=== PATIENT | male | born 1960 | race Caucasian/White ===

== ENCOUNTER 2018-04-07 05:52 | Outpatient (CLI) | payer OTHER ==
[~2018-04-07] VITALS: Ht 180.3 cm; Wt 111.6 kg
[2018-04-07] MEDS ORDERED: ASPI-586 PO (16:09)
[2018-04-07] MEDS ORDERED: METO-395 PO (16:09)
[2018-04-07] MEDS ORDERED: LISI-556 PO (16:09)
[2018-04-07] MEDS ORDERED: OMEP40CA36 PO (16:09)
[2018-04-07] MEDS ORDERED: ATOR80TA76 PO (16:09)
[2018-04-07] MEDS ORDERED: FESO8TAB PO (16:09)
[2018-04-07] MEDS ORDERED: SILD100T PO (16:09)
== END 2018-04-07 16:10 | disposition home or self-care (01) ==
LOC: PREOP 05:52
PROVIDERS: ATTEND Surgery
DX: Z01.818 Encounter for other preprocedural examination (principal)

== ENCOUNTER → 2018-04-09 | Outpatient (CLI) | payer OTHER ==
[~2018-04-09] MED LIST: ASPI-586 PO; ATOR80TA76 PO; FESO8TAB PO; LISI-556 PO; METO-395 PO; OMEP40CA36 PO; SILD100T PO
[2018-04-10 08:54] VITALS: BP 149/85
--- NOTE | 2018-04-10 08:54 | Cardiology Stress Test Report ---
Stress Test Report Date of Procedure/Referring: PCP Marco Lee MD Admitting Physician Yue Mcgarry DO Indications: Chest pain Baseline Heart Rate: 75 Baseline Blood Pressure: Blood Pressure Systolic: 149 Blood Pressure Diastolic: 85 Baseline EKG: Baseline EKG: normal sinus rhythm Summary/Conclusion: Summary: In summary, the patient started exercising with a baseline heart rate, blood pressure and EKG mentioned above Patient was able to exercise for a total of 6 minutes on Freddy protocol, 7.3 METs Maximum heart rate 149 Maximum blood pressure 216/75 Stress EKG Minimal nondiagnostic changes Recovery EKG Return to baseline Conclusion: 1. Good exercise tolerance for a total of 6 minutes on Freddy protocol, 7.3 METs , achieving 91 percent of maximum expected heart rate 2. Minimal nondiagnostic EKG changes with exercise returned to baseline during recovery 3. Occasional PVCs noted during recovery 4. Severe hypertensive response to exercise returned to baseline during recovery MARCO LEE MD Apr 10, 2018 08:54
== END ==
LOC: CARD 13:36
PROVIDERS: ATTEND Internal Medicine Cardiovascular Disease
DX: R07.89 Other chest pain (principal); E78.2 Mixed hyperlipidemia; I10 Essential (primary) hypertension; R00.2 Palpitations; E66.9 Obesity, unspecified; Z68.34 Body mass index [BMI] 34.0-34.9, adult
CPT/HCPCS: 93017

== ENCOUNTER 2018-04-11 12:30 | Day surgery (SDC) | payer OTHER ==
[~2018-04-11] VITALS: Ht 180.3 cm; Wt 111.6 kg
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
[2018-04-11 12:35] VITALS: BP 132/90
--- OUTSIDE RECORDS SUMMARY | 2018-04-11 12:35 | XMS REPORT ---
Author Author SIRIA PETERSON Organization [facility] Address [address] [place] [address] Care Team Providers Care Healthcare Economics Consultant Name Role Phone SIRIA PETERSON Unavailable PROBLEMS Type Condition ICD9-CM Code JCE02-OD Code Onset Dates Condition Status SNOMED Code Problem Benign prostatic hyperplasia with lower urinary tract symptoms N40.1 Active 050264051 Problem Seasonal allergic rhinitis, unspecified allergic rhinitis trigger J30.2 Active 440388898 Problem Overactive bladder N32.81 Active 863943901 Problem Hypertension, benign I10 Active 03200917 Problem Low back pain M54.5 Active [id number] ALLERGIES No Known Allergies ENCOUNTERS Encounter Location Date Diagnosis [facility] [address] [address] Feb, Benign prostatic hyperplasia with lower urinary tract symptoms N40.1 ; Frequency of micturition R35.0 ; History of hepatitis Z86.19 and Colon cancer screening Z12.11 [facility] [address] [place] [id number] [place] [address] 62721- 0887 Feb, [facility] [id number] [place] [address] 37683- 5398 Feb, Benign prostatic hyperplasia with lower urinary tract symptoms N40.1 ; Frequency of micturition R35.0 ; History of hepatitis Z86.19 and Colon cancer screening Z12.11 [facility] [id number] [place] [address]116 -2025 Feb, Skin rash R21 [facility] [place] [id number] [place] [address]86 -8966 Nov, Spasm of muscle of lower back M62.830 [facility] [id number] [place] [address]854 -6307 Sep, Right facial swelling R22.0 [place] [address] [address]- [address]99 14 Jun, 2017 Hypertension, benign I10 [place] [address] [address]- [address]160 09 Jun, 2017 Hypertension, benign I10 and Low back pain M54.5 [place] [address] 6[address]12- 6863 18 Jan, 2017 Encounter for immunization Z23 [facility] [address] [address] Jun, Otitis media with effusion, right H65.91 [facility] W[facility] IN [address] [address] Jun, Seasonal allergic rhinitis, unspecified allergic rhinitis trigger J30.2 [facility] WALK IN [address] 24[address]608 17 Jun, 2016 [place] [address] 71642- 6846 15 Jun, 2016 Hypertension, benign I10 [facility] W[facility] IN [address] [address] Jun, Acute suppurative otitis media of right ear without spontaneous rupture of tympanic membrane, recurrence not specified H66.001 [place] [address] 02166- 2228 May, Hypertension, benign I10 [place] [address] 91871- 2803 Mar, Ganglion cyst of finger of right hand M67.441 [facility] W[facility] IN [address] [address] 09 Mar, 2016 Sore throat J02.9 ; Fever in other diseases R50.81 and Bronchitis J40 [address] [address]- [address] Feb, [facility] [address] [address] Feb, [facility] [id number] [place] [address] 45479- 1771 Feb, [facility] [id number] [place] [address] 81090- 7530 Feb, [facility] [id number] [place] [address] 02751- 0540 Feb, [facility] [id number] [place] [address] 92177- 1321 13 Dec, 2015 Ganglion cyst of finger of right hand M67.441 [facility] [id number] [place] [address] 51166 -6512 07 Dec, 2015 [place] [address] [place] [id number] [address] 02 Dec Encounter for immunization Z23 and Laceration of left hand, initial encounter S61.412A [facility] [address] [place] [address] 47458 -8957 Nov, Ganglion cyst of finger of right hand M67.441 [facility] [address] [place] [address] 30336- 6245 Nov, [facility] [id number] [place] [address] 38388- 5989 Oct, [facility] [id number] [place] [address] 18631 -8969 Jun, Sinusitis J32.9 [facility] [id number] [place] [address] 44930- 4114 Apr, [facility] [id number] [place] [address] 47540- 4949 Apr, [facility] [id number] [place] [address] 09549- 3835 Apr, [facility] [id number] [place] [address] 01028- 3851 Apr, [facility] [id number] [place] [address] 79249- 9675 Apr, [facility] [id number] [place] [address] 13844- 5037 Mar, [facility] [address] 12363- 0034 Mar, Hypertension, benign I10 [facility] [address] 84233- 8283 Mar, Hypertension, benign I10 [facility] [id number] [place] [address] 77524 -5259 Mar, Bronchitis J40 and Cough R05 [facility] [address] 02275- 2878 Jan, Insect bite (nonvenomous), left knee, initial encounter S80.262A [facility] [address] [address]20- 1856 Jan, HTN (hypertension) 401.9 [facility] [id number] [place] [address] 23143- 0460 Nov, HTN (hypertension) 401.9 [facility] [id number] [place] [address] 77327- 0608 Nov, HTN (hypertension) 401.9 [facility] [id number] [place] [address] 96730- 2309 Oct, [facility] [id number] [place] [address] [id number] Oct, Dental examination V72.2 [facility] [id number] [place] [address] 53089- 3924 Jul, [facility] [address] [place] [address]- 0992 13 Jul, 2014 [facility] [place] [facility] [address] [id number] [place] [address]- 6439 Jun, [facility] [place] [facility] [address] [id number] [place] [address]- 3459 Jun, [facility] [place] [facility] [address] [id number] [place] [address]- 5399 Apr, [facility] [place] [facility] [address] [id number] [place] [address]- 7774 Apr, [facility] [place] [facility] [address] [id number] [place] [address]- 3782 Apr, [facility] [place] [facility] [address] [id number] [place] [address]- 9497 Apr, [facility] [place] [facility] [address] [id number] [place] [address]- 8993 Apr, [facility] [place] [facility] [address] [id number] [place] [address]- 7655 Apr, [facility] [place] [facility] [address] [id number] [place] [address]- 7221 Apr, [facility] [place] [facility] [address] [id number] [place] [address]- 6751 Apr, [facility] [place] [facility] [address] [id number] [place] [address]- 3610 Apr, [facility] [place] [facility] [address] [id number] [place] [address]- 3953 Oct, [facility] [place] [facility] [address] [id number] [place] [address]- 7778 Oct, [facility] [place] [facility] [address] [id number] [place] [address]- 2927 Sep, [facility] [place] [facility] [address] [id number] [place] [address]- 0612 Sep, [facility] [place] [facility] [address] [id number] [place] [address]- 4373 Sep, [facility] [place] [facility] [address] [id number] [place] [address]- 4708 Sep, [facility] [place] [facility] [address] [id number] [place] [address]- 0428 Sep, [facility] [place] [facility] [address] [id number] [place] [address]- 4685 Sep, [facility] [place] [facility] [address] [id number] [place] [address]- 3452 Jul, [facility] [place] [facility] [address] [id number] [place] [address]- 2762 Jul, [facility] [place] [facility] [address] [id number] [place] [address]- 1912 Jul, [facility] [place] [facility] [address] [id number] [place] [address]- 9380 Jul, [facility] [place] [facility] [address] [id number] [place] [address]- 1011 Jul, [facility] [place] [facility] [address] [id number] [place] [address]- 9480 Jul, [facility] [place] [facility] [address] [id number] [place] [address]- 0016 Jul, [facility] [place] [facility] [address] [id number] [place] [address]- 0036 Jul, [facility] [place] [facility] [address] [id number] [place] [address]- 9736 Jun, [facility] [place] [facility] [address] [id number] [place] [address]- 0732 Jun, [facility] [place] [facility] [address] [id number] [place] [address]- 4064 Jun, [facility] [place] [facility] [address] [id number] [place] [address]- 1476 Jun, [facility] [place] [facility] [address] [id number] [place] [address]- 9273 Jun, [facility] [place] [facility] [address] [id number] [place] [address]- 1516 Jun, [facility] [place] [facility] [address] [id number] [place] [address]- 0529 Jun, [facility] [place] [facility] [address] [id number] [place] [address]- 0990 Jun, [facility] [place] [facility] [address] [id number] [place] [address]- 5878 Jun, [facility] [place] [facility] [address] [id number] [place] [address]- 4763 Jun, [facility] [place] [facility] [address] [id number] [place] [address]- 8858 Apr, [facility] [place] [facility] [address] [id number] [place] [address]- 0247 Apr, [facility] [place] [facility] [address] [id number] [place] [address]- 5594 Apr, [facility] [place] [facility] [address] [id number] [place] [address]- 3758 Apr, [facility] [place] [facility] [address] [id number] [place] [address]- 0930 Apr, [facility] [place] [facility] [address] [id number] [place] [address]- 2445 Apr, [facility] [place] [facility] [address] [id number] [place] [address]- 3966 Mar, [facility] [place] [facility] [address] [id number] [place] [address]- 0375 Mar, [facility] [place] [facility] [address] [id number] [place] [address]- 4122 Mar, [facility] [place] [facility] [address] [id number] [place] [address]- 3386 Mar, [facility] [address] [id number] [place] [address]- 4357 Mar, [facility] [address] [id number] [place] [address]- 9953 Mar, [facility] [address] [id number] [place] [address]- 0830 Mar, [facility] [address] [id number] [place] [address]- 9653 Mar, [facility] [address] [id number] [place] [address]- 4691 Mar, [facility] [address] [id number] [place] [address]- 7384 Feb, [facility] [address] [id number] [place] [address]- 6238 Feb, [facility] [address] [id number] [place] [address]- 2779 Dec, [facility] [address] [id number] [place] [address]- 0073 Dec, [facility] [address] [id number] [place] [address]- 2451 Nov, [facility] [place] [facility] [address] [id number] [place] [address]- 7946 14 Nov, 2012 [facility] [address] [id number] [place] [address]- 6383 Nov, [facility] [place] [facility] [address] [id number] [place] [address]- 2569 17 Oct, 2012 [facility] [place] [facility] [address] [id number] [place] [address]- 5745 Sep, [facility] [address] [id number] [place] [address]- 1654 Sep, [facility] [address] [id number] [place] [address]- 1299 02 Jul, 2012 [facility] [place] [facility] [address] [id number] [place] [address]- 0378 28 Jun, 2012 [facility] [place] [facility] [address] [id number] [place] [address]- 5536 22 Jun, 2012 [facility] [place] [facility] [address] [id number] [place] [address]- 6606 Jun, [facility] [place] [facility] [address] [id number] [place] [address]- 0316 Jun, [facility] [place] [facility] [address] [id number] [place] [address]- 6700 20 Jun, 2012 [facility] [place] [facility] [address] [id number] [place] [address]- 5605 Jun, [facility] [place] [facility] [address] [id number] [place] [address]- 5616 08 Jun, 2012 [facility] [place] [facility] [address] [id number] [place] [address]- 5641 07 Jun, 2012 [facility] [place] [facility] [address] [id number] [place] [address]- 7773 Feb, [facility] [place] [facility] [address] [id number] [place] [address]- 3987 23 Feb, 2012 [facility] [place] [facility] [address] [id number], [place] [address]- 4394 20 Feb, 2012 [facility] [place] [facility] [address] [id number] [place] [address]- 3226 Feb, [facility] [place] [facility] [address] [id number] [place] [address]- 1286 19 Feb, 2012 [facility] [place] [facility] [address] [id number], [place] [address]- 0990 14 Feb, 2012 [facility] [place] [facility] [address] [id number], [place] [address]- 0048 13 Feb, 2012 [facility] [place] [facility] [address] [id number] [place] [address]- 7040 13 Feb, 2012 [facility] [place] [facility] [address] [id number] [place] [address]- 1020 12 Feb, 2012 [facility] [place] [facility] [address] [facility] [id number] [place] [address]- 7780 12 Feb, 2012 [facility] [place] [facility] [address] [id number] [place] [address]- 1269 16 Jan, 2012 [facility] [place] [facility] [address] [id number] [place] [address]- 6375 16 Jan, 2012 [facility] [place] [facility] [address] [id number] [place] [address]- 8210 16 Jan, 2012 [facility] [place] [facility] [address] [facility] [facility] [id number] [place] [address]- 3880 16 Jan, 2012 [facility] [place] [facility] [address] [id number] [place] [address]- 6772 18 Dec, 2011 [facility] [place] [facility] [address] [facility] [facility] [id number] [place] [address]- 9694 14 Dec, 2011 [facility] [place] [facility] [address] [facility] [facility] [id number] [place] [address]- 1377 13 Dec, 2011 [facility] [place] [facility] [address] [id number] [place] [address]- 7737 14 Nov, 2011 [facility] [place] [facility] [address] [id number], [place] [address]- 2238 Nov, [facility] [place] [facility] [address] [id number] [place] [address]- 6343 Nov, [facility] [place] [facility] [address] [facility] [facility] [id number] [place] [address]- 7129 05 Oct, 2011 [facility] [place] [facility] [address] [facility] [facility] [id number] [place] [address]- 9723 Sep, [facility] [place] [facility] [address] [id number] [place] [address]- 5660 11 Sep, 2011 [facility] [place] [facility] [address] [id number] [place] [address]- 9446 24 Aug, 2011 [facility] [place] [facility] [address] [id number] [place] [address]- 9806 August, [facility] [place] [facility] [address] [id number] [place] [address]- 2964 August, [facility] [place] [facility] [address] [id number] [place] [address]- 2967 Jul, [facility] [place] [facility] [address] [id number] [place] [address]- 6327 30 Jun, 2011 [facility] [place] [facility] [address] [id number] [place] [address]- 5803 Jun, [facility] [place] [facility] [address] [id number] [place] [address]- 8848 Jun, [facility] [place] [facility] [address] [id number] [place] [address]- 0763 16 Jun, 2011 [facility] [place] [facility] [address] [id number] [place] [address]- 8096 14 Jun, 2011 [facility] [place] [facility] [address] [id number] [place] [address]- 4830 May, [facility] [place] [facility] [address] [id number] [place] [address]- 6723 May, [facility] [place] [facility] [address] [id number] [place] [address]- 4574 May, [facility] [place] [facility] [address] [id number] [place] [address]- 1148 17 May, 2011 [facility] [place] [facility] [address] [id number] [place] [address]- 0192 Apr, [facility] [place] [facility] [address] [id number], [place] [address]- 6804 Apr, [facility] [place] [facility] [address] [id number] [place] [address]- 0504 Apr, [facility] [place] [facility] [address] [id number] [place] 9998 Apr, [facility] [place] [facility] [address] [id number] [place] [address]- 8387 Mar, [facility] [place] [facility] [address] [id number], [place] [address]- 0899 Mar, [facility] [place] [facility] [address] [id number] [place] [address]- 1141 Feb, [facility] [place] [facility] [address] [id number] [place] [address]- 9494 Feb, [facility] [place] [facility] [address] [id number] [place] [address]- 7458 Feb, [facility] [place] [facility] [address] [id number], [place] [address]- 9929 Feb, [facility] [place] [facility] [address] [id number], [place] [address]- 3217 Feb, [facility] [place] [facility] [address] [id number] [place] [address]- 0647 Feb, [facility] [place] [facility] [address] [id number], [place] [address]- 0613 Jan, [facility] [place] [facility] [address] [id number], [place] [address]- 2326 Jan, [facility] [place] [facility] [address] [id number], [place] [address]- 4759 Jan, [facility] [place] [facility] [address] [id number], [place] [address]- 6898 Jan, [facility] [place] [facility] [address] [id number], [place] [address]- 3435 Jan, [facility] [place] [facility] [address] [facility] [address] [facility] [id number] [place] [address]- 6248 Jan, [facility] [address] [id number] [address]- 0304 Mar, [facility] [address] [address]- 1440 Mar, [facility] [address] [id number] [address]- 4796 Mar, [facility] [address] [id number] [address]- 1002 Mar, [facility] [address] [address]- 7033 Feb, IMMUNIZATIONS No Known Immunizations SOCIAL HISTORY Never Assessed REASON FOR VISIT HTN, PT reports this is yearly -[facility] PLAN OF CARE VITAL SIGNS Height 70 in 2018-03-19 Weight 242.5 lbs 2018-03-19 Temperature 98.6 degrees Fahrenheit 2018-03-19 Heart Rate 77 bpm 2018-03-19 Respiratory Rate 18 2018-03-19 Oximetry 98 % 2018-03-19 BMI 34.79 kg/m2 2018-03-19 Blood pressure systolic 128 mmHg 2018-03-19 Blood pressure diastolic 70 mmHg 2018-03-19 MEDICATIONS Medication Instructions Dosage Frequency Start Date End Date Duration Status Acyclovir 400 mg Orally Twice a day 1 tablet 12h May, Active Omeprazole 20 mg Orally 2 times a day 1 capsule 12h 30 Active Claritin 10 mg Orally Once a day 1 tablet 24h Active Toprol XL 100 MG Orally Once a day 1 tablet 24h Active ProAir HFA 108 (90 Base) MCG/ACT Inhalation every 4 hrs 2 puffs as needed 4h Jun, Not-Taking Daina 0.5-0.4 MG Orally Once a day 1 capsule 24h Active Lipitor 80 MG Orally Once a day 1 tablet 24h Active Flonase Allergy Relief 50 MCG/ACT Nasally twice per day 1 spray in each nostril Jun, Active Promethazine-Codeine 6.25-10 MG/5ML Orally every 6 hrs 5 ml as needed 6h Jun, Not-Taking Toviaz 8 MG Orally Once a day 1 tablet 24h 30 Active Viagra 100 MG Orally Once a day 1 tablet as needed 24h 17 Nov, 2015 Active Cyclobenzaprine HCl 10 MG Orally Three times a day 1 tablet as needed 8h 5 days Not-Taking RESULTS No Results PROCEDURES No Known procedures INSTRUCTIONS MEDICATIONS ADMINISTERED No Known Medications MEDICAL (GENERAL) HISTORY Type Description Date Medical History hypertension Medical History hx of hepatitis C; finished treatment 2011 Medical History hyperlipidemia Medical History enlarged prostate Surgical History cholecystectomy by Dr. Mckenzie 2005 Surgical History otolaryngologic surgery-parathyroid removed by Dr. Cuenca 2005 Surgical History orthopaedic surgery d/t [facility] Hospitalization History Hospitalization for surgery only
--- OUTSIDE RECORDS SUMMARY | 2018-04-11 12:35 | XMS REPORT ---
Author Author SIRIA PETERSON Organization [facility] Address [address] [place] [address] Care Team Providers Care Radiographic Technologist Name Role Phone SIRIA PETERSON Unavailable PROBLEMS Type Condition ICD9-CM Code MJA28-RT Code Onset Dates Condition Status SNOMED Code Problem Benign prostatic hyperplasia with lower urinary tract symptoms N40.1 Active 341111908 Problem Seasonal allergic rhinitis, unspecified allergic rhinitis trigger J30.2 Active 593649864 Problem Overactive bladder N32.81 Active 962334970 Problem Hypertension, benign I10 Active 25644340 Problem Low back pain M54.5 Active [id number] ALLERGIES No Information ENCOUNTERS Encounter Location Date Diagnosis [facility] [address] [address] Mar, [facility] [address] [address] Feb, Benign prostatic hyperplasia with lower urinary tract symptoms N40.1 ; Frequency of micturition R35.0 ; History of hepatitis Z86.19 and Colon cancer screening Z12.11 [facility] [id number] [place] [address] 38255- 0358 Feb, [facility] [address] [place] [address]90- 2199 Feb, Benign prostatic hyperplasia with lower urinary tract symptoms N40.1 ; Frequency of micturition R35.0 ; History of hepatitis Z86.19 and Colon cancer screening Z12.11 [facility] [id number] [place] [address]69 -2228 Feb, Skin rash R21 [facility] [id number] [place] [address]64 -8609 Nov, Spasm of muscle of lower back M62.830 [id number] [place] [address]359 -6136 09 Sep, 2017 Right facial swelling R22.0 [place] [address] [address]- [address] 14 Jun, 2017 Hypertension, benign I10 [place] [address] 63826- 3712 09 Jun, 2017 Hypertension, benign I10 and Low back pain M54.5 [place] [address] 44171- [address]80 18 Jan, 2017 Encounter for immunization Z23 [facility] [address] [address] Jun, Otitis media with effusion, right H65.91 [facility] [address] [address] Jun, Seasonal allergic rhinitis, unspecified allergic rhinitis trigger J30.2 [facility] [place] [address] [address] 17 Jun, 2016 [place] [address] 83977- 4640 15 Jun, 2016 Hypertension, benign I10 [facility] [place] [address] 8[address] Jun, Acute suppurative otitis media of right ear without spontaneous rupture of tympanic membrane, recurrence not specified H66.001 [place] [id number] [place] [address] 19394- 8950 May, Hypertension, benign I10 [place] [address] 54288- 4018 Mar, Ganglion cyst of finger of right hand M67.441 [facility] [place] [id number] [place] [address] 96525 -0946 Mar, Sore throat J02.9 ; Fever in other diseases R50.81 and Bronchitis J40 [facility] [address] [address] Feb, [facility] [id number] [place] [address] 94177- 4532 Feb, [facility] [id number] [place] [address] 76941- 1966 Feb, [facility] [id number] [place] [address] 87229- 7977 Feb, [facility] [id number] [place] [address] 68675- 3832 Feb, [facility] [id number] [place] [address] 25955- 4681 Dec, Ganglion cyst of finger of right hand M67.441 [facility] [address] [place] [id number] [place] [address] 60366 -2511 Dec, [place] [address] [address] [id number] [address] 02 Dec Encounter for immunization Z23 and Laceration of left hand, initial encounter S61.412A [facility] [id number] [place] [address] 00887 -6836 Nov, Ganglion cyst of finger of right hand M67.441 [facility] [id number] [place] [address] 50808- 9148 Nov, [facility] [id number] [place] [address] 29597- 6483 Oct, [facility] [id number] [place] [address] 64949 -9060 Jun, Sinusitis J32.9 [facility] [id number] [place] [address] 48103- 4986 Apr, [facility] [id number] [place] [address] 83648- 1068 Apr, [facility] [id number] [place] [address] 44223- 7953 Apr, [facility] [address] 24991- 1771 Apr, [facility] [address] 34847- 9967 Apr, [facility] [address] 46458- 8254 Mar, [facility] [address] 71104- 2210 Mar, Hypertension, benign I10 [facility] [address] 07402- 9222 Mar, Hypertension, benign I10 [facility] [address] 23393 -8647 Mar, Bronchitis J40 and Cough R05 [facility] [id number] [place] [address] 94525- 3528 Jan, Insect bite (nonvenomous), left knee, initial encounter S80.262A [facility] [id number] [place] [address] 25013- 4468 Jan, HTN (hypertension) 401.9 [facility] [address] 75243- 7962 Nov, HTN (hypertension) 401.9 [facility] [id number] [place] [address] 68796- 8722 Nov, HTN (hypertension) 401.9 [facility] [address] 30320- 0919 Oct, [facility] [id number] [place] [address] [id number] Oct, 2014 Dental examination V72.2 [facility] [address] [place] [address]- 4508 14 Jul, 2014 [facility] [place] [facility] [address] [id number] [place] [address]- 5174 13 Jul, 2014 [facility] [place] [facility] [address] [id number] [place] [address]- 8678 Jun, [facility] [place] [facility] [address] [id number] [place] [address]- 6279 Jun, [facility] [place] [facility] [address] [id number] [place] [address]- 8065 Apr, [facility] [place] [facility] [address] [id number] [place] [address]- 7433 Apr, [facility] [place] [facility] [address] [id number] [place] [address]- 4500 Apr, [facility] [place] [facility] [address] [id number] [place] [address]- 1246 Apr, [facility] [place] [facility] [address] [id number] [place] [address]- 3696 Apr, [facility] [place] [facility] [address] [id number] [place] [address]- 7241 Apr, [facility] [place] [facility] [address] [id number] [place] [address]- 3320 Apr, [facility] [place] [facility] [address] [id number] [place] [address]- 4815 Apr, [facility] [place] [facility] [address] [id number] [place] [address]- 6328 Apr, [facility] [place] [facility] [address] [id number] [place] [address]- 8133 Oct, [facility] [place] [facility] [address] [id number] [place] [address]- 1705 Oct, [facility] [place] [facility] [address] [id number] [place] [address]- 7463 Sep, [facility] [place] [facility] [address] [id number] [place] [address]- 0596 Sep, [facility] [place] [facility] [address] [id number] [place] [address]- 5071 Sep, [facility] [place] [facility] [address] [id number] [place] [address]- 2592 Sep, [facility] [place] [facility] [address] [id number] [place] [address]- 0861 Sep, [facility] [place] [facility] [address] [id number] [place] [address]- 7850 Sep, [facility] [place] [facility] [address] [id number] [place] [address]- 1566 Jul, [facility] [place] [facility] [address] [id number] [place] [address]- 8032 Jul, [facility] [place] [facility] [address] [id number] [place] [address]- 8677 Jul, [facility] [place] [facility] [address] [id number] [place] [address]- 9418 Jul, [facility] [place] [facility] [address] [id number] [place] [address]- 5153 Jul, [facility] [place] [facility] [address] [id number] [place] [address]- 9592 Jul, [facility] [place] [facility] [address] [id number] [place] [address]- 6720 Jul, [facility] [place] [facility] [address] [id number] [place] [address]- 1837 Jul, [facility] [place] [facility] [address] [id number] [place] [address]- 2482 Jun, [facility] [place] [facility] [address] [id number] [place] [address]- 4618 Jun, [facility] [place] [facility] [address] [id number] [place] [address]- 9115 Jun, [facility] [place] [facility] [address] [id number] [place] [address]- 6778 Jun, [facility] [place] [facility] [address] [id number] [place] [address]- 5266 Jun, [facility] [place] [facility] [address] [id number] [place] [address]- 2562 Jun, [facility] [place] [facility] [address] [id number] [place] [address]- 5450 Jun, [facility] [place] [facility] [address] [id number] [place] [address]- 3639 Jun, [facility] [place] [facility] [address] [id number] [place] [address]- 7243 Jun, [facility] [place] [facility] [address] [id number] [place] [address]- 9931 Jun, [facility] [place] [facility] [address] [id number] [place] [address]- 3888 Apr, [facility] [place] [facility] [address] [id number] [place] [address]- 8240 Apr, [facility] [place] [facility] [address] [id number] [place] [address]- 5436 Apr, [facility] [place] [facility] [address] [id number] [place] [address]- 9167 Apr, [facility] [place] [facility] [address] [id number] [address]- 9258 Apr, [facility] [place] [facility] [address] [id number] [place] [address]- 0608 Apr, [facility] [place] [facility] [address] [id number] [place] [address]- 9686 Mar, [facility] [place] [facility] [address] [id number] [place] [address]- 0676 Mar, [facility] [place] [facility] [address] [id number] [place] [address]- 6034 24 Mar, 2013 [facility] [address] [id number] [place] [address]- 2985 Mar, [facility] [address] [id number] [place] 5247 Mar, [facility] [address] [id number] [place] [address]- 5780 Mar, [facility] [address] [id number] [place] [address]- 9411 Mar, [facility] [address] [id number] [place] [address]- 6299 Mar, [facility] [address] [id number] [place] [address]- 5140 Mar, [facility] [address] [id number] [place] [address]- 2010 Feb, [facility] [address] [id number] [place] [address]- 9682 Feb, [facility] [address] [id number] [place] [address]- 9071 Dec, [facility] [address] [id number] [place] [address]- 0169 Dec, [facility] [address] [id number] [place] [address]- 5263 20 Nov, 2012 [facility] [address] [id number] [place] [address]- 5546 14 Nov, 2012 [facility] [place] [facility] [address] [id number] [place] [address]- 1579 Nov, [facility] [place] [facility] [address] [id number] [place] [address]- 6050 17 Oct, 2012 [facility] [address] [id number] [place] [address]- 3844 Sep, [facility] [place] [facility] [address] [id number] [place] [address]- 3401 06 Sep, 2012 [facility] [place] [facility] [address] [id number] [place] 3119 Jul, [facility] [place] [facility] [address] [id number] [place] [address]- 1361 Jun, [facility] [place] [facility] [address] [id number] [place] [address]- 5808 Jun, [facility] [address] [id number] [place] [address]- 2948 Jun, [facility] [place] [facility] [address] [id number] [place] [address]- 8465 Jun, [facility] [address] [id number] [place] [address]- 7224 Jun, [facility] [address] [id number] [place] [address]- 3537 Jun, [facility] [address] [id number] [place] [address]- 2635 Jun, [facility] [address] [id number] [place] [address]- 2623 Jun, [facility] [address] [id number] [place] [address]- 1590 Feb, [facility] [place] [facility] [address] [id number] [address]- 1257 Feb, [facility] [place] [facility] [address] [id number] [place] [address]- 4336 Feb, [facility] [place] [facility] [address] [id number] [place] [address]- 4292 Feb, [facility] [place] [facility] [address] [id number] [place] 8616 Feb, [facility] [place] [facility] [address] [id number], [place] [address]- 5461 14 Feb, 2012 [facility] [place] [facility] [address] [id number] [place] [address]- 0520 13 Feb, 2012 [facility] [place] [facility] [address] [id number] [place] [address]- 2104 13 Feb, 2012 [facility] [place] [facility] [address] [id number] [place] [address]- 2868 12 Feb, 2012 [facility] [place] [facility] [address] [id number] [place] [address]- 4363 12 Feb, 2012 [facility] [place] [facility] [address] [id number] [place] [address]- 5488 16 Jan, 2012 [facility] [place] [facility] [address] [id number] [place] [address]- 5779 16 Jan, 2012 [facility] [place] [facility] [address] [id number] [place] [address]- 9753 16 Jan, 2012 [facility] [place] [facility] [address] [id number] [place] [address]- 1798 16 Jan, 2012 [facility] [place] [facility] [address] [id number] [place] [address]- 5041 18 Dec, 2011 [facility] [place] [facility] [address] [id number] [place] [address]- 9665 14 Dec, 2011 [facility] [place] [facility] [address] [id number] [place] [address]- 8625 13 Dec, 2011 [facility] [place] [facility] [address] [id number] [place] [address]- 4068 14 Nov, 2011 [facility] [place] [facility] [address] [id number] [place] [address]- 5824 Nov, [facility] [place] [facility] [address] [id number] [place] 2910 03 Nov, 2011 [facility] [place] [facility] [address] [id number] [place] [address]- 5207 05 Oct, 2011 [facility] [place] [facility] [address] [id number] [place] [address]- 8771 29 Sep, 2011 [facility] [place] [facility] [address] [id number] [place] [address]- 1287 Sep, [facility] [place] [facility] [address] [id number] [place] [address]- 2906 24 Aug, 2011 [facility] [place] [facility] [address] [id number] [place] [address]- 3014 August, [facility] [place] [facility] [address] [id number] [place] [address]- 7273 August, [facility] [place] [facility] [address] [id number] [place] [address]- 9300 04 Jul, 2011 [facility] [place] [facility] [address] [id number] [place] [address]- 3087 30 Jun, 2011 [facility] [place] [facility] [address] [id number] [place] [address]- 0467 23 Jun, 2011 [facility] [place] [facility] [address] [id number] [place] [address]- 9615 19 Jun, 2011 [facility] [place] [facility] [address] [id number] [place] [address]- 5776 16 Jun, 2011 [facility] [place] [facility] [address] [id number] [place] [address]- 3824 14 Jun, 2011 [facility] [place] [facility] [address] [id number] [place] [address]- 4825 23 May, 2011 [facility] [place] [facility] [address] [id number] [place] [address]- 9633 May, [facility] [place] [facility] [address] [id number] [place] [address]- 9371 20 May, 2011 [facility] [place] [facility] [address] [id number] [place] [address]- 5946 17 May, 2011 [facility] [place] [facility] [address] [id number] [place] [address]- 1607 Apr, [facility] [place] [facility] [address] [id number] [place] [address]- 4871 Apr, [facility] [place] [facility] [address] [id number] [place] [address]- 0436 Apr, [facility] [place] [facility] [address] [id number] [place] [address]- 4196 Apr, [facility] [place] [facility] [address] [id number] [place] [address]- 2899 Mar, [facility] [place] [facility] [address] [id number] [place] [address]- 0454 Mar, [facility] [place] [facility] [address] [id number] [place] [address]- 0774 Feb, [facility] [place] [facility] [address] [id number] [place] [address]- 7741 Feb, [facility] [place] [facility] [address] [id number], [place] [address]- 7222 Feb, [facility] [place] [facility] [address] [id number], [place] [address]- 5905 Feb, [facility] [place] [facility] [address] [id number], [place] [address]- 9814 Feb, [facility] [place] [facility] [address] [id number], [place] [address]- 9343 Feb, [facility] [place] [facility] [address] [id number], [place] [address]- 4044 Jan, [facility] [place] [facility] [address] [id number] [place] [address]- 9138 Jan, [facility] [place] [facility] [address] [id number], [place] [address]- 0449 Jan, [facility] [place] [facility] [address] [id number], [place] [address]- 9935 Jan, [facility] [place] [facility] [address] [id number] [address]- 9738 13 Jan, 2011 [facility] [address] [id number] [address]- 8119 Jan, [facility] [id number] [address] Mar, [facility] [address] [id number] [address] Mar, [facility] [id number] [address] Mar, [facility] [address] [id number] [address] Mar, [facility] [address] [id number] [address] Feb, IMMUNIZATIONS No Known Immunizations SOCIAL HISTORY Never Assessed REASON FOR VISIT update referral PLAN OF CARE VITAL SIGNS MEDICATIONS Unknown [...]
--- OUTSIDE RECORDS SUMMARY | 2018-04-11 12:35 | XMS REPORT ---
Author Author CHIARA TYLER Organization [facility] Address [address] [place] [address] Care Team Providers Care Senior Geologist Name Role Phone RIVAS CHIARA JEFFERS Unavailable PROBLEMS Type Condition ICD9-CM Code ING26-UF Code Onset Dates Condition Status SNOMED Code Problem Benign prostatic hyperplasia with lower urinary tract symptoms N40.1 Active 129937807 Problem Seasonal allergic rhinitis, unspecified allergic rhinitis trigger J30.2 Active 006063863 Problem Overactive bladder N32.81 Active 519220957 Problem Hypertension, benign I10 Active 54274056 Problem Low back pain M54.5 Active [id number] ALLERGIES No Known Allergies ENCOUNTERS Encounter Location Date Diagnosis [facility] [address] [address] Feb, Benign prostatic hyperplasia with lower urinary tract symptoms N40.1 ; Frequency of micturition R35.0 ; History of hepatitis Z86.19 and Colon cancer screening Z12.11 [facility] [id number] [place] [address] 01090- 0046 Feb, [facility] [id number] [place] [address] 33183- 3300 Feb, Benign prostatic hyperplasia with lower urinary tract symptoms N40.1 ; Frequency of micturition R35.0 ; History of hepatitis Z86.19 and Colon cancer screening Z12.11 [facility] [id number] [place] [address] 60021 -1780 Feb, Skin rash R21 [facility] [id number] [place] [address] 15588 -0956 Nov, Spasm of muscle of lower back M62.830 [facility] [id number] [place] [address] 85671 -1385 09 Sep, 2017 Right facial swelling R22.0 [place] [id number] [place] [address] 99978- 9997 14 Jun, 2017 Hypertension, benign I10 [place] [id number] [place] [address] 43867- 6646 09 Jun, 2017 Hypertension, benign I10 and Low back pain M54.5 [place] [address] [address]- 8669 18 Jan, 2017 Encounter for immunization Z23 [facility] [address] [address] Jun, Otitis media with effusion, right H65.91 [facility] [address] [address] Jun, Seasonal allergic rhinitis, unspecified allergic rhinitis trigger J30.2 [facility] [address] [address] -[address]772 17 Jun, [address] [address]- 1153 15 Jun, 2016 Hypertension, benign I10 [facility] [place] [id number] [place] [address] 96548 -1038 12 Jun, 2016 Acute suppurative otitis media of right ear without spontaneous rupture of tympanic membrane, recurrence not specified H66.001 [place] [id number] [place] [address] 68998- 1750 May, Hypertension, benign I10 [place] [id number] [place] [address] 88803- 7840 Mar, Ganglion cyst of finger of right hand M67.441 [facility] [place] [id number] [place] [address] 85790 -8058 09 Mar, 2016 Sore throat J02.9 ; Fever in other diseases R50.81 and Bronchitis J40 [address] [address] Feb, [facility] [id number] [place] [address] 30284- 0529 Feb, [facility] [id number] [place] [address] 57986- 8191 Feb, [facility] [id number] [place] [address] 21330- 0154 Feb, [facility] [id number] [place] [address] 14630- 7026 Feb, [facility] [id number] [place] [address] 81439- 4655 Dec, Ganglion cyst of finger of right hand M67.441 [facility] [id number] [place] [address] 96732 -8335 07 Dec, 2015 [place] [address] [address] [id number] [place] [address] Dec Encounter for immunization Z23 and Laceration of left hand, initial encounter S61.412A [facility] [id number] [place] [address] 46710 -0687 Nov, Ganglion cyst of finger of right hand M67.441 [facility] [id number] [place] [address] 59165- 0659 Nov, [facility] [id number] [place] [address] 70761- 9458 Oct, [facility] [id number] [place] [address] 23257 -9880 Jun, Sinusitis J32.9 [facility] [id number] [place] [address] 04710- 3492 Apr, [facility] [id number] [place] [address] 52967- 1730 Apr, [facility] [address] [address]- [address] Apr, [facility] [address] 81316- 4245 Apr, [facility] [address] 24760- 0450 Apr, [facility] [address] 20921- 8530 Mar, [facility] [address] 87793- 2928 Mar, Hypertension, benign I10 [facility] [address] 68187- 0142 Mar, Hypertension, benign I10 [facility] [address] [address] Mar, Bronchitis J40 and Cough R05 [facility] [address] 08850- 8280 Jan, Insect bite (nonvenomous), left knee, initial encounter S80.262A [facility] [address] 04911- 2726 Jan, HTN (hypertension) 401.9 [facility] [address] 02223- 5783 Nov, HTN (hypertension) 401.9 [facility] [address] [address]31- 1581 Nov, HTN (hypertension) 401.9 [facility] [id number] [place] [address] 50577- 4474 Oct, [facility] [address] [id number] Oct, Dental examination V72.2 [facility] [address] 64768- 7597 Jul, [facility] [address] [id number] [place] [address]- 6733 Jul, [facility] [place] [facility] [address] [id number] [place] [address]- 0600 Jun, [facility] [place] [facility] [address] [id number] [place] [address]- 4207 Jun, [facility] [place] [facility] [address] [id number] [place] [address]- 6374 Apr, [facility] [place] [facility] [address] [id number] [place] [address]- 7698 Apr, [facility] [place] [facility] [address] [id number] [place] [address]- 3884 Apr, [facility] [place] [facility] [address] [id number] [place] [address]- 9668 Apr, [facility] [place] [facility] [address] [id number] [place] [address]- 9508 Apr, [facility] [place] [facility] [address] [id number] [place] [address]- 2051 Apr, [facility] [place] [facility] [address] [id number] [place] [address]- 9478 Apr, [facility] [place] [facility] [address] [id number] [place] [address]- 9174 Apr, [facility] [place] [facility] [address] [id number] [place] [address]- 3719 Apr, [facility] [place] [facility] [address] [id number] [place] [address]- 8273 Oct, [facility] [place] [facility] [address] [id number] [place] [address]- 4191 Oct, [facility] [place] [facility] [address] [id number] [place] [address]- 0606 Sep, [facility] [place] [facility] [address] [id number] [place] [address]- 1261 Sep, [facility] [place] [facility] [address] [id number] [place] [address]- 7297 Sep, [facility] [place] [facility] [address] [id number] [place] [address]- 0074 Sep, [facility] [place] [facility] [address] [id number] [place] [address]- 6354 Sep, [facility] [place] [facility] [address] [id number] [place] [address]- 8728 Sep, [facility] [place] [facility] [address] [id number] [place] [address]- 7031 Jul, [facility] [place] [facility] [address] [id number] [place] [address]- 3690 Jul, [facility] [place] [facility] [address] [id number] [place] [address]- 9975 Jul, [facility] [place] [facility] [address] [id number] [place] [address]- 7241 Jul, [facility] [place] [facility] [address] [id number] [place] [address]- 7224 Jul, [facility] [place] [facility] [address] [id number] [place] [address]- 2532 Jul, [facility] [place] [facility] [address] [id number] [place] [address]- 5429 Jul, [facility] [place] [facility] [address] [id number] [place] [address]- 9045 Jul, [facility] [place] [facility] [address] [id number] [place] [address]- 1109 Jun, [facility] [place] [facility] [address] [id number] [place] [address]- 8707 Jun, [facility] [place] [facility] [address] [id number] [place] [address]- 8640 Jun, [facility] [place] [facility] [address] [id number] [place] [address]- 8103 Jun, [facility] [place] [facility] [address] [id number] [place] [address]- 2776 Jun, [facility] [place] [facility] [address] [id number] [place] [address]- 9604 Jun, [facility] [place] [facility] [address] [id number] [place] [address]- 4716 Jun, [facility] [place] [facility] [address] [id number] [place] [address]- 6055 Jun, [facility] [place] [facility] [address] [id number] [place] [address]- 8337 Jun, [facility] [place] [facility] [address] [id number] [place] [address]- 9246 Jun, [facility] [place] [facility] [address] [id number] [place] [address]- 3677 Apr, [facility] [place] [facility] [address] [id number] [place] [address]- 5976 Apr, [facility] [place] [facility] [address] [id number] [place] [address]- 5220 Apr, [facility] [place] [facility] [address] [id number] [place] [address]- 8704 Apr, [facility] [place] [facility] [address] [id number] [place] [address]- 2511 Apr, [facility] [place] [facility] [address] [id number] [place] [address]- 5524 Apr, [facility] [place] [facility] [address] [id number] [place] [address]- 5243 Mar, [facility] [place] [facility] [address] [id number] [place] [address]- 7656 Mar, [facility] [place] [facility] [address] [id number] [place] [address]- 8206 Mar, [facility] [place] [facility] [address] [id number] [place] [address]- 8577 Mar, [facility] [address] [id number] [place] [address]- 6876 Mar, [facility] [place] [facility] [address] [id number] [place] [address]- 2871 Mar, [facility] [place] [facility] [address] [id number] [place] [address]- 6376 Mar, [facility] [place] [facility] [address] [id number] [place] [address]- 9828 Mar, [facility] [place] [facility] [address] [id number] [place] [address]- 4047 Mar, [facility] [address] [id number] [place] [address]- 6110 Feb, [facility] [place] [facility] [address] [id number] [place] [address]- 7706 Feb, [facility] [place] [facility] [address] [id number] [place] [address]- 0405 Dec, [facility] [place] [facility] [address] [id number] [place] [address]- 3287 Dec, [facility] [place] [facility] [address] [id number] [place] [address]- 6189 Nov, [facility] [place] [facility] [address] [id number] [place] [address]- 6335 14 Nov, 2012 [facility] [place] [facility] [address] [id number] [place] [address]- 6210 Nov, [facility] [place] [facility] [address] [id number] [place] [address]- 9119 17 Oct, 2012 [facility] [place] [facility] [address] [id number] [place] [address]- 3720 Sep, [facility] [place] [facility] [address] [id number] [place] [address]- 0016 06 Sep, 2012 [facility] [address] [id number] [place] [address]- 6462 02 Jul, 2012 [facility] [place] [facility] [address] [id number] [place] [address]- 2691 28 Jun, 2012 [facility] [place] [facility] [address] [id number] [place] [address]- 9294 22 Jun, 2012 [facility] [place] [facility] [address] [id number] [place] [address]- 5626 21 Jun, 2012 [facility] [place] [facility] [address] [id number] [place] [address]- 4124 20 Jun, 2012 [facility] [place] [facility] [address] [id number] [place] [address]- 1320 20 Jun, 2012 [facility] [place] [facility] [address] [id number] [place] [address]- 8033 Jun, [facility] [place] [facility] [address] [id number] [place] [address]- 8957 08 Jun, 2012 [facility] [address] [id number] [place] [address]- 9315 07 Jun, 2012 [facility] [place] [facility] [address] [id number] [place] [address]- 2605 Feb, [facility] [place] [facility] [address] [id number] [place] [address]- 3451 Feb, [facility] [place] [facility] [address] [id number] [place] [address]- 4585 Feb, [facility] [place] [facility] [address] [id number] [place] [address]- 3419 Feb, [facility] [place] [facility] [address] [id number] [place] [address]- 5800 Feb, [facility] [place] [facility] [address] [id number] [place] [address]- 3236 14 Feb, 2012 [facility] [place] [facility] [address] [id number] [place] [address]- 7562 13 Feb, 2012 [facility] [place] [facility] [address] [id number] [place] [address]- 4063 13 Feb, 2012 [facility] [place] [facility] [address] [id number] [place] [address]- 3493 12 Feb, 2012 [facility] [place] [facility] [address] [id number] [place] [address]- 8618 12 Feb, 2012 [facility] [place] [facility] [address] [id number] [place] [address]- 5337 16 Jan, 2012 [facility] [place] [facility] [address] [id number] [place] [address]- 2902 16 Jan, 2012 [facility] [place] [facility] [address] [id number] [place] [address]- 1002 16 Jan, 2012 [facility] [place] [facility] [address] [id number] [place] [address]- 7561 16 Jan, 2012 [facility] [place] [facility] [address] [id number] [place] [address]- 8746 18 Dec, 2011 [facility] [place] [facility] [address] [id number] [place] [address]- 6256 14 Dec, 2011 [facility] [place] [facility] [address] [id number] [place] [address]- 8068 13 Dec, 2011 [facility] [place] [facility] [address] [id number] [place] [address]- 5223 14 Nov, 2011 [facility] [place] [facility] [address] [id number] [place] [address]- 7338 Nov, [facility] [place] [facility] [address] [id number] [place] [address]- 0333 Nov, [facility] [place] [facility] [address] [id number] [place] [address]- 5603 Oct, [facility] [place] [facility] [address] [id number] [place] [address]- 6580 Sep, [facility] [address] [id number] [place] [address]- 8656 Sep, [facility] [place] [facility] [address] [id number] [place] [address]- 4916 August, [facility] [place] [facility] [address] [id number] [place] [address]- 2076 August, [facility] [place] [facility] [address] [id number] [place] [address]- 9096 August, [facility] [place] [facility] [address] [id number] [place] [address]- 5094 Jul, [facility] [place] [facility] [address] [id number] [place] [address]- 2116 30 Jun, 2011 [facility] [place] [facility] [address] [id number] [place] [address]- 2276 Jun, [facility] [place] [facility] [address] [id number] [place] [address]- 9263 Jun, [facility] [place] [facility] [address] [id number] [place] [address]- 2585 16 Jun, 2011 [facility] [place] [facility] [address] [id number] [place] [address]- 4208 14 Jun, 2011 [facility] [place] [facility] [address] [id number] [place] [address]- 7476 May, [facility] [place] [facility] [address] [id number] [place] [address]- 5786 May, [facility] [place] [facility] [address] [id number] [place] [address]- 1366 May, [facility] [place] [facility] [address] [id number] [place] [address]- 7766 17 May, 2011 [facility] [place] [facility] [address] [id number] [place] [address]- 4336 Apr, [facility] [place] [facility] [address] [id number] [place] [address]- 7919 11 Apr, 2011 [facility] [place] [facility] [address] [id number] [place] [address]- 1015 Apr, [facility] [place] [facility] [address] [id number] [place] [address]- 3610 Apr, [facility] [place] [facility] [address] [id number] [place] [address]- 8458 Mar, [facility] [place] [facility] [address] [id number] [place] [address]- 9491 Mar, [facility] [place] [facility] [address] [id number] [place] [address]- 1313 Feb, [facility] [place] [facility] [address] [id number] [place] [address]- 3738 Feb, [facility] [place] [facility] [address] [id number] [place] [address]- 5380 Feb, [facility] [place] [facility] [address] [id number] [place] [address]- 8561 15 Feb, 2011 [facility] [place] [facility] [address] [id number] [place] [address]- 9086 Feb, [facility] [place] [facility] [address] [facility] [id number] [place] [address]- 9167 Feb, [facility] [place] [facility] [address] [id number] [place] [address]- 6467 Jan, [facility] [place] [facility] [address] [id number], [place] [address]- 0211 Jan, [facility] [place] [facility] [address] [id number] [place] [address]- 0654 Jan, [facility] [place] [facility] [address] [id number] [place] [address]- 1183 Jan, [facility] [place] [facility] [address] [id number], [place] [address]- 6845 13 Jan, 2011 [facility] [address] [facility] [id number], [place] [address]- 7906 Jan, [facility] [address] [id number] [address] 7685 Mar, [facility] [address] [address]- 6242 Mar, [facility] [address] 5445 Mar, [facility] [address] [facility] [id number] 3416 Mar, [facility] [address] [address] Feb, IMMUNIZATIONS No Known Immunizations SOCIAL HISTORY Never Assessed REASON FOR VISIT Skin c/o; skin irritation around belly button, itchy/tender x4-5 days - VIRA Lozano PLAN OF CARE Activity Details Follow Up prn Reason: VITAL SIGNS Height 70 in 2018-03-07 Weight 246.2 lbs 2018-03-07 Temperature 98.6 degrees Fahrenheit 2018-03-07 Heart Rate 72 bpm 2018-03-07 Respiratory Rate 18 2018-03-07 BMI 35.32 kg/m2 2018-03-07 Blood pressure systolic 126 mmHg 2018-03-07 Blood pressure diastolic 78 mmHg 2018-03-07 MEDICATIONS Medication Instructions Dosage Frequency Start Date End Date Duration Status Flonase Allergy Relief 50 MCG/ACT Nasally twice per day 1 spray in each nostril Jun, Active ProAir HFA 108 (90 Base) MCG/ACT Inhalation every 4 hrs 2 puffs as needed 4h Jun, Not-Taking Acyclovir 400 mg Orally Twice a day 1 tablet 12h May, Active Promethazine-Codeine 6.25-10 MG/5ML Orally every 6 hrs 5 ml as needed 6h Jun, Not-Taking Toviaz 8 MG Orally Once a day 1 tablet 24h 30 Active Omeprazole 20 mg Orally 2 times a day 1 capsule 12h 30 Active Viagra 100 MG Orally Once a day 1 tablet as needed 24h Nov, Active Nystatin-Triamcinolone 356454-2.1 UNIT/GM Externally Twice a day 1 application to affected area 12h Feb, Feb, 7 days Active Cyclobenzaprine HCl 10 MG Orally Three times a day 1 tablet as needed 8h 5 days Not-Taking Toprol XL 100 MG Orally Once a day 1 tablet 24h Active Claritin 10 mg Orally Once a day 1 tablet 24h Active Lipitor 80 MG Orally Once a day 1 tablet 24h Active Daina 0.5-0.4 MG Orally Once a day 1 capsule 24h Active RESULTS No Results PROCEDURES No Known procedures INSTRUCTIONS MEDICATIONS ADMINISTERED No Known Medications MEDICAL (GENERAL) HISTORY Type Description Date Medical History hypertension Medical History hx of hepatitis C; finished treatment 2011 Medical History hyperlipidemia Medical History enlarged prostate Surgical History cholecystectomy by Dr. Mckenzie 2005 Surgical History otolaryngologic surgery-parathyroid removed by Dr. Cuenca 2005 Surgical History orthopaedic surgery d/t [facility] Hospitalization History Hospitalization for surgery only
--- OUTSIDE RECORDS SUMMARY | 2018-04-11 12:36 | XMS REPORT ---
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 Name Role Phone SIRIA PETERSON Unavailable PROBLEMS Type Condition ICD9-CM Code GIQ08-LI Code Onset Dates Condition Status SNOMED Code Problem Benign prostatic hyperplasia with lower urinary tract symptoms N40.1 Active 435811629 Problem Seasonal allergic rhinitis, unspecified allergic rhinitis trigger J30.2 Active 770291153 Problem Overactive bladder N32.81 Active 134718187 Problem Hypertension, benign I10 Active 10604123 Problem Low back pain M54.5 Active [id number] ALLERGIES No Information ENCOUNTERS Encounter Location Date Diagnosis [facility] [address] [address] Feb, Benign prostatic hyperplasia with lower urinary tract symptoms N40.1 ; Frequency of micturition R35.0 ; History of hepatitis Z86.19 and Colon cancer screening Z12.11 [facility] [id number] [place] [address] 97745- 9349 Feb, [facility] [id number] [place] [address] 03426- 7480 Feb, Benign prostatic hyperplasia with lower urinary tract symptoms N40.1 ; Frequency of micturition R35.0 ; History of hepatitis Z86.19 and Colon cancer screening Z12.11 [facility] [id number] [place] [address]014 -9134 Feb, Skin rash R21 [facility] WALK IN [place] [id number] [place] [address]481 -2408 Nov, Spasm of muscle of lower back M62.830 [facility] WALK IN [facility] [address] [place] [id number] [place] [address] -[address]25 Sep, Right facial swelling R22.0 [place] [address] [address]- [address]108 14 Jun, 2017 Hypertension, benign I10 [place] [address] [address]- 9037 09 Jun, 2017 Hypertension, benign I10 and Low back pain M54.5 [place] [address] [address]67- 6519 18 Jan, 2017 Encounter for immunization Z23 [facility] [address] [address] Jun, Otitis media with effusion, right H65.91 [facility] WALK IN [place] [address] [address] Jun, Seasonal allergic rhinitis, unspecified allergic rhinitis trigger J30.2 [facility] WALK IN [address] [address] 17 Jun, 2016 [place] [address] [address]- [address] 15 Jun, 2016 Hypertension, benign I10 [facility] WALK IN [address] [address] Jun, Acute suppurative otitis media of right ear without spontaneous rupture of tympanic membrane, recurrence not specified H66.001 [place] [address] [address]- 9093 May, Hypertension, benign I10 [place] [address] 30623- 6488 Mar, Ganglion cyst of finger of right hand M67.441 [facility] WALK IN [address] [address] 09 Mar, 2016 Sore throat J02.9 ; Fever in other diseases R50.81 and Bronchitis J40 [place] [address] 0[address]34- 3392 Feb, [facility] [address] [address] Feb, [facility] [id number] [place] [address] 33669- 4433 Feb, [facility] [address], [place] [address] 97[address] Feb, [facility] [id number] [place] [address] 63633- 6573 Feb, [facility] [id number] [place] [address] 62465- 2131 13 Dec, 2015 Ganglion cyst of finger of right hand M67.441 [facility] [address], [place] [address] 07 Dec, 2015 [place] [address] [id number] [address] 02 Dec Encounter for immunization Z23 and Laceration of left hand, initial encounter S61.412A [facility] [id number] [place] [address]62 [address]0160 Nov, Ganglion cyst of finger of right hand M67.441 [facility] [address] [address] 0[address] Nov, [facility] [id number] [place] [address] 36130- 0195 Oct, [facility] [address], [place] [address] Jun, Sinusitis J32.9 [facility] [id number] [place] [address] 26071- 6113 Apr, [facility] [address], [place] [address] 5349 Apr, [facility] [id number] [place] [address] 95013- 9461 Apr, [facility] [id number] [place] [address] 20820- 5072 Apr, [facility] [address] [place] [id number] [place] [address] 73112- 4078 Apr, [facility] [id number] [place] [address] 03796- 9038 Mar, [facility] [address] [address] Mar, Hypertension, benign I10 [facility] [id number] [place] [address] 99796- 2514 Mar, Hypertension, benign I10 [facility] [id number] [place] [address] 83337 -6242 Mar, Bronchitis J40 and Cough R05 [facility] [id number] [place] [address] 18330- 8409 Jan, Insect bite (nonvenomous), left knee, initial encounter S80.262A [facility] [id number] [place] [address] 59959- 7752 Jan, HTN (hypertension) 401.9 [facility] [id number] [place] [address] 79096- 9860 Nov, HTN (hypertension) 401.9 [facility] [id number] [place] [address] 18934- 6861 Nov, HTN (hypertension) 401.9 [facility] [id number] [place] [address] 66691- 3272 Oct, [facility] [id number] [place] [id number] Oct, Dental examination V72.2 [facility] [id number] [place] [address] 16352- 6493 Jul, [facility] [address] [place] [address]- 9614 13 Jul, 2014 [facility] [place] [facility] [address] [id number] [place] [address]- 3339 Jun, [facility] [place] [facility] [address] [id number] [place] [address]- 6583 Jun, [facility] [place] [facility] [address] [id number] [place] [address]- 5165 Apr, [facility] [place] [facility] [address] [id number] [place] [address]- 5319 Apr, [facility] [place] [facility] [address] [id number] [place] [address]- 6232 Apr, [facility] [place] [facility] [address] [id number] [place] [address]- 6629 Apr, [facility] [place] [facility] [address] [id number] [place] [address]- 0079 Apr, [facility] [place] [facility] [address] [id number] [place] [address]- 5132 Apr, [facility] [place] [facility] [address] [id number] [place] [address]- 3639 Apr, [facility] [place] [facility] [address] [id number] [place] [address]- 8131 Apr, [facility] [place] [facility] [address] [id number] [place] [address]- 2022 Apr, [facility] [place] [facility] [address] [id number] [place] [address]- 5164 Oct, [facility] [place] [facility] [address] [id number] [place] [address]- 9644 Oct, [facility] [place] [facility] [address] [id number] [place] [address]- 9820 Sep, [facility] [place] [facility] [address] [id number] [place] [address]- 9304 Sep, [facility] [place] [facility] [address] [id number] [place] [address]- 7859 Sep, [facility] [place] [facility] [address] [id number] [place] [address]- 2591 Sep, [facility] [place] [facility] [address] [id number] [place] [address]- 7001 Sep, [facility] [place] [facility] [address] [id number] [place] [address]- 1823 Sep, [facility] [place] [facility] [address] [id number] [place] [address]- 9716 Jul, [facility] [place] [facility] [address] [id number] [place] [address]- 1126 Jul, [facility] [place] [facility] [address] [id number] [place] [address]- 8752 Jul, [facility] [place] [facility] [address] [id number] [place] [address]- 7117 Jul, [facility] [place] [facility] [address] [id number] [place] [address]- 0151 Jul, [facility] [place] [facility] [address] [id number] [place] [address]- 9141 Jul, [facility] [place] [facility] [address] [id number] [place] [address]- 2477 Jul, [facility] [place] [facility] [address] [id number] [place] [address]- 7841 Jul, [facility] [place] [facility] [address] [id number] [place] [address]- 3570 Jun, [facility] [place] [facility] [address] [id number] [place] [address]- 2188 Jun, [facility] [place] [facility] [address] [id number] [place] [address]- 8000 Jun, [facility] [place] [facility] [address] [id number] [place] [address]- 2381 Jun, [facility] [place] [facility] [address] [id number] [place] [address]- 8214 Jun, [facility] [place] [facility] [address] [id number] [place] [address]- 6746 Jun, [facility] [place] [facility] [address] [id number] [place] [address]- 9699 Jun, [facility] [place] [facility] [address] [id number] [place] [address]- 4626 Jun, [facility] [place] [facility] [address] [id number] [place] [address]- 8706 Jun, [facility] [place] [facility] [address] [id number] [place] [address]- 7232 Jun, [facility] [place] [facility] [address] [id number] [place] [address]- 3681 Apr, [facility] [place] [facility] [address] [id number] [place] [address]- 2699 Apr, [facility] [place] [facility] [address] [id number] [place] [address]- 7906 Apr, [facility] [place] [facility] [address] [id number] [place] [address]- 6806 Apr, [facility] [place] [facility] [address] [id number] [place] [address]- 3448 Apr, [facility] [place] [facility] [address] [id number] [place] [address]- 3934 Apr, [facility] [place] [facility] [address] [id number] [place] [address]- 9489 Mar, [facility] [place] [facility] [address] [id number] [place] [address]- 6442 Mar, [facility] [place] [facility] [address] [id number] [place] [address]- 7685 Mar, [facility] [place] [facility] [address] [id number] [place] [address]- 2294 Mar, [facility] [address] [id number] [place] [address]- 0564 Mar, [facility] [address] [id number] [place] [address]- 8284 Mar, [facility] [address] [id number] [place] [address]- 2726 Mar, [facility] [address] [id number] [place] [address]- 2473 Mar, [facility] [address] [id number] [place] [address]- 2661 Mar, [facility] [address] [id number] [place] [address]- 6596 Feb, [facility] [address] [id number] [place] [address]- 4742 Feb, [facility] [address] [id number] [place] [address]- 7914 Dec, [facility] [address] [id number] [place] [address]- 7591 Dec, [facility] [address] [id number] [place] [address]- 5162 20 Nov, 2012 [facility] [address] [id number] [place] [address]- 6513 14 Nov, 2012 [facility] [address] [id number] [place] [address]- 1013 Nov, [facility] [place] [facility] [address] [id number] [place] [address]- 4952 17 Oct, 2012 [facility] [place] [facility] [address] [id number] [place] [address]- 3184 Sep, [facility] [address] [id number] [place] [address]- 4644 Sep, [facility] [place] [facility] [address] [id number] [place] [address]- 4108 02 Jul, 2012 [facility] [place] [facility] [address] [id number] [place] [address]- 5348 28 Jun, 2012 [facility] [place] [facility] [address] [id number] [place] [address]- 5573 22 Jun, 2012 [facility] [place] [facility] [address] [id number] [place] [address]- 1343 21 Jun, 2012 [facility] [address] [id number] [place] [address]- 4937 20 Jun, 2012 [facility] [place] [facility] [address] [id number] [place] [address]- 0333 20 Jun, 2012 [facility] [address] [id number] [place] [address]- 4490 Jun, [facility] [address] [id number] [place] [address]- 6803 08 Jun, 2012 [facility] [place] [facility] [address] [id number] [place] [address]- 3006 07 Jun, 2012 [facility] [place] [facility] [address] [id number] [place] [address]- 3881 23 Feb, 2012 [facility] [place] [facility] [address] [id number] [place] [address]- 7924 23 Feb, 2012 [facility] [place] [facility] [address] [id number] [place] [address]- 8992 20 Feb, 2012 [facility] [place] [facility] [address] [id number] [place] [address]- 5723 Feb, [facility] [place] [facility] [address] [id number] [place] [address]- 4286 19 Feb, 2012 [facility] [place] [facility] [address] [id number] [place] [address]449 14 Feb, 2012 [facility] [place] [facility] [address] [id number], [place] [address]- 9341 13 Feb, 2012 [facility] [place] [facility] [address] [id number] [place] [address]- 9996 13 Feb, 2012 [facility] [place] [facility] [address] [id number] [place] [address]- 9050 12 Feb, 2012 [facility] [place] [facility] [address] [id number] [place] [address]- 3629 12 Feb, 2012 [facility] [place] [facility] [address] [id number] [place] [address]- 7071 16 Jan, 2012 [facility] [place] [facility] [address] [id number] [place] [address]- 5139 16 Jan, 2012 [facility] [place] [facility] [address] [id number] [place] [address]- 0367 16 Jan, 2012 [facility] [place] [facility] [address] [id number] [place] [address]- 6358 16 Jan, 2012 [facility] [place] [facility] [address] [id number] [place] [address]- 7390 18 Dec, 2011 [facility] [place] [facility] [address] [id number] [place] [address]- 8350 14 Dec, 2011 [facility] [place] [facility] [address] [id number] [place] [address]- 8387 13 Dec, 2011 [facility] [place] [facility] [address] [id number], [place] [address]- 8135 14 Nov, 2011 [facility] [place] [facility] [address] [id number], [place] [address]- 3812 Nov, [facility] [place] [facility] [address] [id number] [place] [address]- 2751 Nov, [facility] [place] [facility] [address] [id number] [place] [address]- 9191 Oct, [facility] [place] [facility] [address] [id number] [place] [address]- 6186 Sep, [facility] [place] [facility] [address] [id number] [place] [address]- 7185 11 Sep, 2011 [facility] [place] [facility] [address] [id number] [place] [address]- 2081 24 Aug, 2011 [facility] [place] [facility] [address] [id number] [place] [address]- 3246 August, [facility] [place] [facility] [address] [id number] [place] [address]- 7683 August, [facility] [place] [facility] [address] [id number] [place] [address]- 3339 Jul, [facility] [place] [facility] [address] [id number] [place] [address]- 9827 30 Jun, 2011 [facility] [place] [facility] [address] [id number] [place] [address]- 7144 Jun, [facility] [place] [facility] [address] [id number] [place] [address]- 6578 19 Jun, 2011 [facility] [place] [facility] [address] [id number] [place] [address]- 6304 16 Jun, 2011 [facility] [place] [facility] [address] [id number] [place] [address]- 3887 14 Jun, 2011 [facility] [place] [facility] [address] [id number] [place] [address]- 2933 May, [facility] [place] [facility] [address] [id number] [place] [address]- 0894 May, [facility] [place] [facility] [address] [id number] [place] [address]- 9658 May, [facility] [place] [facility] [address] [id number] [place] [address]- 7797 17 May, 2011 [facility] [place] [facility] [address] [id number] [place] [address]- 6069 Apr, [facility] [place] [facility] [address] [id number] [place] [address]- 2814 Apr, [facility] [place] [facility] [address] [id number] [place] [address]- 2639 Apr, [facility] [place] [facility] [address] [id number] [place] [address]- 9885 Apr, [facility] [place] [facility] [address] [id number] [place]186 Mar, [facility] [place] [facility] [address] [id number] [place] [address]- 8851 Mar, [facility] [place] [facility] [address] [id number] [place] [address]- 3116 Feb, [facility] [place] [facility] [address] [id number] [place] [address]- 7660 Feb, [facility] [place] [facility] [address] [id number] [place] [address]- 4172 Feb, [facility] [place] [facility] [address] [id number], [place] [address]- 9552 Feb, [facility] [place] [facility] [address] [id number], [place] [address]- 1715 Feb, [facility] [place] [facility] [address] [id number] [place] [address]- 9135 Feb, [facility] [place] [facility] [address] [id number], [place] [address]- 7854 Jan, [facility] [place] [facility] [address] [id number], [place] [address]- 2236 Jan, [facility] [place] [facility] [address] [id number], [place] [address]- 1502 Jan, [facility] [place] [facility] [address] [id number], [place] [address]- 2894 Jan, [facility] [place] [facility] [address] [id number], [place] [address]- 5001 Jan, [facility] [place] [facility] [address] [facility] [id number] [place] [address] Jan, [facility] [address] [facility] [id number], [place] [address]- 2955 Mar, [facility] [address] [facility] [id number][place]- 4987 Mar, [facility] [address] [facility] [id number][place] 6981 Mar, [facility] [address] [facility] [id number][place] [address] Mar, [facility] [address] [facility] [id number], [place] [address] Feb, IMMUNIZATIONS No Known Immunizations SOCIAL HISTORY Never Assessed REASON FOR VISIT Lab (walk-in) PLAN OF CARE Activity Details Pending Test LIPID PANEL Pending Test CMP Pending Test CBC Pending Test PSA Pending Test TSH Pending Test HEP C RNA PCR QUANT VITAL SIGNS MEDICATIONS Unknown Medications RESULTS No Results PROCEDURES Procedure Date Ordered Result Body Site LIPID PANEL Mar 21, 2018 COMPREHEN METABOLIC PANEL Mar 21, 2018 VENIPUNCT, ROUTINE* Mar 21, 2018 ASSAY OF PSA, TOTAL Mar 21, 2018 COMPLETE CBC W/AUTO DIFF WBC Mar 21, 2018 HEPATITIS C, RNA, QUANT Mar 21, 2018 ASSAY THYROID STIM HORMONE Mar 21, 2018 INSTRUCTIONS MEDICATIONS ADMINISTERED No Known Medications MEDICAL [...]
--- OUTSIDE RECORDS SUMMARY | 2018-04-11 12:36 | XMS REPORT ---
Author Author DUY SIMMONS [facility] Address [address] [place] [address] Care Team Providers Care Engineering Design Manager Name Role Phone DUY SIMMONS Unavailable PROBLEMS Type Condition ICD9-CM Code [id number] Code Onset Dates Condition Status SNOMED Code Problem Seasonal allergic rhinitis, unspecified allergic rhinitis trigger J30.2 Active 558054951 Problem Hypertension, benign I10 Active 24330494 Problem Low back pain M54.5 Active 756372026 Problem Overactive bladder N32.81 Active 291984116 ALLERGIES No Known Allergies ENCOUNTERS Encounter Location Date Diagnosis [facility] [address] [address] Nov, Spasm of muscle of lower back M62.830 [facility] [address] [address] Sep, Right facial swelling R22.0 [place] [address] [address] Jun, Hypertension, benign I10 [place] [address] [address] Jun, Hypertension, benign I10 and Low back pain M54.5 [place] [id number] [place] [id number] [place] [address] Jan, Encounter for immunization Z23 [facility] [address] [address] Jun, Otitis media with effusion, right H65.91 [facility] [address] [address] Jun, Seasonal allergic rhinitis, unspecified allergic rhinitis trigger J30.2 [facility] [id number] [place] [address] 17 Jun, 2016 [facility] [address] [address] 15 Jun, 2016 Hypertension, benign I10 [facility] [address] [address] 12 Jun, 2016 Acute suppurative otitis media of right ear without spontaneous rupture of tympanic membrane, recurrence not specified H66.001 [facility] [address] [address] May, Hypertension, benign I10 [place] [address] [address] Mar, Ganglion cyst of finger of right hand M67.441 [facility] [address] [address] Mar, Sore throat J02.9 ; Fever in other diseases R50.81 and Bronchitis J40 [place] [address] [address] Feb, [place] [address] [address] Feb, [place] [address] [place] [id number] [place] [address] Feb, [place] [address] [place] [id number] [place] [address]226- [address]596 Feb, [facility] [address] [address] 18 Feb, 2016 [place] [address] [address] 13 Dec, 2015 Ganglion cyst of finger of right hand M67.441 [facility] [id number] [place] [address] 07 Dec, [address] [id number] [place] [address] Dec Encounter for immunization Z23 and Laceration of left hand, initial encounter S61.412A [facility] [id number] [place] [address] Nov, Ganglion cyst of finger of right hand M67.441 [facility] [id number] [place] [address]296[address]167 Nov, [facility] [id number] [place] [address]607- [address] Oct, [facility] [id number] [place] [address] Jun, Sinusitis J32.9 [facility] [id number] [place] [address]602- 8200 Apr, [facility] [id number] [place] [address]4436- 6410 Apr, [facility] [id number] [place] [address] 63922- 8845 Apr, [facility] [id number] [place] [address] 70181- 7882 Apr, [facility] [id number] [place] [address]05- 9032 Apr, [facility] [id number] [place] [address] 67041- 1871 Mar, [facility] [id number] [place] [address] 19154- 2376 Mar, Hypertension, benign I10 [facility] [address] [id number] [place] [address]78- 2671 Mar, Hypertension, benign I10 [facility] [id number] [place] [address] Mar, Bronchitis J40 and Cough R05 [place] [address] [address] Jan, Insect bite (nonvenomous), left knee, initial encounter S80.262A [facility] [address] [address] Jan, HTN (hypertension) 401.9 [facility] [id number] [place] [address]60- 1423 Nov, HTN (hypertension) 401.9 [facility] [id number] [place] [address] 56040- 7303 Nov, HTN (hypertension) 401.9 [facility] [id number] [place] [address] 81732- 2485 Oct, [facility] [id number] [id number] Oct, Dental examination V72.2 [facility] [address] [address] Jul, [facility] [address] [address] Jul, [facility] [address] [address] 53[address] Jun, [facility] [address] [address]- 49[address] Jun, [facility] [address] [address]- 9208 Apr, [facility] [address] [address]- 3491 Apr, [facility] [address] [address]- 4094 Apr, [facility] [address] [address]- 3920 Apr, [facility] [address] [id number] [place] [address] 7[address] Apr, [facility] [address] [id number] [place] [address]- 1021 Apr, [facility] [place] [facility] [address] [id number] [place] [address]- 9593 Apr, [facility] [address] [id number] [place] [address]- 7887 Apr, [facility] [place] [facility] [address] [id number] [place] [address]- 1963 Apr, [facility] [address] [id number] [place] [address]- 5544 Oct, [facility] [place] [facility] [address] [id number] [place] [address]- 3698 Oct, [facility] [address] [id number] [place] [address]- 2416 Sep, [facility] [place] [facility] [address] [id number] [place] [address]- 5548 Sep, [facility] [place] [facility] [address] [id number] [place] [address]- 0145 Sep, [facility] [address] [id number] [place] [address]- 3022 Sep, [facility] [place] [facility] [address] [id number] [place] [address]- 3552 Sep, [facility] [place] [facility] [address] [id number] [place] [address]- 3990 Sep, [facility] [place] [facility] [address] [id number] [place] [address]- 1201 Jul, [facility] [place] [facility] [address] [id number] [place] [address]- 5273 Jul, [facility] [place] [facility] [address] [id number] [place] [address]- 0467 Jul, [facility] [place] [facility] [address] [id number] [place] [address]- 0180 Jul, [facility] [place] [facility] [address] [id number] [place] [address]- 2431 Jul, [facility] [place] [facility] [address] [id number] [place] [address]- 5341 Jul, [facility] [place] [facility] [address] [id number] [place] [address]- 5624 Jul, [facility] [place] [facility] [address] [id number] [place] [address]- 5433 Jul, [facility] [place] [facility] [address] [id number] [place] [address]- 1526 Jun, [facility] [place] [facility] [address] [id number] [place] [address]- 3609 Jun, [facility] [place] [facility] [address] [id number] [place] [address]- 3694 Jun, [facility] [place] [facility] [address] [id number] [place] [address]- 8145 Jun, [facility] [place] [facility] [address] [id number] [place] [address]- 0488 Jun, [facility] [place] [facility] [address] [id number] [place] [address]- 6665 Jun, [facility] [place] [facility] [address] [id number] [place] [address]- 1592 Jun, [facility] [place] [facility] [address] [id number] [place] [address]- 0165 Jun, [facility] [place] [facility] [address] [id number] [place] [address]- 2819 Jun, [facility] [place] [facility] [address] [id number] [place] [address]- 2255 Jun, [facility] [place] [facility] [address] [id number] [address]- 4020 Apr, [facility] [address] [id number] [place] [address]- 8456 Apr, [facility] [place] [facility] [address] [id number] [place] [address]- 5508 Apr, [facility] [place] [facility] [address] [id number] [place] [address]- 8027 Apr, [facility] [place] [facility] [address] [id number] [place] [address]- 6473 Apr, [facility] [place] [facility] [address] [id number] [place] [address]- 3997 Apr, [facility] [place] [facility] [address] [id number] [place] [address]- 3059 Mar, [facility] [address] [id number] [place] [address]- 9522 Mar, [facility] [place] [facility] [address] [id number] [place] [address]- 3209 Mar, [facility] [place] [facility] [address] [id number] [place] [address]- 0282 Mar, [facility] [place] [facility] [address] [id number] [place] [address]- 5881 Mar, [facility] [place] [facility] [address] [id number] [place] [address]- 7418 Mar, [facility] [place] [facility] [address] [id number] [place] [address]- 2873 Mar, [facility] [place] [facility] [address] [id number] [place] [address]- 3176 Mar, [facility] [place] [facility] [address] [id number] [place] [address]- 9294 Mar, [facility] [place] [facility] [address] [id number] [place] [address]- 1079 13 Feb, 2013 [facility] [place] [facility] [address] [id number] [place] [address]- 5856 13 Feb, 2013 [facility] [address] [id number] [place] [address]- 4223 13 Dec, 2012 [facility] [place] [facility] [address] [id number] [place] [address] 2546 Dec, [facility] [address] [id number] [place] [address]- 3893 Nov, [facility] [address] [id number] [place] [address]- 4214 Nov, [facility] [address] [id number] [place] [address]- 7997 Nov, [facility] [address] [id number] [place] [address]- 7056 Oct, [facility] [address] [id number] [place] [address]- 4742 Sep, [facility] [address] [id number] [place] [address]- 0898 Sep, [facility] [address] [id number] [place] [address]- 4204 Jul, [facility] [address] [id number] [place] [address]- 3729 Jun, [facility] [address] [id number] [place] [address]- 3897 Jun, [facility] [address] [id number] [place] [address]- 0743 Jun, [facility] [place] [facility] [address] [id number] [place] [address]- 4039 Jun, [facility] [place] [facility] [address] [id number] [place] [address] 2546 Jun, [facility] [place] [facility] [address] [id number] [place] [address]- 5115 Jun, [facility] [place] [facility] [address] [id number] [place] [address]- 0306 08 Jun, 2012 [facility] [place] [facility] [address] [id number] [place] [address]- 6625 07 Jun, 2012 [facility] [place] [facility] [address] [id number] [place] [address]- 2495 23 Feb, 2012 [facility] [place] [facility] [address] [id number] [place] [address]- 3377 23 Feb, 2012 [facility] [place] [facility] [address] [id number] [place] [address]- 9330 20 Feb, 2012 [facility] [place] [facility] [address] [id number] [place] [address]- 9108 19 Feb, 2012 [facility] [place] [facility] [address] [id number] [place] [address]- 5930 19 Feb, 2012 [facility] [place] [facility] [address] [id number] [place] [address]- 9836 14 Feb, 2012 [facility] [place] [facility] [address] [id number] [place] [address]- 0877 13 Feb, 2012 [facility] [place] [facility] [address] [id number], [place] [address]- 9781 13 Feb, 2012 [facility] [place] [facility] [address] [id number], [place] [address]- 1136 Feb, [facility] [place] [facility] [address] [id number], [place] [address]- 8172 12 Feb, 2012 [facility] [place] [facility] [address] [id number] [place] [address]- 3054 16 Jan, 2012 [facility] [place] [facility] [address] [id number], [place] [address]- 7088 16 Jan, 2012 [facility] [place] [facility] [address] [id number] [place] [address]- 4699 16 Jan, 2012 [facility] [place] [facility] [address] [id number] [place] [address]- 4554 16 Jan, 2012 [facility] [place] [facility] [address] [id number] [place] [address]- 6921 18 Dec, 2011 [facility] [place] [facility] [address] [id number] [place] [address]- 6256 14 Dec, 2011 [facility] [place] [facility] [address] [id number] [place] [address]- 2356 13 Dec, 2011 [facility] [place] [facility] [address] [id number] [place] [address]- 9331 14 Nov, 2011 [facility] [place] [facility] [address] [id number] [place] [address]- 2595 07 Nov, 2011 [facility] [place] [facility] [address] [id number] [place] [address]- 2806 Nov, [facility] [place] [facility] [address] [id number] [place] [address]- 2521 Oct, [facility] [place] [facility] [address] [id number] [place] [address]- 9213 Sep, [facility] [place] [facility] [address] [id number] [place] [address]- 1481 Sep, [facility] [place] [facility] [address] [id number] [place] [address]- 8860 24 Aug, 2011 [facility] [place] [facility] [address] [id number] [place] [address]- 6458 August, [facility] [place] [facility] [address] [id number] [place] [address]- 8678 August, [facility] [place] [facility] [address] [id number] [place] [address]- 7016 Jul, [facility] [place] [facility] [address] [id number] [place] [address]- 3927 30 Jun, 2011 [facility] [place] [facility] [address] [id number] [place] [address]- 8646 Jun, [facility] [place] [facility] [address] [id number] [place] [address]- 9610 19 Jun, 2011 [facility] [place] [facility] [address] [id number] [place] [address]- 0066 16 Jun, 2011 [facility] [place] [facility] [address] [id number] [place] [address]- 1156 14 Jun, 2011 [facility] [place] [facility] [address] [id number] [place] [address]- 1056 23 May, 2011 [facility] [place] [facility] [address] [id number] [place] [address]- 9113 May, [facility] [place] [facility] [address] [id number] [place] [address]- 8358 May, [facility] [place] [facility] [address] [id number] [place] [address]- 6259 17 May, 2011 [facility] [place] [facility] [address] [id number] [place] [address]- 3402 Apr, [facility] [place] [facility] [address] [id number] [place] [address]- 9758 Apr, [facility] [place] [facility] [address] [id number] [place] [address]- 8853 Apr, [facility] [place] [facility] [address] [id number] [place] [address]- 3991 Apr, [facility] [place] [facility] [address] [id number] [place] [address]- 3733 Mar, [facility] [place] [facility] [address] [id number] [place] [address]- 7069 Mar, [facility] [place] [facility] [address] [id number] [place] [address]- 7106 Feb, [facility] [place] [facility] [address] [id number] [place] [address]- 8716 Feb, [facility] [place] [facility] [address] [id number], [place] [address]- 6889 Feb, [facility] [address] [facility] [id number], [place] [address]- 9666 Feb, [facility] [address] [facility] [id number], [place] [address] 2546 Feb, [facility] [address], [place] [address]- 2606 Feb, [facility] [address] [facility] [id number], [place] [address]- 0374 Jan, [facility] [address] [facility] [id number], [place] [address]- 9906 Jan, [facility] [id number] [address]876 Jan, [facility] [address] [address] Jan, [facility] [address], [place] [address]- 2781 Jan, [facility] [address], [place] [address]- 3971 Jan, [facility] [address], [place] [address]- 5324 Mar, [facility] [address], [place] [address] 2545 Mar, [facility] [address] [address]- 2542 Mar, [facility] [address] [address] Mar, [facility] [address], [place] [address]- 2547 Feb, IMMUNIZATIONS No Known Immunizations SOCIAL HISTORY Never Assessed REASON FOR VISIT swelling under right eye. was weed eating earlier today et thinks he got something up in his nose. reports his cheek bone on right side of face is sore. [email or web address] PLAN OF CARE Activity Details Follow Up 1 Week, prn Reason:if symptoms worsen or not improving VITAL SIGNS Height 70 in 2017-10-05 Weight 241.4 lbs 2017-10-05 Temperature 98.6 degrees Fahrenheit 2017-10-05 Heart Rate 84 bpm 2017-10-05 Respiratory Rate 18 2017-10-05 BMI 34.63 kg/m2 2017-10-05 Blood pressure systolic 128 mmHg 2017-10-05 Blood pressure diastolic 80 mmHg 2017-10-05 MEDICATIONS Medication Instructions Dosage Frequency Start Date End Date Duration Status Promethazine-Codeine 6.25-10 MG/5ML Orally every 6 hrs 5 ml as needed 6h Jun, Active Viagra 100 MG Orally Once a day 1 tablet as needed 24h Nov, Active Toprol XL 100 MG Orally Once a day 1 tablet 24h Active PredniSONE 20 mg Orally Once a day 2 tablets 24h Sep, Sep, 05 days Active Lipitor 80 MG Orally Once a day 1 tablet 24h Active ProAir HFA 108 (90 Base) MCG/ACT Inhalation every 4 hrs 2 puffs as needed 4h Jun, Active Daina 0.5-0.4 MG Orally Once a day 1 capsule 24h Active Toviaz 8 MG Orally Once a day 1 tablet 24h 30 Active Omeprazole 20 mg Orally 2 times a day 1 capsule 12h 30 Active Flonase Allergy Relief 50 MCG/ACT Nasally twice per day 1 spray in each nostril Jun, Active Claritin 10 mg Orally Once a day 1 tablet 24h Active Acyclovir 400 mg Orally Twice a day 1 tablet 12h May, Active RESULTS No Results PROCEDURES No Known [...]
--- OUTSIDE RECORDS SUMMARY | 2018-04-11 12:36 | XMS REPORT ---
Author Author ANMOL KATZ [facility] IN [facility] Address [address] [place] [address] Care Team Providers Care Electronics Engineering Manager Name Role Phone ANMOL KATZ Unavailable PROBLEMS Type Condition ICD9-CM Code [id number] Code Onset Dates Condition Status SNOMED Code Problem Seasonal allergic rhinitis, unspecified allergic rhinitis trigger J30.2 Active 058752496 Problem Hypertension, benign I10 Active 15178704 Problem Low back pain M54.5 Active 751315257 Problem Overactive bladder N32.81 Active 867828479 ALLERGIES No Known Allergies ENCOUNTERS Encounter Location Date Diagnosis [place] [address] [address] Feb, [facility] WALK IN [facility] [address] [place] [id number] [place] [address]66 -2913 Nov, Spasm of muscle of lower back M62.830 [facility] [place] [address] [place] [id number] [place] [address]129 -0342 Sep, Right facial swelling R22.0 [place] [address] [place] [id number] [place] [address] 12318- 0037 Jun, Hypertension, benign I10 [facility] [address] [address]- [address]27 Jun, Hypertension, benign I10 and Low back pain M54.5 [place] [address] 65193- 2356 Jan, Encounter for immunization Z23 [facility] WALK IN [facility] [address] [place] [id number] [place] [address]29 -[address]30 Jun, Otitis media with effusion, right H65.91 [facility] [address] [id number] [place] [address] 05142 -2588 19 Jun, 2016 Seasonal allergic rhinitis, unspecified allergic rhinitis trigger J30.2 [facility] [address] [place] [id number] [place] [address] 58766 -0224 17 Jun, 2016 [facility] [address] [place] [id number] [place] [address] 96242- 4242 15 Jun, 2016 Hypertension, benign I10 [facility] [address] [place] [id number] [place] [address] 84604 -9700 12 Jun, 2016 Acute suppurative otitis media of right ear without spontaneous rupture of tympanic membrane, recurrence not specified H66.001 [place] [address] 86366- 8790 03 May, 2016 Hypertension, benign I10 [place] [address] [place] [id number] [place] [address] 69666- 1039 Mar, Ganglion cyst of finger of right hand M67.441 [facility]ARE [address] [place] [id number] [place] [address] 97866 -7045 Mar, Sore throat J02.9 ; Fever in other diseases R50.81 and Bronchitis J40 [place] [address] [place] [id number] [place] [address] 44912- 4832 Feb, [place] [address] [place] [id number] [place] [address] 22295- 7416 Feb, [place] [address] [place] [id number] [place] [address] 04595- 6040 Feb, [place] [address] [place] [id number] [place] [address] 56371- 4990 Feb, [place] [address] [place] [id number] [place] [address] 17421- 9256 Feb, [facility] [address] [place] [id number] [place] [address] 29523- 3947 13 Dec, 2015 Ganglion cyst of finger of right hand M67.441 [facility] [address] [id number] [address] Dec, [facility] [address] [id number] [place] [address] Dec Encounter for immunization Z23 and Laceration of left hand, initial encounter S61.412A [facility] [address] [address] Nov, Ganglion cyst of finger of right hand M67.441 [facility] [address] [address] 7381 Nov, [facility] [address] [place] [id number] [place] [address] 55376- 5830 Oct, [facility] [id number] [place] [address] 43720 -3240 Jun, Sinusitis J32.9 [facility] [address] [place] [id number] [place] [address] 25567- 7111 Apr, [facility] [id number] [place] [address] 30909- 5172 Apr, [facility] [id number] [place] [address] 56655- 0133 Apr, [facility] [address] [address] 1862 Apr, [facility] [address] [place] [address] 61424- 9311 Apr, [facility] [address] [address] 1287 Mar, [facility] [address] [place] [id number] [place] [address] 23336- 0257 Mar, Hypertension, benign I10 [facility] [address], [place] [address] 1023 Mar, Hypertension, benign I10 [facility] [address] [place] [id number] [place] [address] 45532 -0978 Mar, Bronchitis J40 and Cough R05 [facility] [address] 83132- 7994 Jan, Insect bite (nonvenomous), left knee, initial encounter S80.262A [facility] [address] 0[address]32- 7345 Jan, HTN (hypertension) 401.9 [facility] [address] 35312- 8800 Nov, HTN (hypertension) 401.9 [facility] [address] 65166- 9263 Nov, HTN (hypertension) 401.9 [facility] [address] 91718- 0904 Oct, [facility] [place] [facility] [address] [id number] Oct, Dental examination V72.2 [facility] [address] 11480- 3392 Jul, [facility] [address] [place] [id number] [place] [address] 73506- 3931 Jul, [facility] [address] [place] [id number] [place] [address] 45204- 8163 Jun, [facility] [address] [place] [id number] [place] [address] 86869- 2519 Jun, [facility] [address] 88668- 5590 Apr, [facility] [address] [place] [id number] [place] [address] 75424- 8682 Apr, [facility] [address] [place] [id number] [place] [address] 81809- 8351 Apr, [facility] [place] [facility] [address] [id number] [place] [address]- 8709 Apr, [facility] [place] [facility] [address] [id number] [place] [address]- 0966 Apr, [facility] [place] [facility] [address] [id number] [place] [address]- 6163 Apr, [facility] [place] [facility] [address] [id number] [place] [address]- 6412 Apr, [facility] [place] [facility] [address] [id number] [place] [address]- 1345 Apr, [facility] [place] [facility] [address] [id number] [place] [address]- 4026 Apr, [facility] [place] [facility] [address] [id number] [place] [address]- 0276 Oct, [facility] [place] [facility] [address] [id number] [place] [address]- 5210 Oct, [facility] [place] [facility] [address] [id number] [place] [address]- 0621 Sep, [facility] [place] [facility] [address] [id number] [place] [address]- 9526 Sep, [facility] [place] [facility] [address] [id number] [place] [address]- 3598 Sep, [facility] [place] [facility] [address] [id number] [place] [address]- 1899 Sep, [facility] [place] [facility] [address] [id number] [place] [address]- 8061 Sep, [facility] [place] [facility] [address] [id number] [place] [address]- 6295 Sep, [facility] [place] [facility] [address] [id number] [place] [address]- 5977 Jul, [facility] [place] [facility] [address] [id number] [place] [address]- 8794 Jul, [facility] [place] [facility] [address] [id number] [place] [address]- 8234 Jul, [facility] [place] [facility] [address] [id number] [place] [address]- 7656 Jul, [facility] [place] [facility] [address] [id number] [place] [address]- 9049 Jul, [facility] [place] [facility] [address] [id number] [place] [address]- 7425 Jul, [facility] [place] [facility] [address] [id number] [place] [address]- 7496 Jul, [facility] [place] [facility] [address] [id number] [place] [address]- 9960 Jul, [facility] [place] [facility] [address] [id number] [place] [address]- 5992 Jun, [facility] [place] [facility] [address] [id number] [place] [address]- 6394 Jun, [facility] [place] [facility] [address] [id number] [place] [address]- 9217 Jun, [facility] [place] [facility] [address] [id number] [place] [address]- 1963 Jun, [facility] [place] [facility] [address] [id number] [place] [address]- 2048 Jun, [facility] [place] [facility] [address] [id number] [place] [address]- 9058 Jun, [facility] [place] [facility] [address] [id number] [place] [address]- 9250 Jun, [facility] [place] [facility] [address] [id number] [place] [address]- 1175 Jun, [facility] [place] [facility] [address] [id number] [place] [address]- 4054 Jun, [facility] [place] [facility] [address] [id number] [place] [address]- 9702 Jun, [facility] [address] [id number] [place] [address]- 0751 Apr, [facility] [place] [facility] [address] [id number] [place] [address]- 3779 Apr, [facility] [address] [id number] [place] [address]- 2528 Apr, [facility] [place] [facility] [address] [id number] [place] [address]- 3693 Apr, [facility] [address] [id number] [place] [address]- 7140 Apr, [facility] [place] [facility] [address] [id number] [place] [address]- 2729 Apr, [facility] [address] [id number] [place] [address]- 3688 Mar, [facility] [place] [facility] [address] [id number] [place] [address]- 9980 Mar, [facility] [place] [facility] [address] [id number] [place] [address]- 4290 Mar, [facility] [place] [facility] [address] [id number] [place] [address]- 7931 Mar, [facility] [place] [facility] [address] [id number] [place] [address]- 8706 Mar, [facility] [place] [facility] [address] [id number] [place] [address]- 3646 Mar, [facility] [place] [facility] [address] [id number] [place] [address]- 8718 Mar, [facility] [place] [facility] [address] [id number] [place] 2829 Mar, [facility] [place] [facility] [address] [id number] [place] [address]- 1626 Mar, [facility] [place] [facility] [address] [id number] [place] [address]- 8027 Feb, [facility] [address] [id number] [place] [address]- 5609 Feb, [facility] [address] [id number] [place] [address]- 6789 Dec, [facility] [address] [id number] [place] [address]- 2985 Dec, [facility] [address] [id number] [place] [address]- 5243 Nov, [facility] [address] [id number] [place] [address]- 4411 Nov, [facility] [address] [id number] [place] [address]- 2167 Nov, [facility] [address] [id number] [place] [address]- 1918 Oct, [facility] [address] [id number] [place] [address]- 6166 Sep, [facility] [address] [id number] [place] [address]- 9096 Sep, [facility] [address] [id number] [place] [address]- 3021 Jul, [facility] [address] [id number] [place] [address]- 0118 Jun, [facility] [place] [facility] [address] [id number] [place] [address]- 2563 Jun, [facility] [place] [facility] [address] [id number] [place] [address]- 1828 Jun, [facility] [place] [facility] [address] [id number] [place] [address]- 7073 Jun, [facility] [address] [id number] [place] [address]- 5974 20 Jun, 2012 [facility] [place] [facility] [address] [id number] [place] [address]- 7522 19 Jun, 2012 [facility] [place] [facility] [address] [id number] [place] [address]- 4991 08 Jun, 2012 [facility] [place] [facility] [address] [id number] [place] [address]- 6516 Jun, [facility] [place] [facility] [address] [id number] [place] [address]- 9399 Feb, [facility] [place] [facility] [address] [id number] [place] [address]- 7730 23 Feb, 2012 [facility] [place] [facility] [address] [id number] [place] [address]- 0249 Feb, [facility] [place] [facility] [address] [id number] [place] [address]- 4753 Feb, [facility] [place] [facility] [address] [id number] [place] [address]- 6344 Feb, [facility] [place] [facility] [address] [id number] [place] [address]- 4216 14 Feb, 2012 [facility] [place] [facility] [address] [id number] [place] [address]- 1572 Feb, [facility] [place] [facility] [address] [id number] [address]- 3695 13 Feb, 2012 [facility] [place] [facility] [address] [id number], [place] [address]- 6263 12 Feb, 2012 [facility] [place] [facility] [address] [id number] [place] [address]- 0234 Feb, [facility] [place] [facility] [address] [id number] [place] [address]- 3304 16 Jan, 2012 [facility] [place] [facility] [address] [id number] [place] [address]- 2081 16 Jan, 2012 [facility] [place] [facility] [address] [id number] [place] [address]- 2546 16 Jan, 2012 [facility] [address] [id number] [place] [address]- 5406 16 Jan, 2012 [facility] [place] [facility] [address] [id number] [place] [address]- 2546 18 Dec, 2011 [facility] [address] [id number] [place] [address]- 8066 14 Dec, 2011 [facility] [place] [facility] [address] [id number] [place] [address]- 3564 13 Dec, 2011 [facility] [address] [id number] [place] [address]- 6816 14 Nov, 2011 [facility] [address] [id number] [place] [address]- 4266 Nov, [facility] [address] [id number] [place] [address]- 2686 Nov, [facility] [address] [id number] [place] [address]- 8672 Oct, [facility] [address] [id number] [place] [address]- 9826 Sep, [facility] [address] [id number] [place] [address]- 4126 Sep, [facility] [place] [facility] [address] [id number] [place] [address]- 2546 August, [facility] [address] [id number] [place] [address]- 2546 August, [facility] [place] [facility] [address] [id number] [place] [address]- 1806 August, [facility] [place] [facility] [address] [id number] [place] [address]- 2546 Jul, [facility] [place] [facility] [address] [id number] [place] [address]- 3926 Jun, [facility] [address] [id number] [place] [address]- 9821 23 Jun, 2011 [facility] [place] [facility] [address] [id number] [place] [address]- 6466 19 Jun, 2011 [facility] [place] [facility] [address] [id number] [place] [address]- 7876 16 Jun, 2011 [facility] [place] [facility] [address] [id number] [place] [address]- 7919 14 Jun, 2011 [facility] [place] [facility] [address] [id number] [place] [address]- 5736 23 May, 2011 [facility] [place] [facility] [address] [id number] [place] [address]- 3916 22 May, 2011 [facility] [place] [facility] [address] [id number] [place] [address]- 9236 20 May, 2011 [facility] [place] [facility] [address] [id number] [place] [address]- 8453 17 May, 2011 [facility] [place] [facility] [address] [id number] [place] [address]- 6204 Apr, [facility] [place] [facility] [address] [id number] [place] [address]- 1261 Apr, [facility] [place] [facility] [address] [id number] [place] [address]- 3104 Apr, [facility] [place] [facility] [address] [id number] [place] [address]- 3446 Apr, [facility] [place] [facility] [address] [id number] [place] [address]- 1936 Mar, [facility] [place] [facility] [address] [id number] [place] [address]- 8016 Mar, [facility] [place] [facility] [address] [id number] [place] [address]- 8926 Feb, [facility] [place] [facility] [address] [id number] [place] [address]- 4546 Feb, [facility] [address] [id number] [place] [address]- 8366 Feb, [facility] [place] [facility] [address] [id number] [place] [address] 2546 15 Feb, 2011 [facility] [address] [facility] [id number] [place] [address] 2546 Feb, [facility] [place] [facility] [address] [id number] [place] [address] 2546 Feb, [facility] [address] [id number] [place] [address]- 6226 Jan, [facility] [address] [facility] [id number] [place] [address]- 1936 Jan, [facility] [address] [facility] [id number] [place] [address]- 2116 Jan, [facility] [address] [facility] [id number] [place] [address]- 2542 Jan, [facility] [address] [facility] [id number] [place] [address]- 8026 Jan, [facility] [address] [facility] [id number] [place] [address]- 2548 Jan, [facility] [address] [facility] [id number] [place] [address] 2546 Mar, [facility] [address] [facility] [id number] [address] 2546 Mar, [facility] [place] [facility] [address] [facility] [id number] [place] [address] 2546 Mar, [facility] [address] [facility] [id number] [place] [address] 2546 Mar, [facility] [address] [facility] [id number], [place] [address] 2545 Feb, IMMUNIZATIONS No Known Immunizations SOCIAL HISTORY Never Assessed REASON FOR VISIT back spasm started last night JStrasserRN PLAN OF CARE Activity Details Follow Up prn Reason: VITAL SIGNS Height 70 in 2017-11-27 Weight 235.0 lbs 2017-11-27 Temperature 97.9 degrees Fahrenheit 2017-11-27 Heart Rate 88 bpm 2017-11-27 Respiratory Rate 22 2017-11-27 BMI 33.72 kg/m2 2017-11-27 Blood pressure systolic 138 mmHg 2017-11-27 Blood pressure diastolic 80 mmHg 2017-11-27 MEDICATIONS Medication Instructions Dosage Frequency Start Date End Date Duration Status Omeprazole 20 mg Orally 2 times a day 1 capsule 12h 30 Active Lipitor 80 MG Orally Once a day 1 tablet 24h Active Toviaz 8 MG Orally Once a day 1 tablet 24h 30 Active Viagra 100 MG Orally Once a day 1 tablet as needed 24h Nov, Active Acyclovir 400 mg Orally Twice a day 1 tablet 12h May, Active Promethazine-Codeine 6.25-10 MG/5ML Orally every 6 hrs 5 ml as needed 6h Jun, Active Daina 0.5-0.4 MG Orally Once a day 1 capsule 24h Active Cyclobenzaprine HCl 10 MG Orally Three times a day 1 tablet as needed 8h 5 days Active Claritin 10 mg Orally Once a day 1 tablet 24h Active Toprol XL 100 MG Orally Once a day 1 tablet 24h Active Flonase Allergy Relief 50 MCG/ACT Nasally twice per day 1 spray in each nostril Jun, Active ProAir HFA 108 (90 Base) MCG/ACT Inhalation every 4 hrs 2 puffs as needed 4h Jun, Active RESULTS No Results PROCEDURES No Known [...]
--- OUTSIDE RECORDS SUMMARY | 2018-04-11 12:37 | XMS REPORT ---
Author Author SIRIA PETERSON Organization [facility] Address [address] [place] [address] Care Team Providers Care Can Sealer Name Role Phone SIRIA PETERSON Unavailable PROBLEMS Type Condition ICD9-CM Code HSK81-IR Code Onset Dates Condition Status SNOMED Code Problem Seasonal allergic rhinitis, unspecified allergic rhinitis trigger J30.2 Active 022067619 Problem Hypertension, benign I10 Active 46026582 Problem Low back pain M54.5 Active 044604525 Problem Overactive bladder N32.81 Active [id number] ALLERGIES No Information ENCOUNTERS Encounter Location Date Diagnosis [facility] [address] [address] Sep, Right facial swelling R22.0 [facility] [address] [address] Jun, Hypertension, benign I10 [facility] [address] [address] Jun, Hypertension, benign I10 and Low back pain M54.5 [facility] [id number] [place] [address]- 8927 Jan, Encounter for immunization Z23 [facility] [address] [address] Jun, Otitis media with effusion, right H65.91 [facility] [address] [address] Jun, Seasonal allergic rhinitis, unspecified allergic rhinitis trigger J30.2 [facility] [id number] [place] [address] 17 Jun, 2016 [facility] [address] [address] Jun, Hypertension, benign I10 [facility] [id number] [place] [address] Jun, Acute suppurative otitis media of right ear without spontaneous rupture of tympanic membrane, recurrence not specified H66.001 [facility] [id number] [place] [address] 37663- 5708 May, Hypertension, benign I10 [facility] [id number] [place] [address] 17143- 5827 Mar, Ganglion cyst of finger of right hand M67.441 [facility] [place] [id number] [place] [address] Mar, Sore throat J02.9 ; Fever in other diseases R50.81 and Bronchitis J40 [place] [id number] [place] [address] 64557- 8976 Feb, [facility] [id number] [place] [address] 86939- 1899 Feb, [place] [id number] [place] [address] 19808- 1837 Feb, [place] [id number] [place] [address] 42952- 2781 Feb, [place] [id number] [place] [address] 36822- 7690 Feb, [place] [id number] [place] [address] 83623- 3747 13 Dec, 2015 Ganglion cyst of finger of right hand M67.441 [facility] [place] [id number] [place] [address] 51573 -8792 07 Dec, 2015 [facility] [address] [id number] [place] [address] 02 Dec Encounter for immunization Z23 and Laceration of left hand, initial encounter S61.412A [facility] [id number] [place] [address]47 -5965 Nov, Ganglion cyst of finger of right hand M67.441 [facility] [id number] [place] [address] 27161- 3803 Nov, [facility] [id number] [place] [address] 54689- 2625 Oct, [facility] [address] [address] Jun, Sinusitis J32.9 [facility] [id number] [place] [address] 23990- 3265 Apr, [facility] [address] [address]- 4860 Apr, [facility] [address] [address]- 4116 Apr, [facility] [id number] [place] [address] 75130- 9809 Apr, [facility] [id number] [place] [address] 42600- 0119 Apr, [facility] [id number] [place] [address] 38184- 5342 Mar, [facility] [id number] [place] [address] 60834- 9967 Mar, Hypertension, benign I10 [facility] [id number] [place] [address] 77716- 9400 Mar, Hypertension, benign I10 [facility] [id number] [place] [address] 14398 -2571 Mar, Bronchitis J40 and Cough R05 [facility] [id number] [place] [address] 35110- 8634 Jan, Insect bite (nonvenomous), left knee, initial encounter S80.262A [place] [address] [id number], [place] [address] 07 Jan, 2015 HTN (hypertension) 401.9 [facility] [address] [id number] [place] [address] 3416 Nov, HTN (hypertension) 401.9 [facility] [address] [facility] [id number] [place] [address] Nov, HTN (hypertension) 401.9 [facility] [address] [id number] [place] [address]- 2964 Oct, [facility] [address] [id number] [id number] Oct, Dental examination V72.2 [facility] [id number] [place] [address]- 59[address] Jul, [facility] [address] [address] 10[address] Jul, [facility] [address] [address] 0761 Jun, [facility] [id number] [place] [address] 1356 Jun, [facility] [address] [address] 7085 Apr, [facility] [id number] [address]- 3102 Apr, [facility] [id number] [address]- 2680 Apr, [facility] [id number] 1142 Apr, [facility] [address] [facility] [id number] [place] [id number] 24[address] Apr, [facility] [address] [id number] 0320 Apr, [facility] [place] [facility] [address] [id number] [place] [address]- 9887 Apr, [facility] [place] [facility] [address] [id number] [place] [address]- 4419 Apr, [facility] [place] [facility] [address] [id number] [place] [address]- 5505 Apr, [facility] [place] [facility] [address] [id number] [place] [address]- 2561 Oct, [facility] [place] [facility] [address] [id number] [place] [address]- 5375 Oct, [facility] [place] [facility] [address] [id number] [place] [address]- 8240 Sep, [facility] [place] [facility] [address] [id number] [place] [address]- 9570 Sep, [facility] [place] [facility] [address] [id number] [place] [address]- 2305 Sep, [facility] [place] [facility] [address] [id number] [place] [address]- 8118 Sep, [facility] [place] [facility] [address] [id number] [place] [address]- 3174 Sep, [facility] [place] [facility] [address] [id number] [place] [address]- 7111 Sep, [facility] [place] [facility] [address] [id number], [place] [address]- 4901 Jul, [facility] [place] [facility] [address] [id number] [place] [address]- 9267 Jul, [facility] [place] [facility] [address] [id number] [place] [address]- 7216 Jul, [facility] [place] [facility] [address] [id number], [place] [address]- 3084 Jul, [facility] [place] [facility] [address] [id number], [place] [address]- 0066 Jul, [facility] [place] [facility] [address] [id number] [place] [address]- 1814 Jul, [facility] [place] [facility] [address] [id number] [place] [address]- 1601 Jul, [facility] [place] [facility] [address] [id number] [place] [address]- 1384 Jul, [facility] [place] [facility] [address] [id number] [place] [address]- 4728 Jun, [facility] [place] [facility] [address] [id number] [place] [address]- 2439 Jun, [facility] [place] [facility] [address] [id number] [place] [address]- 9666 Jun, [facility] [place] [facility] [address] [id number] [place] [address]- 3049 Jun, [facility] [place] [facility] [address] [id number] [place] [address]- 3282 Jun, [facility] [place] [facility] [address] [id number] [place] [address]- 7620 Jun, [facility] [place] [facility] [address] [id number] [place] [address]- 7509 Jun, [facility] [place] [facility] [address] [id number] [place] [address]- 9240 Jun, [facility] [place] [facility] [address] [id number] [place] [address]- 2921 Jun, [facility] [place] [facility] [address] [id number] [place] [address]- 9937 Jun, [facility] [place] [facility] [address] [id number] [place] [address]- 3396 Apr, [facility] [place] [facility] [address] [facility] [id number] [place] [address]- 8488 Apr, [facility] [place] [facility] [address] [id number] [place] [address]- 5825 08 Apr, 2013 [facility] [address] [id number] [place] [address]- 6052 Apr, [facility] [place] [facility] [address] [id number] [place] [address]- 3716 Apr, [facility] [address] [id number] [place] [address]- 1908 Apr, [facility] [place] [facility] [address] [id number] [place] [address]- 2598 Mar, [facility] [place] [facility] [address] [id number] [place] [address]- 0354 Mar, [facility] [place] [facility] [address] [id number] [place] [address]- 4361 Mar, [facility] [place] [facility] [address] [id number] [place] [address]- 9263 Mar, [facility] [place] [facility] [address] [id number] [place] [address]- 4088 Mar, [facility] [place] [facility] [address] [id number] [place] [address]- 6517 Mar, [facility] [place] [facility] [address] [id number] [place] [address]- 8537 Mar, [facility] [place] [facility] [address] [id number] [place] [address]- 3332 11 Mar, 2013 [facility] [place] [facility] [address] [id number] [place] [address]- 1513 11 Mar, 2013 [facility] [place] [facility] [address] [id number] [place] [address]- 6920 13 Feb, 2013 [facility] [place] [facility] [address] [id number] [place] [address]- 7196 13 Feb, 2013 [facility] [place] [facility] [address] [id number] [place] [address]- 6676 13 Dec, 2012 [facility] [place] [facility] [address] [id number] [place] [address]- 9042 12 Dec, 2012 [facility] [place] [facility] [address] [id number] [place] [address]- 4412 Nov, [facility] [place] [facility] [address] [id number] [place] [address]- 8626 Nov, [facility] [place] [facility] [address] [id number] [place] [address]- 7992 Nov, [facility] [place] [facility] [address] [id number] [place] [address]- 4883 Oct, [facility] [place] [facility] [address] [id number] [place] [address]- 5235 Sep, [facility] [place] [facility] [address] [id number] [place] [address]- 6135 Sep, [facility] [place] [facility] [address] [id number] [place] [address]- 6126 Jul, [facility] [place] [facility] [address] [id number] [place] [address]- 8847 Jun, [facility] [place] [facility] [address] [id number] [place] [address]- 7320 Jun, [facility] [place] [facility] [address] [id number] [place] [address]- 1228 Jun, [facility] [place] [facility] [address] [id number], [place] [address]- 5671 Jun, [facility] [place] [facility] [address] [id number] [place] [address]- 0840 Jun, [facility] [place] [facility] [address] [id number] [place] [address]- 3633 19 Jun, 2012 [facility] [place] [facility] [address] [id number] [place] [address]- 5376 08 Jun, 2012 [facility] [place] [facility] [address] [id number] [place] [address]- 7891 07 Jun, 2012 [facility] [place] [facility] [address] [id number] [place] [address]- 3274 23 Feb, 2012 [facility] [place] [facility] [address] [id number] [place] [address]- 8039 23 Feb, 2012 [facility] [place] [facility] [address] [id number] [place] [address]- 6121 20 Feb, 2012 [facility] [place] [facility] [address] [id number] [place] [address]- 9475 19 Feb, 2012 [facility] [place] [facility] [address] [id number] [place] [address]- 2340 19 Feb, 2012 [facility] [place] [facility] [address] [id number] [place] [address]- 5052 14 Feb, 2012 [facility] [place] [facility] [address] [id number] [place] [address]- 3987 13 Feb, 2012 [facility] [place] [facility] [address] [id number] [place] [address]- 2222 13 Feb, 2012 [facility] [place] [facility] [address] [id number] [place] [address]- 2249 12 Feb, 2012 [facility] [place] [facility] [address] [id number] [place] [address]- 3929 12 Feb, 2012 [facility] [place] [facility] [address] [id number] [place] [address]- 0043 16 Jan, 2012 [facility] [place] [facility] [address] [id number], [place] [address]- 6803 16 Jan, 2012 [facility] [place] [facility] [address] [id number] [place] [address]- 9894 16 Jan, 2012 [facility] [place] [facility] [address] [id number] [place] [address]- 8096 16 Jan, 2012 [facility] [place] [facility] [address] [id number], [place] [address]- 7145 18 Dec, 2011 [facility] [place] [facility] [address] [id number] [place] [address]- 9684 14 Dec, 2011 [facility] [place] [facility] [address] [id number] [place] [address]- 1524 13 Dec, 2011 [facility] [place] [facility] [address] [id number] [place] [address]- 9506 14 Nov, 2011 [facility] [place] [facility] [address] [id number] [place] [address]- 7616 Nov, [facility] [place] [facility] [address] [id number] [place] [address]- 1753 Nov, [facility] [place] [facility] [address] [id number] [place] [address]- 3591 Oct, [facility] [place] [facility] [address] [id number] [place] [address]- 7260 Sep, [facility] [place] [facility] [address] [id number] [place] [address]- 6894 Sep, [facility] [place] [facility] [address] [id number] [place] [address]- 4506 August, [facility] [place] [facility] [address] [id number] [place] [address]- 0470 August, [facility] [place] [facility] [address] [id number] [place] [address]- 5623 August, [facility] [place] [facility] [address] [id number] [place] [address]- 9255 Jul, [facility] [place] [facility] [address] [id number] [place] [address]- 1594 Jun, [facility] [place] [facility] [address] [id number] [place] [address]- 9292 Jun, [facility] [place] [facility] [address] [id number] [place] [address]- 4653 Jun, [facility] [place] [facility] [address] [id number] [place] [address]- 9056 16 Jun, 2011 [facility] [address] [id number] [place] [address]- 1287 14 Jun, 2011 [facility] [place] [facility] [address] [id number] [place] [address]- 1726 23 May, 2011 [facility] [place] [facility] [address] [id number] [place] [address]- 2596 May, [facility] [place] [facility] [address] [id number] [place] [address]- 8241 20 May, 2011 [facility] [place] [facility] [address] [id number] [place] [address]- 2530 17 May, 2011 [facility] [place] [facility] [address] [id number] [place] [address]- 0483 Apr, [facility] [address] [facility] [id number] [place] [address]- 9496 Apr, [facility] [place] [facility] [address] [id number] [place] [address]- 9284 Apr, [facility] [address] [facility] [id number] [place] [address]- 2181 Apr, [facility] [place] [facility] [address] [facility] [id number] [place] [address]- 8009 Mar, [facility] [place] [facility] [address] [id number] [place] [address]- 0657 Mar, [facility] [place] [facility] [address] [id number] [place] [address]- 7789 Feb, [facility] [place] [facility] [address] [id number] [place] [address]- 7981 Feb, [facility] [place] [facility] [address] [id number] [place] [address]- 5151 18 Feb, 2011 [facility] [place] [facility] [address] [facility] [id number] [place] [address]- 8153 15 Feb, 2011 [facility] [place] [facility] [address] [address]- 8671 Feb, [facility] [address] 9320 Feb, [facility] [address] [address]- 9286 Jan, [facility] [address] 1171 Jan, [facility] [address] [address]- 6515 Jan, [facility] [id number] [place] [address] 750543- 0093 Jan, [facility] [address] [address]- 4518 Jan, [facility] [id number] [place] [address] 873[address]- 9573 Jan, [facility] [address] [address]- 0969 Mar, [facility] [address], [place] [address]- 4946 Mar, [facility] [address] [address]- 9067 Mar, [facility] [address] [address]- 1875 Mar, [facility] [id number] [address]- 1307 Feb, IMMUNIZATIONS No Known Immunizations SOCIAL HISTORY Never Assessed REASON FOR VISIT Lab (walk-in) PLAN OF CARE VITAL SIGNS MEDICATIONS No Known Medications RESULTS No Results PROCEDURES Procedure Date Ordered Result Body Site LIPID PANEL July 10, 2017 COMPREHEN METABOLIC PANEL July 10, 2017 VENIPUNCT, ROUTINE* July 10, 2017 COMPLETE CBC W/AUTO DIFF WBC July 10, 2017 INSTRUCTIONS MEDICATIONS ADMINISTERED No Known Medications MEDICAL [...]
--- OUTSIDE RECORDS SUMMARY | 2018-04-11 12:37 | XMS REPORT ---
Author Author SIRIA PETERSON Organization [facility] Address [address] [place] [address] Care Team Providers Care Cutter Hand Name Role Phone SIRIA PETERSON Unavailable PROBLEMS Type Condition ICD9-CM Code IVX01-AV Code Onset Dates Condition Status SNOMED Code Problem Seasonal allergic rhinitis, unspecified allergic rhinitis trigger J30.2 Active 397862095 Problem Hypertension, benign I10 Active 24126583 Problem Low back pain M54.5 Active 620816181 Problem Overactive bladder N32.81 Active 097662732 ALLERGIES No Known Allergies ENCOUNTERS Encounter Location Date Diagnosis [facility] [address] [address] Sep, Right facial swelling R22.0 [facility] [id number] [place] [address]879- 2766 Jun, Hypertension, benign I10 [facility] [address] [address] Jun, Hypertension, benign I10 and Low back pain M54.5 [facility] [id number] [place] [address] 94739- 9448 Jan, Encounter for immunization Z23 [facility] [address] [address] Jun, Otitis media with effusion, right H65.91 [facility] [address] [address] Jun, Seasonal allergic rhinitis, unspecified allergic rhinitis trigger J30.2 [facility] [id number] [place] [address] -[address]12 17 Jun, 2016 [facility] [address] [address] Jun, Hypertension, benign I10 [facility] [id number] [place] [address]29 [address] Jun, Acute suppurative otitis media of right ear without spontaneous rupture of tympanic membrane, recurrence not specified H66.001 [facility] [id number] [place] [address] 63234- 4760 May, Hypertension, benign I10 [place] [id number] [place] [address] 13700- 6383 Mar, Ganglion cyst of finger of right hand M67.441 [facility] [place] [id number] [place] [address]77 Mar, Sore throat J02.9 ; Fever in other diseases R50.81 and Bronchitis J40 [place] [id number] [place] [address] 51545- 4727 Feb, [place] [id number] [place] [address] 30174- 4721 Feb, [place] [id number] [place] [address] 10691- 9379 Feb, [place] [id number] [place] [address] 08674- 7623 Feb, [place] [id number] [place] [address] 97538- 8069 Feb, [place] [id number] [place] [address] 69190- 5641 13 Dec, 2015 Ganglion cyst of finger of right hand M67.441 [facility] [place] [id number] [place] [address]265 [address]5244 07 Dec, 2015 [facility] [address] [id number] [place] [address] 02 Dec Encounter for immunization Z23 and Laceration of left hand, initial encounter S61.412A [facility] [id number] [place] [address] 07716 -9636 Nov, Ganglion cyst of finger of right hand M67.441 [facility] [id number] [place] [address] 76285- 4359 Nov, [facility] [id number] [place] [address] 95934- 3152 Oct, [facility] [address] [address] Jun, Sinusitis J32.9 [facility] [address] [address]25- 8786 Apr, [facility] [address] 43855- 0085 Apr, [facility] [address] 17264- 0588 Apr, [facility] [id number] [place] [address] 71775- 6634 Apr, [facility] [id number] [place] [address] 59331- 5998 Apr, [facility] [id number] [place] [address] 81558- 9319 Mar, [facility] [id number] [place] [address] 32473- 1541 Mar, Hypertension, benign I10 [facility] [id number] [place] [address] 64320- 1888 Mar, Hypertension, benign I10 [facility] [address] 71247 [address]87 Mar, Bronchitis J40 and Cough R05 [facility] [id number] [place] [address] 50802- 3883 Jan, Insect bite (nonvenomous), left knee, initial encounter S80.262A [facility] [address] [id number] [place] [address] 9051 07 Jan, 2015 HTN (hypertension) 401.9 [facility] [address] [id number] [place] 2509 Nov, HTN (hypertension) 401.9 [facility] [address] [facility] [id number] [place] [address] Nov, HTN (hypertension) 401.9 [facility] [address] [id number] [place] [address]- 5602 Oct, [facility] [address] [id number] [id number] Oct, Dental examination V72.2 [facility] [address] [address] 1584 Jul, [facility] [address] [address] 3407 Jul, [facility] [address] [address]- 6805 Jun, [facility] [address] [address]- 3634 Jun, [facility] [address] [address]- 5880 Apr, [facility] [id number] [address]- 2695 Apr, [facility] [id number] [address] 9922 Apr, [facility] [address] [facility] [id number] [place] 7956 Apr, [facility] [address] [facility] [id number] [place] [address]- 6952 Apr, [facility] [id number] 8487 Apr, [facility] [place] [facility] [address] [id number] [place] [address]- 0685 Apr, [facility] [place] [facility] [address] [id number] [place] [address]- 9211 Apr, [facility] [place] [facility] [address] [id number] [place] [address]- 4969 Apr, [facility] [place] [facility] [address] [id number] [place] [address]- 9349 Oct, [facility] [place] [facility] [address] [id number] [place] [address]- 7544 Oct, [facility] [place] [facility] [address] [id number] [place] [address]- 9552 Sep, [facility] [place] [facility] [address] [id number] [place] [address]- 9693 Sep, [facility] [place] [facility] [address] [id number] [place] [address]- 6235 Sep, [facility] [place] [facility] [address] [id number] [place] [address]- 7431 Sep, [facility] [place] [facility] [address] [id number], [place] [address]- 2414 Sep, [facility] [place] [facility] [address] [id number], [place] [address]- 3956 Sep, [facility] [place] [facility] [address] [id number], [place] [address]- 1639 Jul, [facility] [place] [facility] [address] [id number] [place] [address]- 8448 Jul, [facility] [place] [facility] [address] [id number] [place] [address]- 3135 Jul, [facility] [place] [facility] [address] [id number], [place] [address]- 8853 Jul, [facility] [place] [facility] [address] [id number], [place] [address]- 4781 Jul, [facility] [place] [facility] [address] [id number] [place] [address]- 0188 Jul, [facility] [place] [facility] [address] [id number] [place] [address]- 6111 Jul, [facility] [place] [facility] [address] [id number] [place] [address]- 8554 Jul, [facility] [place] [facility] [address] [id number] [place] [address]- 3978 Jun, [facility] [place] [facility] [address] [id number] [place] [address]- 8493 Jun, [facility] [place] [facility] [address] [id number] [place] [address]- 0222 Jun, [facility] [place] [facility] [address] [id number] [place] [address]- 5088 Jun, [facility] [place] [facility] [address] [id number] [place] [address]- 0459 Jun, [facility] [place] [facility] [address] [id number] [place] [address]- 7960 Jun, [facility] [place] [facility] [address] [facility] [id number] [place] [address]- 4132 Jun, [facility] [place] [facility] [address] [id number] [place] [address]- 1188 Jun, [facility] [place] [facility] [address] [id number] [place] [address]- 6138 Jun, [facility] [place] [facility] [address] [id number] [place] [address]- 3726 Jun, [facility] [place] [facility] [address] [id number] [place] [address]- 1396 Apr, [facility] [place] [facility] [address] [id number] [place] [address]- 0545 Apr, [facility] [place] [facility] [address] [id number] [place] [address]- 1916 08 Apr, 2013 [facility] [place] [facility] [address] [id number] [place] [address]- 9744 Apr, [facility] [place] [facility] [address] [id number] [place] [address]- 4171 Apr, [facility] [place] [facility] [address] [id number] [place] [address]- 0073 Apr, [facility] [place] [facility] [address] [id number] [place] [address]- 4595 Mar, [facility] [place] [facility] [address] [id number] [place] [address]- 5591 Mar, [facility] [place] [facility] [address] [id number] [place] [address]- 6465 Mar, [facility] [place] [facility] [address] [id number] [place] [address]- 3677 Mar, [facility] [place] [facility] [address] [id number] [place] [address]- 9916 Mar, [facility] [place] [facility] [address] [id number] [place] [address]- 5225 Mar, [facility] [place] [facility] [address] [id number] [place] [address]- 4277 Mar, [facility] [place] [facility] [address] [id number] [place] [address]- 7220 Mar, [facility] [place] [facility] [address] [id number] [place] [address]- 6483 Mar, [facility] [place] [facility] [address] [id number] [place] [address]- 7955 13 Feb, 2013 [facility] [place] [facility] [address] [id number] [place] [address]- 3782 13 Feb, 2013 [facility] [place] [facility] [address] [id number] [place] [address]- 6515 Dec, [facility] [address] [id number] [place] [address]- 9893 Dec, [facility] [place] [facility] [address] [id number] [place] [address]- 4266 Nov, [facility] [place] [facility] [address] [id number] [place] [address]- 9678 Nov, [facility] [place] [facility] [address] [id number] [place] [address]- 9155 Nov, [facility] [address] [id number] [place] [address]- 1247 Oct, [facility] [place] [facility] [address] [id number] [place] [address]- 5251 Sep, [facility] [place] [facility] [address] [id number] [place] [address]- 2795 Sep, [facility] [place] [facility] [address] [id number] [place] [address]- 4214 Jul, [facility] [place] [facility] [address] [id number] [place] [address]- 8787 Jun, [facility] [place] [facility] [address] [id number] [place] [address]- 1561 Jun, [facility] [place] [facility] [address] [id number] [place] [address]- 5309 Jun, [facility] [place] [facility] [address] [id number], [place] [address]- 3544 Jun, [facility] [place] [facility] [address] [id number] [place] [address]- 6923 Jun, [facility] [place] [facility] [address] [id number] [place] [address]- 0590 19 Jun, 2012 [facility] [place] [facility] [address] [id number] [place] [address]- 6436 08 Jun, 2012 [facility] [place] [facility] [address] [id number] [place] [address]- 9441 07 Jun, 2012 [facility] [place] [facility] [address] [id number] [place] [address]- 0510 23 Feb, 2012 [facility] [place] [facility] [address] [id number] [place] [address]- 1875 23 Feb, 2012 [facility] [place] [facility] [address] [id number] [place] [address]- 4335 20 Feb, 2012 [facility] [place] [facility] [address] [id number] [place] [address]- 5538 19 Feb, 2012 [facility] [place] [facility] [address] [id number] [place] [address]- 3224 19 Feb, 2012 [facility] [place] [facility] [address] [id number] [place] [address]- 9291 14 Feb, 2012 [facility] [place] [facility] [address] [id number] [place] [address]- 6954 13 Feb, 2012 [facility] [place] [facility] [address] [id number] [place] [address]- 9671 13 Feb, 2012 [facility] [place] [facility] [address] [id number] [place] [address]- 0263 12 Feb, 2012 [facility] [place] [facility] [address] [facility] [id number] [place] [address]- 6550 12 Feb, 2012 [facility] [place] [facility] [address] [id number] [place] [address]- 8411 16 Jan, 2012 [facility] [place] [facility] [address] [id number], [place] [address]- 8968 16 Jan, 2012 [facility] [place] [facility] [address] [id number] [place] [address]- 6852 16 Jan, 2012 [facility] [place] [facility] [address] [id number] [place] [address]- 8606 16 Jan, 2012 [facility] [place] [facility] [address] [id number], [place] [address]- 6202 18 Dec, 2011 [facility] [place] [facility] [address] [id number] [place] [address]- 7061 14 Dec, 2011 [facility] [place] [facility] [address] [id number] [place] [address]- 6858 13 Dec, 2011 [facility] [place] [facility] [address] [id number] [place] [address]- 2166 14 Nov, 2011 [facility] [place] [facility] [address] [id number] [place] [address] 2546 Nov, [facility] [address] [id number] [place] [address]- 0331 Nov, [facility] [place] [facility] [address] [id number] [place] [address]- 7054 Oct, [facility] [address] [id number] [place] [address]- 4807 Sep, [facility] [address] [id number] [place] [address]- 8205 Sep, [facility] [place] [facility] [address] [id number] [place] [address]- 1302 August, [facility] [address] [id number] [place] [address]- 4124 August, [facility] [place] [facility] [address] [id number] [place] [address]- 3077 August, [facility] [place] [facility] [address] [id number] [place] [address]- 3466 Jul, [facility] [place] [facility] [address] [id number] [place] [address]- 5405 Jun, [facility] [place] [facility] [address] [id number] [place] [address]- 7086 Jun, [facility] [place] [facility] [address] [id number] [place] [address]- 3759 Jun, [facility] [place] [facility] [address] [id number] [place] [address]- 4959 16 Jun, 2011 [facility] [address] [id number] [place] [address]- 4697 14 Jun, 2011 [facility] [place] [facility] [address] [id number] [place] [address]- 6106 23 May, 2011 [facility] [place] [facility] [address] [id number] [place] [address]- 9546 May, [facility] [place] [facility] [address] [id number] [place] [address]- 2082 May, [facility] [place] [facility] [address] [id number] [place] [address]- 7695 May, [facility] [place] [facility] [address] [id number] [place] 7919 Apr, [facility] [address] [facility] [id number] [place] [address]- 8205 Apr, [facility] [place] [facility] [address] [id number] [place] [address]- 0171 Apr, [facility] [address] [facility] [id number] [place] [address]- 6075 Apr, [facility] [place] [facility] [address] [facility] [id number] [place] [address]- 9432 Mar, [facility] [address] [id number] [place] [address]- 8688 Mar, [facility] [place] [facility] [address] [id number] [place] [address]- 4503 Feb, [facility] [place] [facility] [address] [id number] [place] [address]- 1639 Feb, [facility] [place] [facility] [address] [id number] [place] [address]- 1667 18 Feb, 2011 [facility] [place] [facility] [address] [facility] [id number] [place] [address]- 3537 15 Feb, 2011 [facility] [place] [facility] [address] [facility] [id number], [place] [address]- 4849 Feb, [facility] [address] 270[address] Feb, [facility] [address] [facility] [id number], [place] [address]- 5861 Jan, [facility] [address] [facility] [id number], [place] [address]- 4598 Jan, [facility] [address] [facility] [id number] [address] Jan, [facility] [id number] [place] [address] 908288- 2582 Jan, [facility] [address] 1665 Jan, [facility] [address], [place] [address]- 8550 Jan, [facility] [address] 5616 Mar, [facility] [address], [place] [address]- 7424 Mar, [facility] [address] 2724 Mar, [facility] [address] [id number] 8151 Mar, [facility] [address] [id number], [place] [address]- 9352 Feb, IMMUNIZATIONS No Known Immunizations SOCIAL HISTORY Never Assessed REASON FOR VISIT HTN annual check up for med refills and labs. CBrumbackRN PLAN OF CARE VITAL SIGNS Height 70 in 2017-07-05 Weight 239 lbs 2017-07-05 Temperature 99.3 degrees Fahrenheit 2017-07-05 Heart Rate 88 bpm 2017-07-05 Respiratory Rate 20 2017-07-05 BMI 34.29 kg/m2 2017-07-05 Blood pressure systolic 130 mmHg 2017-07-05 Blood pressure diastolic 86 mmHg 2017-07-05 MEDICATIONS Medication Instructions Dosage Frequency Start Date End Date Duration Status Daina 0.5-0.4 MG Orally Once a day 1 capsule 24h Active Viagra 100 MG Orally Once a day 1 tablet as needed 24h 17 Nov, 2015 Active Toviaz 8 MG Orally Once a day 1 tablet 24h 30 Active Flonase Allergy Relief 50 MCG/ACT Nasally twice per day 1 spray in each nostril Jun, 30 day(s) Active Promethazine-Codeine 6.25-10 MG/5ML Orally every 6 hrs 5 ml as needed 6h Jun, Active Toprol XL 100 MG Orally Once a day 1 tablet 24h Active Acyclovir 400 mg Orally Twice a day 1 tablet 12h May, Active Claritin 10 mg Orally Once a day 1 tablet 24h Active Lipitor 80 MG Orally Once a day 1 tablet 24h Active Omeprazole 20 mg Orally 2 times a day 1 capsule 12h 30 Active ProAir HFA 108 (90 Base) MCG/ACT [...]
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
--- OUTSIDE RECORDS SUMMARY | 2018-04-11 12:38 | XMS REPORT ---
Author Author SIRIA PETERSON [facility] Address [address] [place] [address] Care Team Providers Care Hop Strainer Name Role Phone SIRIA PETERSON Unavailable PROBLEMS Type Condition ICD9-CM Code [id number] Code Onset Dates Condition Status SNOMED Code Problem Seasonal allergic rhinitis, unspecified allergic rhinitis trigger J30.2 Active 371738037 Problem Hypertension, benign I10 Active 57446089 Problem Low back pain M54.5 Active 589300977 Problem Overactive bladder N32.81 Active 211464917 ALLERGIES No Information SOCIAL HISTORY Never Assessed PLAN OF CARE VITAL SIGNS MEDICATIONS Medication Instructions Dosage Frequency Start Date [...]
--- OUTSIDE RECORDS SUMMARY | 2018-04-11 12:38 | XMS REPORT ---
Author SIRIA Ramsey Organization [employer] Address Unknown Phone Unavailable Care Team Providers Care Virology Teacher Name Role Phone SIRIA PETERSON CP Unavailable Allergies No Known Allergies Problems Problem Type Condition Code Onset Dates Condition Status Problem Low back pain M54.5 Active Problem Hypertension, benign I10 Active Medications No Known Medications Results No Known Results Summary Purpose [employer] Submission
--- OUTSIDE RECORDS SUMMARY | 2018-04-11 12:38 | XMS REPORT ---
Author Author SIRIA PETERSON [facility] Address [address] [place] [address] Care Team Providers Care Acid Washer Operator Name Role Phone SIRIA PETERSON Unavailable PROBLEMS Type Condition ICD9-CM Code [id number] Code Onset Dates Condition Status SNOMED Code Problem Seasonal allergic rhinitis, unspecified allergic rhinitis trigger J30.2 Active 783192594 Problem Hypertension, benign I10 Active 69684187 Problem Low back pain M54.5 Active 547668011 Problem Overactive bladder N32.81 Active 824661815 ALLERGIES No Known Allergies SOCIAL HISTORY No smoking Hx information available PLAN OF CARE VITAL SIGNS MEDICATIONS Medication Instructions Dosage Frequency Start Date End Date Duration Status Omeprazole 20 mg Orally 2 times a day 1 capsule 12h 30 Active RESULTS No Results PROCEDURES No Known procedures IMMUNIZATIONS No Known Immunizations
--- OUTSIDE RECORDS SUMMARY | 2018-04-11 12:38 | XMS REPORT ---
Author SIRIA Ramsey Organization [employer] Address Unknown Phone Unavailable Care Team Providers Care Respooler Name Role Phone SIRIA PETERSON CP Unavailable Allergies No Known Allergies Problems Problem Type Condition Code Onset Dates Condition Status Problem Low back pain M54.5 Active Problem Overactive bladder N32.81 Active Problem Hypertension, benign I10 Active Medications Medication Code System Code Instructions Start Date End Date Status Dosage Toprol XL [facility] [address]-87 100 MG Orally Once a day 1 tablet Lipitor [facility] [address]-53 80 MG Orally Once a day 1 tablet Results No Known Results Summary Purpose [employer] Submission
--- OUTSIDE RECORDS SUMMARY | 2018-04-11 12:38 | XMS REPORT ---
Author SIRIA Ramsey Organization [employer] Address Unknown Phone Unavailable Care Team Providers Care Automatic Chief Name Role Phone SIRIA PETERSON CP Unavailable Allergies, Adverse Reactions, Alerts Substance Reaction Event Type N.K.D.A. Info Not Available Non Drug Allergy Problems Problem Type Condition Code Onset Dates Condition Status Problem Low back pain M54.5 Active Problem Overactive bladder N32.81 Active Problem Hypertension, benign I10 Active Assessment Ganglion cyst of finger of right hand M67.441 Active Medications Medication Code System Code Instructions Start Date End Date Status Dosage Omeprazole [facility] [address]-31 20 mg Orally 2 times a day 1 capsule Claritin [facility] [address]-39 10 MG Orally Once a day 1 tablet Toprol XL [facility] [address]-76 100 MG Orally Once a day 1 tablet Daina [facility] [address]-91 0.5-0.4 MG Orally Once a day 1 capsule Acyclovir [facility] [address]-45 400 mg orally 3 times a day Apr 20, 2015 one tab Toviaz [facility] [address]-21 8 MG Orally Once a day 1 tablet Viagra [facility] [address]-01 100 MG Orally Once a day Dec 14, 2015 1 tablet as needed Lipitor [facility] [address]-74 80 MG Orally Once a day 1 tablet Procedures Procedure Coding System Code Date Office Visit, Est Pt., Level 3 CPT-4 01251 Dec 14, 2015 Vital Signs Date/Time: Dec 14, 2015 Cardiac Monitoring Heart Rate 64 bpm Weight 237.4 lbs Height 70 in BMI 34.06 Index Blood Pressure Diastolic 86 mmHg Blood Pressure Systolic 140 mmHg Results No Known Results Summary Purpose [employer] Submission
--- OUTSIDE RECORDS SUMMARY | 2018-04-11 12:38 | XMS REPORT ---
Author SIRIA Ramsey Organization [employer] Address Unknown Phone Unavailable Care Team Providers Care Paint Roller Covers Supervisor Name Role Phone SIRIA PETERSON CP Unavailable Allergies No Known Allergies Problems Problem Type Condition Code Onset Dates Condition Status Assessment HTN (hypertension) 401.9 Active Problem Routine general medical examination at health care facility V70.0 Active Problem Scar condition and fibrosis of skin 709.2 Active Problem HTN (hypertension) 401.9 Active Problem Unspecified disorder of skin and subcutaneous tissue 709.9 Active Problem Enlargement of lymph nodes 785.6 Active Problem Lumbago 724.2 Active Problem Other, multiple, and unspecified sites, insect bite, nonvenomous, without mention of infection 919.4 Active Medications Medication Code System Code Instructions Start Date End Date Status Dosage Viagra [facility] [address]-30 100 MG Orally Once a day Nov 29, 2014 Jun 02, 2015 1 tablet as needed Results No Known Results Summary Purpose [employer] Submission
--- OUTSIDE RECORDS SUMMARY | 2018-04-11 12:38 | XMS REPORT ---
Author Author BONNIE DRIVER Organization [facility] Address [address] [place] [address] Care Team Providers Care Slitter Cut Off Operator Name Role Phone BONNIE DRIVER Unavailable PROBLEMS Type Condition ICD9-CM Code [id number] Code Onset Dates Condition Status SNOMED Code Problem Hypertension, benign I10 Active 74830315 Problem Low back pain M54.5 Active 156685522 Assessment Fever in other diseases R50.81 Mar, Active 551532374 Assessment Bronchitis J40 Mar, Active 07437870 Problem Overactive bladder N32.81 Active 986615484 Assessment Sore throat J02.9 Mar, Active 325325378 ALLERGIES Substance Reaction Event Type Date Status N.K.D.A. Unknown Non Drug Allergy Mar, Unknown SOCIAL HISTORY No smoking Hx information available PLAN OF CARE VITAL SIGNS Height 70 in 2016-04-06 Weight 246.6 lbs 2016-04-06 Heart Rate 100 bpm 2016-04-06 Respiratory Rate 20 2016-04-06 BMI 35.38 kg/m2 2016-04-06 Blood pressure systolic 132 mmHg 2016-04-06 Blood pressure diastolic 94 mmHg 2016-04-06 MEDICATIONS Medication Instructions Dosage Frequency Start Date End Date Duration Status Claritin 10 MG Orally Once a day 1 tablet 24h Active Acyclovir 400 mg orally 3 times a day one tab 8h Mar, Active Viagra 100 MG Orally Once a day 1 tablet as needed 24h Nov, Active Toviaz 8 MG Orally Once a day 1 tablet 24h 30 Active ProAir HFA 108 (90 Base) MCG/ACT Inhalation every 4 hrs 2 puffs as needed 4h Mar, 7 days Active Omeprazole 20 mg Orally 2 times a day 1 capsule 12h 30 Active Toprol XL 100 MG Orally Once a day 1 tablet 24h Active Lipitor 80 MG Orally Once a day 1 tablet 24h Active Daina 0.5-0.4 MG Orally Once a day 1 capsule 24h Active Azithromycin 250 MG Orally Once a day 2 tablets on the first day, then 1 tablet daily for 4 days 24h Mar, Mar, 5 day(s) Active PredniSONE 20 MG Orally Once a day 2 tablet 24h Mar, Mar, 5 days Active RESULTS Name Result Date Reference Range INFLUENZA A & B (IN HOUSE) 2016-04-06 INFLUENZA A negative INFLUENZA B negative Control + Lot # [id number] Exp date 2017-05-09 STREP A (IN HOUSE) 2016-04-06 STREP A negative Control + Lot # [id number] Exp date 09-04-17 PROCEDURES Procedure Date Ordered Related Diagnosis Body Site STREP A ASSAY W/OPTIC Apr 06, 2016 INFLUENZA ASSAY W/OPTIC Apr 06, 2016 Office Visit, Est Pt., Level 3 Apr 06, 2016 IMMUNIZATIONS No Known Immunizations
--- OUTSIDE RECORDS SUMMARY | 2018-04-11 12:38 | XMS REPORT ---
Author SIRIA Ramsey Organization [employer] Address Unknown Phone Unavailable Care Team Providers Care Corn Husker Name Role Phone SIRIA PETERSON CP Unavailable Allergies, Adverse Reactions, Alerts Substance Reaction Event Type N.K.D.A. Info Not Available Non Drug Allergy Problems Problem Type Condition Code Onset Dates Condition Status Problem Low back pain M54.5 Active Assessment Hypertension, benign I10 Active Problem Hypertension, benign I10 Active Medications Medication Code System Code Instructions Start Date End Date Status Dosage Lipitor [facility] [address]-67 80 MG Orally Once a day 1 tablet Omeprazole [facility] [address]-89 20 MG Orally 2 times a day 1 capsule Daina [facility] [address]-75 0.5-0.4 MG Orally Once a day 1 capsule Viagra [facility] [address]-92 100 MG Orally Once a day Nov 29, 2014 Jun 02, 2015 1 tablet as needed Acyclovir [facility] [address]-02 400 mg orally 3 times a day Apr 20, 2015 one tab Toprol XL [facility] [address]-49 100 MG Orally Once a day 1 tablet Toviaz [facility] [address]-85 8 MG Orally Once a day 1 tablet Procedures Procedure Coding System Code Date Office Visit, Est Pt., Level 3 CPT-4 76945 Apr 20, 2015 Vital Signs Date/Time: Apr 20, 2015 Temperature 97.8 F Weight 243.5 lbs Height 70 in BMI 34.93 Index Blood Pressure Diastolic 80 mmHg Blood Pressure Systolic 130 mmHg Cardiac Monitoring Heart Rate 68 bpm Results No Known Results Summary Purpose [employer] Submission
--- OUTSIDE RECORDS SUMMARY | 2018-04-11 12:38 | XMS REPORT ---
Author Author SIRIA PETERSON [facility] Address [address] [place] [address] Care Team Providers Care Content Designer Name Role Phone SIRIA PETERSON Unavailable PROBLEMS Type Condition ICD9-CM Code [id number] Code Onset Dates Condition Status SNOMED Code Problem Seasonal allergic rhinitis, unspecified allergic rhinitis trigger J30.2 Active 691616073 Problem Hypertension, benign I10 Active 97998810 Problem Low back pain M54.5 Active 020596117 Problem Overactive bladder N32.81 Active 916954721 ALLERGIES Substance Reaction Event Type Date Status N.K.D.A. Unknown Non Drug Allergy May, Unknown SOCIAL HISTORY No smoking Hx information available PLAN OF CARE VITAL SIGNS Height 70 in 2016-06-01 Weight 243 lbs 2016-06-01 Temperature 98.0 degrees Fahrenheit 2016-06-01 Heart Rate 88 bpm 2016-06-01 Respiratory Rate 18 2016-06-01 BMI 34.86 kg/m2 2016-06-01 Blood pressure systolic 130 mmHg 2016-06-01 Blood pressure diastolic 80 mmHg 2016-06-01 MEDICATIONS Medication Instructions Dosage Frequency Start Date End Date Duration Status Omeprazole 20 mg Orally 2 times a day 1 capsule 12h 30 Active Lipitor 80 MG Orally Once a day 1 tablet 24h Active Toviaz 8 MG Orally Once a day 1 tablet 24h 30 Active Claritin 10 MG Orally Once a day 1 tablet 24h Active Acyclovir 400 MG Orally Twice a day 1 tablet 12h May, 10 day(s ) Active Viagra 100 MG Orally Once a day 1 tablet as needed 24h Nov, Active Toprol XL 100 MG Orally Once a day 1 tablet 24h Active Daina 0.5-0.4 MG Orally Once a day 1 capsule 24h Active RESULTS Name Result Date Reference Range CBC 2016-06-01 WBC 7.7 3.4-10.8 RBC 5.42 4.14-5.80 Hemoglobin 15.5 12.6-17.7 Hematocrit 46.8 37.5-51.0 MCV 86 79-97 MCH 28.6 26.6-33.0 MCHC 33.1 31.5-35.7 RDW 14.3 12.3-15.4 Platelets 210 150-379 Neutrophils 63 Lymphs 29 Monocytes 7 Eos 1 Basos 0 Neutrophils (Absolute) 4.9 1.4-7.0 Lymphs (Absolute) 2.2 0.7-3.1 Monocytes(Absolute) 0.5 0.1-0.9 Eos (Absolute) 0.1 0.0-0.4 Baso (Absolute) 0.0 0.0-0.2 Immature Granulocytes 0 Immature Grans (Abs) 0.0 0.0-0.1 CMP 2016-06-01 Glucose, Serum 103 65-99 BUN 16 6-24 Creatinine, Serum 0.89 0.76-1.27 eGFR If NonAfricn Am 96 >59 eGFR If Africn Am 110 >59 BUN/Creatinine Ratio 18 9-20 Sodium, Serum 140 134-144 Potassium, Serum 4.9 3.5-5.2 Chloride, Serum 100 96-106 Carbon Dioxide, Total 24 18-29 Calcium, Serum 9.4 8.7-10.2 Protein, Total, Serum 7.4 6.0-8.5 Albumin, Serum 4.7 3.5-5.5 Globulin, Total 2.7 1.5-4.5 A/G Ratio 1.7 1.1-2.5 Bilirubin, Total 0.3 0.0-1.2 Alkaline Phosphatase, S 77 39-117 AST (SGOT) 17 0-40 ALT (SGPT) 24 0-44 LIPID PANEL 2016-06-01 Cholesterol, Total 181 100-199 Triglycerides 124 0-149 HDL Cholesterol 46 >39 VLDL Cholesterol German 25 5-40 LDL Cholesterol Calc 110 0-99 Comment: PROCEDURES Procedure Date Ordered Related Diagnosis Body Site Office Visit, Est Pt., Level 3 Jun 01, 2016 COMPLETE CBC W/AUTO DIFF WBC Jun 01, 2016 COMPREHEN METABOLIC PANEL Jun 01, 2016 LIPID PANEL Jun 01, 2016 VENIPUNCT, ROUTINE* Jun 01, 2016 IMMUNIZATIONS No Known Immunizations
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
--- OUTSIDE RECORDS SUMMARY | 2018-04-11 12:38 | XMS REPORT ---
Author SIRIA Ramsey Organization [employer] Address Unknown Phone Unavailable Care Team Providers Care Pullman Clerk Name Role Phone SIRIA PETERSON CP Unavailable Allergies No Known Allergies Problems Problem Type Condition Code Onset Dates Condition Status Problem Low back pain M54.5 Active Problem Hypertension, benign I10 Active Medications Medication Code System Code Instructions Start Date End Date Status Dosage Toprol XL [facility] [address]-56 100 MG Orally Once a day 1 tablet Results No Known Results Summary Purpose [employer] Submission
--- OUTSIDE RECORDS SUMMARY | 2018-04-11 12:38 | XMS REPORT ---
Author BIMAL Nelson [employer] Address Unknown Phone Unavailable Care Team Providers Care Equities Analyst Name Role Phone BIMAL GRAHAM CP Unavailable Allergies, Adverse Reactions, Alerts Substance Reaction Event Type N.K.D.A. Info Not Available Non Drug Allergy Problems Problem Type Condition Code Onset Dates Condition Status Assessment Cough R05 Active Problem Enlargement of lymph nodes 785.6 Active Assessment Bronchitis J40 Active Problem HTN (hypertension) 401.9 Active Problem Routine general medical examination at health care facility V70.0 Active Problem Bronchitis J40 Active Problem Other, multiple, and unspecified sites, insect bite, nonvenomous, without mention of infection 919.4 Active Problem Unspecified disorder of skin and subcutaneous tissue 709.9 Active Problem Scar condition and fibrosis of skin 709.2 Active Problem Lumbago 724.2 Active Medications Medication Code System Code Instructions Start Date End Date Status Dosage Toviaz [facility] [address]-43 8 MG Orally Once a day 1 tablet Daina [facility] [address]-32 0.5-0.4 MG Orally Once a day 1 capsule Azithromycin [facility] [address]-59 250 MG Orally Once a day Mar 30, 2015 Apr 04, 2015 2 tablets on the first day, then 1 tablet daily for 4 days Toprol XL [facility] [address]-08 100 MG Orally Once a day 1 tablet Lipitor [facility] [address]-90 80 MG Orally Once a day 1 tablet Omeprazole [facility] [address]-67 20 MG Orally 2 times a day 1 capsule Viagra [facility] [address]-64 100 MG Orally Once a day Nov 29, 2014 Jun 02, 2015 1 tablet as needed Procedures Procedure Coding System Code Date Office Visit, Est Pt., Level 3 CPT-4 08902 Mar 30, 2015 MEASURE BLOOD OXYGEN LEVEL CPT-4 48027 Mar 30, 2015 Vital Signs Date/Time: Mar 30, 2015 Temperature 97.8 F Weight 242 lbs Height 70 in Oximetry 98 % Blood Pressure Diastolic 86 mmHg Blood Pressure Systolic 132 mmHg Cardiac Monitoring Heart Rate 67 bpm BMI 34.72 Index Results No Known Results Summary Purpose [employer] Submission
--- OUTSIDE RECORDS SUMMARY | 2018-04-11 12:39 | XMS REPORT ---
Author Author SIRIA PETERSON [facility] Address [address] [place] [address] Care Team Providers Care Glove Cuffer Name Role Phone SIRIA PETERSON Unavailable PROBLEMS Type Condition ICD9-CM Code [id number] Code Onset Dates Condition Status SNOMED Code Problem Seasonal allergic rhinitis, unspecified allergic rhinitis trigger J30.2 Active 547096494 Problem Hypertension, benign I10 Active 39244882 Problem Low back pain M54.5 Active 227288041 Problem Overactive bladder N32.81 Active [id number] ALLERGIES No Information SOCIAL HISTORY Never Assessed PLAN OF CARE VITAL SIGNS MEDICATIONS No Known Medications RESULTS No Results PROCEDURES No Known [...]
--- OUTSIDE RECORDS SUMMARY | 2018-04-11 12:39 | XMS REPORT ---
Author SIRIA Ramsey Organization [employer] Address Unknown Phone Unavailable Care Team Providers Care Bus Steward Name Role Phone SIRIA PETERSON CP Unavailable Allergies No Known Allergies Problems Problem Type Condition Code Onset Dates Condition Status Problem Low back pain M54.5 Active Problem Overactive bladder N32.81 Active Problem Hypertension, benign I10 Active Medications No Known Medications Results No Known Results Summary Purpose [employer] Submission
--- OUTSIDE RECORDS SUMMARY | 2018-04-11 12:39 | XMS REPORT ---
Author SIRIA Ramsey Organization [employer] Address Unknown Phone Unavailable Care Team Providers Care Precinct Police Captain Name Role Phone SIRIA PETERSON CP Unavailable Allergies No Known Allergies Problems Problem Type Condition Code Onset Dates Condition Status Problem Low back pain M54.5 Active Problem Hypertension, benign I10 Active Medications Medication Code System Code Instructions Start Date End Date Status Dosage Omeprazole [facility] [address]-57 20 MG Orally 2 times a day 1 capsule Results No Known Results Summary Purpose [employer] Submission
--- OUTSIDE RECORDS SUMMARY | 2018-04-11 12:39 | XMS REPORT ---
Author JEREMY Garcia [facility] [employer] Address Unknown Phone Unavailable Care Team Providers Care Creative Producer Name Role Phone JEREMY GAITAN Unavailable Allergies, Adverse Reactions, Alerts Substance Reaction Event Type N.K.D.A. Info Not Available Non Drug Allergy Problems Problem Type Condition Code Onset Dates Condition Status Assessment Insect bite (nonvenomous), left knee, initial encounter S80.262A Active Problem Routine general medical examination at [...] Start Date End Date Status Dosage Toviaz [facility] [address]-63 8 MG Orally Once a day 1 tablet Daina [facility] [address]-29 0.5-0.4 MG Orally Once a day 1 capsule Omeprazole [facility] [address]-68 20 MG Orally 2 times a day 1 capsule Toprol XL [facility] [address]-47 100 MG Orally Once a day 1 tablet Lipitor [facility] [address]-23 80 MG Orally Once a day 1 tablet Bactroban [facility] [address]-91 2 % Externally Three times a day Feb 24, 2015 1 application to affected area Viagra [facility] [address]-01 100 MG Orally Once a day Nov 29, 2014 Jun 02, 2015 1 tablet as needed Procedures Procedure Coding System Code Date ROCEPHIN 1 GM (IM) CPT-4 J0696 Feb 24, 2015 THER/PROPH/DIAG INJ, SC/IM CPT-4 23642 Feb 24, 2015 Office Visit, Est Pt., Level 3 CPT-4 70794 Feb 24, 2015 Vital Signs Date/Time: Feb 24, 2015 Temperature 97.0 F Weight 234 lbs Height 70 in BMI 33.57 Index Blood Pressure Diastolic 65 mmHg Blood Pressure Systolic 120 mmHg Cardiac Monitoring Heart Rate 60 bpm Results No Known Results Summary Purpose [employer] Submission
--- OUTSIDE RECORDS SUMMARY | 2018-04-11 12:39 | XMS REPORT ---
Author Author SIRIA PETERSON [facility] Address [address] [place] [address] Care Team Providers Care Metal Sash Setter Name Role Phone SIRIA PETERSON Unavailable PROBLEMS Type Condition ICD9-CM Code [id number] Code Onset Dates Condition Status SNOMED Code Problem Seasonal allergic rhinitis, unspecified allergic rhinitis trigger J30.2 Active 846718214 Problem Hypertension, benign I10 Active 24056950 Problem Low back pain M54.5 Active 115950912 Problem Overactive bladder N32.81 Active 660138168 ALLERGIES No Information SOCIAL HISTORY Never Assessed [...]
--- OUTSIDE RECORDS SUMMARY | 2018-04-11 12:39 | XMS REPORT ---
Author SIRIA Ramsey Organization [employer] Address Unknown Phone Unavailable Care Team Providers Care Supervisor Grower Name Role Phone SIRIA PETERSON CP Unavailable Allergies No Known Allergies Problems Problem Type Condition Code Onset Dates Condition Status Problem Low back pain M54.5 Active Problem Overactive bladder N32.81 Active Problem Hypertension, benign I10 Active Medications No Known Medications Results No Known Results Summary Purpose [employer] Submission
--- OUTSIDE RECORDS SUMMARY | 2018-04-11 12:39 | XMS REPORT ---
Author SIRIA Ramsey Organization [employer] Address Unknown Phone Unavailable Care Team Providers Care Fish Butcher Name Role Phone SIRIA PETERSON CP Unavailable Allergies No Known Allergies Problems Problem Type Condition Code Onset Dates Condition Status Problem Low back pain M54.5 Active Problem Overactive bladder N32.81 Active Problem Hypertension, benign I10 Active Medications Medication Code System Code Instructions Start Date End Date Status Dosage Daina [facility] [address]-88 0.5-0.4 MG Orally Once a day 1 capsule Toprol XL [facility] [address]-83 100 MG Orally Once a day 1 tablet Lipitor [facility] [address]-41 80 MG Orally Once a day 1 tablet Results No Known Results Summary Purpose [employer] Submission
--- OUTSIDE RECORDS SUMMARY | 2018-04-11 12:39 | XMS REPORT ---
Author Author SIRIA PETERSON Organization [employer] Address Unknown Phone Unavailable Care Team Providers Care Campaign Director Name Role Phone SIRIA PETERSON CP Unavailable Allergies No Known Allergies Problems Problem Type Condition Code Onset Dates Condition Status Problem Low back pain M54.5 Active Assessment Hypertension, benign I10 Active Problem Hypertension, benign I10 Active Medications No Known Medications Procedures Procedure Coding System Code Date COMPREHEN METABOLIC PANEL CPT-4 08409 Apr 21, 2015 LIPID PANEL CPT-4 62880 Apr 21, 2015 COMPLETE CBC W/AUTO DIFF WBC CPT-4 94350 Apr 21, 2015 VENIPUNCT, ROUTINE* CPT-4 76043 Apr 21, 2015 Results Name Result Date Reference Range Unit Abnormality Flag ROUTINE VENIPUNCTURE Summary Purpose [employer]Works Submission
--- OUTSIDE RECORDS SUMMARY | 2018-04-11 12:39 | XMS REPORT ---
Author SIRIA Ramsey Organization [employer] Address Unknown Phone Unavailable Care Team Providers Care Chief Wheelage Clerk Name Role Phone SIRIA PETERSON CP Unavailable Allergies No Known Allergies Problems Problem Type Condition Code Onset Dates Condition Status Problem Low back pain M54.5 Active Problem Overactive bladder N32.81 Active Problem Hypertension, benign I10 Active Medications Medication Code System Code Instructions Start Date End Date Status Dosage Toviaz [facility] [address]-31 8 MG Orally Once a day 1 tablet Results No Known Results Summary Purpose [employer] Submission
--- OUTSIDE RECORDS SUMMARY | 2018-04-11 12:39 | XMS REPORT ---
Author SIRIA Ramsey Organization [employer] Address Unknown Phone Unavailable Care Team Providers Care Monogram Maker Name Role Phone SIRIA PETERSON CP Unavailable Allergies No Known Allergies Problems Problem Type Condition Code Onset Dates Condition Status Problem Low back pain M54.5 Active Problem Overactive bladder N32.81 Active Problem Hypertension, benign I10 Active Medications No Known Medications Results No Known Results Summary Purpose [employer] Submission
--- OUTSIDE RECORDS SUMMARY | 2018-04-11 12:39 | XMS REPORT ---
Author SIRIA Ramsey Organization [employer] Address Unknown Phone Unavailable Care Team Providers Care Nitro Man Name Role Phone SIRIA PETERSON CP Unavailable Allergies No Known Allergies Problems Problem Type Condition Code Onset Dates Condition Status Problem Low back pain M54.5 Active Problem Hypertension, benign I10 Active Medications No Known Medications Results No Known Results Summary Purpose [employer] Submission
--- OUTSIDE RECORDS SUMMARY | 2018-04-11 12:39 | XMS REPORT ---
Author Author ANNIA JAMES Organization [facility] Address [address] [place] [address] Care Team Providers Care General Merchandise Salesperson Name Role Phone ANNIA JAMES Unavailable PROBLEMS Type Condition ICD9-CM Code [id number] Code Onset Dates Condition Status SNOMED Code Problem Seasonal allergic rhinitis, unspecified allergic rhinitis trigger J30.2 Active 676140531 Problem Hypertension, benign I10 Active 04434527 Problem Low back pain M54.5 Active 169058430 Problem Overactive bladder N32.81 Active 062368285 ALLERGIES No Known Allergies SOCIAL HISTORY Never Assessed PLAN OF CARE Activity Details Follow Up prn Reason: VITAL SIGNS Height 70 in 2016-07-15 Weight 244.0 lbs 2016-07-15 Temperature 98.0 degrees Fahrenheit 2016-07-15 Heart Rate 74 bpm 2016-07-15 Respiratory Rate 18 2016-07-15 BMI 35.01 kg/m2 2016-07-15 Blood pressure systolic 142 mmHg 2016-07-15 Blood pressure diastolic 82 mmHg 2016-07-15 MEDICATIONS Medication Instructions Dosage Frequency Start Date End Date Duration Status Acyclovir 400 mg Orally Twice a day 1 tablet 12h May, Active Claritin 10 MG Orally Once a day 1 tablet 24h Active Amoxicillin 875 MG Orally every 12 hrs 1 tablet 12h Jun, Jun, 10 day(s) Active Toprol XL 100 MG Orally Once a day 1 tablet 24h Active Lipitor 80 MG Orally Once a day 1 tablet 24h Active Toviaz 8 MG Orally Once a day 1 tablet 24h 30 Active Viagra 100 MG Orally Once a day 1 tablet as needed 24h Nov, Active Flonase Allergy Relief 50 MCG/ACT Nasally twice per day 1 spray in each nostril Jun, 30 day(s) Active Omeprazole 20 mg Orally 2 times a day 1 capsule 12h 30 Active Cetirizine HCl 10 MG Orally Once a day 1 tablet 24h Jun, Jul, 30 day(s) Active Daina 0.5-0.4 MG Orally Once a [...]
--- OUTSIDE RECORDS SUMMARY | 2018-04-11 12:39 | XMS REPORT ---
Author Author SIRIA PETERSON [facility] Address [address] [place] [address] Care Team Providers Care Automatic Lump Making Machine Tender Name Role Phone SIRIA PETERSON Unavailable PROBLEMS Type Condition ICD9-CM Code [id number] Code Onset Dates Condition Status SNOMED Code Problem Hypertension, benign I10 Active 77296410 Problem Low back pain M54.5 Active 161172926 Problem Overactive bladder N32.81 Active 322921922 Assessment Ganglion cyst of finger of right hand M67.441 Dec, Active 549164344 ALLERGIES Substance Reaction Event Type Date Status N.K.D.A. Unknown Non Drug Allergy Dec, Unknown SOCIAL HISTORY No smoking Hx information available PLAN OF CARE VITAL SIGNS Height 70 in 2016-01-10 Weight 237 lbs 2016-01-10 Heart Rate 76 bpm 2016-01-10 Respiratory Rate 18 2016-01-10 BMI 34.00 kg/m2 2016-01-10 Blood pressure systolic 150 mmHg 2016-01-10 Blood pressure diastolic 84 mmHg 2016-01-10 MEDICATIONS Medication Instructions Dosage Frequency Start Date End Date Duration Status Viagra 100 MG Orally Once a day 1 tablet as needed 24h 17 Nov, 2015 Active Daina 0.5-0.4 MG Orally Once a day 1 capsule 24h Active Lipitor 80 MG Orally Once a day 1 tablet 24h Active Claritin 10 MG Orally Once a day 1 tablet 24h Active Acyclovir 400 mg orally 3 times a day one tab 8h Mar, Active Toprol XL 100 MG Orally Once a day 1 tablet 24h Active Toviaz 8 MG Orally Once a day 1 tablet 24h Active Omeprazole 20 mg Orally 2 times a day 1 capsule 12h 30 Active RESULTS No Results PROCEDURES Procedure Date Ordered Related Diagnosis Body Site ASPIRATE/INJ GANGLION CYST 2016-01-10 N/A ASPIRATE/INJ GANGLION CYST Jan 10, 2016 Office Visit, Est Pt., Level 2 Jan 10, 2016 IMMUNIZATIONS No Known Immunizations
--- OUTSIDE RECORDS SUMMARY | 2018-04-11 12:40 | XMS REPORT | Continuity of Care Document ---
Author Author [facility] [place] [facility] of [facility] Address Unknown Phone Unavailable Allergies Active Description Code Type Severity Reaction Onset Reported/Identified Relationship to Patient Clinical Status Yes No Known Drug Allergies [id number] Drug Allergy Unknown N/A 04/24/2010 Medications There is no data. 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 03/28/2010 V76.51 SPECIAL SCREENING FOR MALIGNANT NEOPLASMS COLON 03/28/2010 LEARY DO, SHARIF K 070.54 CHRONIC HEPATITIS C WITHOUT HEPATIC COMA 03/28/2010 LEARY DO, SHARIF K 272.4 OTHER AND UNSPECIFIED HYPERLIPIDEMIA 03/28/2010 LEARY DO, SHARIF K 401.9 UNSPECIFIED ESSENTIAL HYPERTENSION 03/28/2010 LEARY DO, SHARIF K 600.01 HYPERTROPHY (BENIGN) OF PROSTATE WITH 03/28/2010 LEARY DO, SHARIF K V76.51 SPECIAL SCREENING FOR MALIGNANT NEOPLASMS COLON 03/28/2010 LEARY DO, SHARIF K 070.54 CHRONIC HEPATITIS C WITHOUT HEPATIC COMA 03/28/2010 LEARY DO, SHARIF K 272.4 OTHER AND UNSPECIFIED HYPERLIPIDEMIA 03/28/2010 LEARY DO, SHARIF K 401.9 UNSPECIFIED ESSENTIAL HYPERTENSION 03/28/2010 LEARY DO, SHARIF K 600.01 HYPERTROPHY (BENIGN) OF PROSTATE WITH 03/28/2010 LEARY DO, SHARIF K V76.51 SPECIAL SCREENING FOR MALIGNANT NEOPLASMS COLON 03/28/2010 070.54 CHRONIC HEPATITIS C WITHOUT HEPATIC COMA 03/28/2010 272.4 OTHER AND UNSPECIFIED HYPERLIPIDEMIA 03/28/2010 401.9 UNSPECIFIED ESSENTIAL HYPERTENSION 03/28/2010 600.01 HYPERTROPHY ( BENIGN) OF PROSTATE WITH 03/28/2010 V76.51 SPECIAL SCREENING FOR MALIGNANT NEOPLASMS COLON 03/28/2010 VENUS ONOFRE MD 070.54 CHRONIC HEPATITIS C WITHOUT HEPATIC COMA 03/28/2010 VENUS ONOFRE MD 272.4 OTHER AND UNSPECIFIED HYPERLIPIDEMIA 03/28/2010 VENUS ONOFRE MD 401.9 UNSPECIFIED ESSENTIAL HYPERTENSION 03/28/2010 VENUS ONOFRE MD 600.01 HYPERTROPHY (BENIGN) OF PROSTATE WITH 03/28/2010 VENUS ONOFRE MD V76.51 SPECIAL SCREENING FOR MALIGNANT NEOPLASMS COLON 03/28/2010 WHITE DDS, BABAR D 070.54 CHRONIC HEPATITIS C WITHOUT HEPATIC COMA 03/28/2010 WHITE DDS, BABAR D 272.4 OTHER AND UNSPECIFIED HYPERLIPIDEMIA 03/28/2010 WHITE DDS, BABAR D 401.9 UNSPECIFIED ESSENTIAL HYPERTENSION 03/28/2010 WHITE DDS, BABAR D 600.01 HYPERTROPHY (BENIGN) OF PROSTATE WITH 03/28/2010 WHITE DDS, BABAR D V76.51 SPECIAL SCREENING FOR MALIGNANT NEOPLASMS COLON 03/28/2010 LEARY DO, SHARIF K 070.54 CHRONIC HEPATITIS C WITHOUT HEPATIC COMA 03/28/2010 LEARY DO, SHARIF K 272.4 OTHER AND UNSPECIFIED HYPERLIPIDEMIA 03/28/2010 LEARY DO, SHARIF K 401.9 UNSPECIFIED ESSENTIAL HYPERTENSION 03/28/2010 LEARY DO, SHARIF K 600.01 HYPERTROPHY (BENIGN) OF PROSTATE WITH 03/28/2010 LEARY DO, SHARIF K V76.51 SPECIAL SCREENING FOR MALIGNANT NEOPLASMS COLON 03/28/2010 LEARY DO, SHARIF K 070.54 CHRONIC HEPATITIS C WITHOUT HEPATIC COMA 03/28/2010 LEARY DO, SHARIF K 272.4 OTHER AND UNSPECIFIED HYPERLIPIDEMIA 03/28/2010 LEARY DO, SHARIF K 401.9 UNSPECIFIED ESSENTIAL HYPERTENSION 03/28/2010 LEARY DO, SHARIF K 600.01 HYPERTROPHY (BENIGN) OF PROSTATE WITH 03/28/2010 LEARY DO, SHARIF K V76.51 SPECIAL SCREENING FOR MALIGNANT NEOPLASMS COLON 03/28/2010 SIRIA PETERSON APRN 070.54 CHRONIC HEPATITIS C WITHOUT HEPATIC COMA 03/28/2010 SIRIA PETERSON APRN 272.4 OTHER AND UNSPECIFIED HYPERLIPIDEMIA 03/28/2010 SIRIA PETERSON APRN T 401.9 UNSPECIFIED ESSENTIAL HYPERTENSION 03/28/2010 SIRIA PETERSON APRN 600.01 HYPERTROPHY (BENIGN) OF PROSTATE WITH 03/28/2010 SIRIA PETERSNO APRN V76.51 SPECIAL SCREENING FOR MALIGNANT NEOPLASMS COLON 03/28/2010 LEARY DO, SHARIF K 070.54 CHRONIC HEPATITIS C WITHOUT HEPATIC COMA 03/28/2010 LEARY DO, SHARIF K 272.4 OTHER AND UNSPECIFIED HYPERLIPIDEMIA 03/28/2010 LEARY DO, SHARIF K 401.9 UNSPECIFIED ESSENTIAL HYPERTENSION 03/28/2010 LEARY DO, SHARIF K 600.01 HYPERTROPHY (BENIGN) OF PROSTATE WITH 03/28/2010 LEARY DO, SHARIF K V76.51 SPECIAL SCREENING FOR MALIGNANT NEOPLASMS COLON 03/28/2010 LEARY DO, SHARIF K 070.54 CHRONIC HEPATITIS C WITHOUT HEPATIC COMA 03/28/2010 LEARY DO, SHARIF K 272.4 OTHER AND UNSPECIFIED HYPERLIPIDEMIA 03/28/2010 LEARY DO, SHARIF K 401.9 UNSPECIFIED ESSENTIAL HYPERTENSION 03/28/2010 LEARY DO, SHARIF K 600.01 HYPERTROPHY (BENIGN) OF PROSTATE WITH 03/28/2010 LEARY DO, SHARIF K V76.51 SPECIAL SCREENING FOR MALIGNANT NEOPLASMS COLON 03/28/2010 LEARY DO, SHARFI K 070.54 CHRONIC HEPATITIS C WITHOUT HEPATIC COMA 03/28/2010 LEARY DO, SHARIF K 272.4 OTHER AND UNSPECIFIED HYPERLIPIDEMIA 03/28/2010 LEARY DO, SHARIF K 401.9 UNSPECIFIED ESSENTIAL HYPERTENSION 03/28/2010 LEARY DO, SHARIF K 600.01 HYPERTROPHY (BENIGN) OF PROSTATE WITH 03/28/2010 LEARY DO, SHARIF K V76.51 SPECIAL SCREENING FOR MALIGNANT NEOPLASMS COLON 03/28/2010 LEARY DO, SHARIF K 070.54 CHRONIC HEPATITIS C WITHOUT HEPATIC COMA 03/28/2010 LEARY DO, SHARIF K 272.4 OTHER AND UNSPECIFIED HYPERLIPIDEMIA 03/28/2010 LEARY DO, SHARIF K 401.9 UNSPECIFIED ESSENTIAL HYPERTENSION 03/28/2010 LEARY DO, SHARIF K 600.01 HYPERTROPHY (BENIGN) OF PROSTATE WITH 03/28/2010 LEARY DO, SHARIF K V76.51 SPECIAL SCREENING FOR MALIGNANT NEOPLASMS COLON 03/28/2010 LEARY DO, SHARIF K 070.54 CHRONIC HEPATITIS C WITHOUT HEPATIC COMA 03/28/2010 LEARY DO, SHARIF K 272.4 OTHER AND UNSPECIFIED HYPERLIPIDEMIA 03/28/2010 LEARY DO, SHARIF K 401.9 UNSPECIFIED ESSENTIAL HYPERTENSION 03/28/2010 LEARY DO, SHARIF K 600.01 HYPERTROPHY (BENIGN) OF PROSTATE WITH 03/28/2010 LEARY DO, SHARIF K V76.51 SPECIAL SCREENING FOR MALIGNANT NEOPLASMS COLON 04/24/2010 Ot V76.51 10/24/2010 054.10 GENITAL HERPES UNSPECIFIED 10/24/2010 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 10/24/2010 LEARY DO, SHARIF K 054.10 GENITAL HERPES UNSPECIFIED 10/24/2010 LEARY DO, SHARIF K 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 10/24/2010 LEARY DO, SHARIF K 054.10 GENITAL HERPES UNSPECIFIED 10/24/2010 LEARY DO, SHARIF K 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 10/24/2010 054.10 GENITAL HERPES UNSPECIFIED 10/24/2010 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 10/24/2010 VENUS ONOFRE MD 054.10 GENITAL HERPES UNSPECIFIED 10/24/2010 VENUS ONOFRE MD 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 10/24/2010 WHITE DDS, BABAR D 054.10 GENITAL HERPES UNSPECIFIED 10/24/2010 WHITE DDS, BABAR Betancur 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 10/24/2010 LEARY DO, SHARIF K 054.10 GENITAL HERPES UNSPECIFIED 10/24/2010 LEARY DO, SHARIF K 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 10/24/2010 LEARY DO, SHARIF K 054.10 GENITAL HERPES UNSPECIFIED 10/24/2010 LEARY DO, SHARIF K 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 10/24/2010 SIRIA PETERSON APRN 054.10 GENITAL HERPES UNSPECIFIED 10/24/2010 SIRIA PETERSON APRN 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 10/24/2010 LEARY DO, SHARIF K 054.10 GENITAL HERPES UNSPECIFIED 10/24/2010 LEARY DO, SHARIF K 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 10/24/2010 LEARY DO, SHARIF K 054.10 GENITAL HERPES UNSPECIFIED 10/24/2010 LEARY DO, SHARIF K 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 10/24/2010 LEARY DO, SHARIF K 054.10 GENITAL HERPES UNSPECIFIED 10/24/2010 LEARY DO, SHARIF K 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 10/24/2010 LEARY DO, SHARIF K 054.10 GENITAL HERPES UNSPECIFIED 10/24/2010 LEARY DO, SHARIF K 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 10/24/2010 LEARY DO, SHARIF K 054.10 GENITAL HERPES UNSPECIFIED 10/24/2010 LEARY DO, SHARIF K 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 10/31/2010 070.70 Hepatitis C, Unspec 10/31/2010 401.1 HYPERTENSION, BENIGN ESSENTIAL 10/31/2010 LEARY DO, SHARIF K 070.70 Hepatitis C, Unspec 10/31/2010 LEARY DO, SHARIF K 401.1 HYPERTENSION, BENIGN ESSENTIAL 10/31/2010 LEARY DO, SHARIF K 070.70 Hepatitis C, Unspec 10/31/2010 LEARY DO, SHARIF K 401.1 HYPERTENSION, BENIGN ESSENTIAL 10/31/2010 070.70 Hepatitis C, Unspec 10/31/2010 401.1 HYPERTENSION, BENIGN ESSENTIAL 10/31/2010 VENUS ONOFRE MD 070.70 Hepatitis C, Unspec 10/31/2010 VENUS ONOFRE MD 401.1 HYPERTENSION, BENIGN ESSENTIAL 10/31/2010 WHITE DDS, BABAR D 070.70 Hepatitis C, Unspec 10/31/2010 WHITE DDS, BABAR D 401.1 HYPERTENSION, BENIGN ESSENTIAL 10/31/2010 LEARY DO, SHARIF K 070.70 Hepatitis C, Unspec 10/31/2010 LEARY DO, SHARIF K 401.1 HYPERTENSION, BENIGN ESSENTIAL 10/31/2010 LEARY DO, SHARIF K 070.70 Hepatitis C, Unspec 10/31/2010 LEARY DO, SHARIF K 401.1 HYPERTENSION, BENIGN ESSENTIAL 10/31/2010 SIRIA PETERSON APRN 070.70 Hepatitis C, Unspec 10/31/2010 SIRIA PETERSON APRN 401.1 HYPERTENSION, BENIGN ESSENTIAL 10/31/2010 LEARY DO, SHARIF K 070.70 Hepatitis C, Unspec 10/31/2010 LEARY DO, SHARIF K 401.1 HYPERTENSION, BENIGN ESSENTIAL 10/31/2010 LEARY DO, SAHRIF K 070.70 Hepatitis C, Unspec 10/31/2010 LEARY DO, SHARIF K 401.1 HYPERTENSION, BENIGN ESSENTIAL 10/31/2010 LEARY DO, SHARIF K 070.70 Hepatitis C, Unspec 10/31/2010 LEARY DO, SHARIF K 401.1 HYPERTENSION, BENIGN ESSENTIAL 10/31/2010 LEARY DO, SHARIF K 070.70 Hepatitis C, Unspec 10/31/2010 LEARY DO, SHARIF K 401.1 HYPERTENSION, BENIGN ESSENTIAL 10/31/2010 LEARY DO, SHARIF K 070.70 Hepatitis C, Unspec 10/31/2010 LEARY DO, SHARIF K 401.1 HYPERTENSION, BENIGN ESSENTIAL 12/28/2010 V06.1 Tdap Dx 12/28/2010 LEARY DO, SHARIF K V06.1 Tdap Dx 12/28/2010 LEARY DO, SHARIF K V06.1 Tdap Dx 12/28/2010 V06.1 Tdap Dx 12/28/2010 VENUS ONOFRE MD V06.1 Tdap Dx 12/28/2010 BABAR BARKSDALE DDS V06.1 Tdap Dx 12/28/2010 LEARY DO, SHARIF K V06.1 Tdap Dx 12/28/2010 LEARY DO, SHARIF K V06.1 Tdap Dx 12/28/2010 SIRIA PETERSON APRN V06.1 Tdap Dx 12/28/2010 LEARY DO, SHARIF K V06.1 Tdap Dx 12/28/2010 LEARY DO, SHARIF K V06.1 Tdap Dx 12/28/2010 LEARY DO, SHARIF K V06.1 Tdap Dx 12/28/2010 LEARY DO, SHARIF K V06.1 Tdap Dx 12/28/2010 LEARY DO, SHARIF K V06.1 Tdap Dx 03/30/2011 053.9 Herpes Zoster (shingles) 03/30/2011 LEARY DO, SHARIF K 053.9 Herpes Zoster (shingles) 03/30/2011 LEARY DO, SHARIF K 053.9 Herpes Zoster (shingles) 03/30/2011 053.9 Herpes Zoster (shingles) 03/30/2011 VENUS ONOFRE MD 053.9 Herpes Zoster (shingles) 03/30/2011 BABAR BARKSDALE DDS 053.9 Herpes Zoster (shingles) 03/30/2011 LEARY DO, SHARIF K 053.9 Herpes Zoster (shingles) 03/30/2011 LEARY DO, SHARIF K 053.9 Herpes Zoster (shingles) 03/30/2011 SIRIA PETERSON APRN 053.9 Herpes Zoster (shingles) 03/30/2011 LEARY DO, SHARIF K 053.9 Herpes Zoster (shingles) 03/30/2011 LEARY DO, SHARIF K 053.9 Herpes Zoster (shingles) 03/30/2011 LEARY DO, SHARIF K 053.9 Herpes Zoster (shingles) 03/30/2011 LEARY DO, SHARIF K 053.9 Herpes Zoster (shingles) 03/30/2011 SHARIF LEARY DO K 053.9 Herpes Zoster (shingles) 03/10/2012 709.2 SCAR CONDITIONS AND FIBROSIS OF SKIN 03/10/2012 V70.0 ROUTINE GENERAL MEDICAL EXAMINATION AT A HEALTH CARE FACILITY 03/10/2012 SHARIF LEARY DO K 709.2 SCAR CONDITIONS AND FIBROSIS OF SKIN 03/10/2012 MICHAEL LEARY DOA K V70.0 ROUTINE GENERAL MEDICAL EXAMINATION AT A HEALTH CARE FACILITY 03/10/2012 SHARIF LEARY DO K 709.2 SCAR CONDITIONS AND FIBROSIS OF SKIN 03/10/2012 MICHALE LEARY DOA K V70.0 ROUTINE GENERAL MEDICAL EXAMINATION AT A HEALTH CARE FACILITY 03/10/2012 709.2 SCAR CONDITIONS AND FIBROSIS OF SKIN 03/10/2012 V70.0 ROUTINE GENERAL MEDICAL EXAMINATION AT A HEALTH CARE FACILITY 03/10/2012 VENUS ONOFRE MD 709.2 SCAR CONDITIONS AND FIBROSIS OF SKIN 03/10/2012 VENUS ONOFRE MD V70.0 ROUTINE GENERAL MEDICAL EXAMINATION AT A HEALTH CARE FACILITY 03/10/2012 BABAR BARKSDALE DDS 709.2 SCAR CONDITIONS AND FIBROSIS OF SKIN 03/10/2012 SHAMIR REMYSBABAR V70.0 ROUTINE GENERAL MEDICAL EXAMINATION AT A HEALTH CARE FACILITY 03/10/2012 SHARIF LEARY DO 709.2 SCAR CONDITIONS AND FIBROSIS OF SKIN 03/10/2012 MICHAEL LEARY DOA K V70.0 ROUTINE GENERAL MEDICAL EXAMINATION AT A HEALTH CARE FACILITY 03/10/2012 SHARIF LEARY DO K 709.2 SCAR CONDITIONS AND FIBROSIS OF SKIN 03/10/2012 MICHAEL LEARY DOA K V70.0 ROUTINE GENERAL MEDICAL EXAMINATION AT A HEALTH CARE FACILITY 03/10/2012 SIRIA PETERSON APRN 709.2 SCAR CONDITIONS AND FIBROSIS OF SKIN 03/10/2012 SIRIA EPTERSON APRN V70.0 ROUTINE GENERAL MEDICAL EXAMINATION AT A HEALTH CARE FACILITY 03/10/2012 SHARIF LEARY DO K 709.2 SCAR CONDITIONS AND FIBROSIS OF SKIN 03/10/2012 MICHAEL LEARY DOA K V70.0 ROUTINE GENERAL MEDICAL EXAMINATION AT A HEALTH CARE FACILITY 03/10/2012 MICHAEL LEARY DOA K 709.2 SCAR CONDITIONS AND FIBROSIS OF SKIN 03/10/2012 MICHAEL LEARY DOA K V70.0 ROUTINE GENERAL MEDICAL EXAMINATION AT A HEALTH CARE FACILITY 03/10/2012 LEARY DO, SHARIF K 709.2 SCAR CONDITIONS AND FIBROSIS OF SKIN 03/10/2012 LEARY DO, SHARIF K V70.0 ROUTINE GENERAL MEDICAL EXAMINATION AT A HEALTH CARE FACILITY 03/10/2012 LEARY DO, SHARIF K 709.2 SCAR CONDITIONS AND FIBROSIS OF SKIN 03/10/2012 LEARY DO, SHARIF K V70.0 ROUTINE GENERAL MEDICAL EXAMINATION AT A HEALTH CARE FACILITY 03/10/2012 LEARY DO, SHARIF K 709.2 SCAR CONDITIONS AND FIBROSIS OF SKIN 03/10/2012 LEARY DO, SHARIF K V70.0 ROUTINE GENERAL MEDICAL EXAMINATION AT A HEALTH CARE FACILITY 11/12/2012 709.9 UNSPECIFIED DISORDER OF SKIN AND SUBCUTANEOUS TISSUE 11/12/2012 VENUS ONOFRE MD 709.9 UNSPECIFIED DISORDER OF SKIN AND SUBCUTANEOUS TISSUE 11/12/2012 BABAR BARKSDALE DDS 709.9 UNSPECIFIED DISORDER OF SKIN AND SUBCUTANEOUS TISSUE 11/12/2012 LEARY DO, SHARIF K 709.9 UNSPECIFIED DISORDER OF SKIN AND SUBCUTANEOUS TISSUE 11/12/2012 LEARY DO, SHARIF K 709.9 UNSPECIFIED DISORDER OF SKIN AND SUBCUTANEOUS TISSUE 11/12/2012 SIRIA PETERSON APRN 709.9 UNSPECIFIED DISORDER OF SKIN AND SUBCUTANEOUS TISSUE 11/12/2012 LEARY DO, SHARIF K 709.9 UNSPECIFIED DISORDER OF SKIN AND SUBCUTANEOUS TISSUE 11/12/2012 LEARY DO, SHARIF K 709.9 UNSPECIFIED DISORDER OF SKIN AND SUBCUTANEOUS TISSUE 11/12/2012 LEARY DO, SHARIF K 709.9 UNSPECIFIED DISORDER OF SKIN AND SUBCUTANEOUS TISSUE 11/12/2012 LEARY DO, SHARIF K 709.9 UNSPECIFIED DISORDER OF SKIN AND SUBCUTANEOUS TISSUE 03/11/2013 VENUS ONOFRE MD 724.2 LUMBAGO/ LOW BACK PAIN 03/11/2013 BABAR BARKSDALE DDS 724.2 LUMBAGO/ LOW BACK PAIN 03/11/2013 LEARY DO, SHARIF K 724.2 LUMBAGO/ LOW BACK PAIN 03/11/2013 LEARY DO, SHARIF K 724.2 LUMBAGO/ LOW BACK PAIN 03/11/2013 SIRIA PETERSON APRN 724.2 LUMBAGO/ LOW BACK PAIN 03/11/2013 LEARY DO, SHARIF K 724.2 LUMBAGO/ LOW BACK PAIN 03/11/2013 LEARY DO, SHARIF K 724.2 LUMBAGO/ LOW BACK PAIN 03/11/2013 LEARY DO, SHARIF K 724.2 LUMBAGO/ LOW BACK PAIN 03/11/2013 LEARY DO, SHARIF K 724.2 LUMBAGO/ LOW BACK PAIN 08/10/2013 SIRIA PETERSON APRN 919.4 INSECT BITE NONVENOMOUS OF OTHER MULTIPLE AND UNSPECIFIED SITES WITHOUT INFECTION 08/10/2013 SIRIA PETERSON APRN E016.0 DIGGING RAKING AND SHOVELING 08/10/2013 LEARY DO, SHARIF K 919.4 INSECT BITE NONVENOMOUS OF OTHER MULTIPLE AND UNSPECIFIED SITES WITHOUT INFECTION 08/10/2013 LEARY DO, SHARIF K E016.0 DIGGING RAKING AND SHOVELING 08/10/2013 LEARY DO, SHARIF K 919.4 INSECT BITE NONVENOMOUS OF OTHER MULTIPLE AND UNSPECIFIED SITES WITHOUT INFECTION 08/10/2013 LEARY DO, SHARIF K E016.0 DIGGING RAKING AND SHOVELING 08/10/2013 LEARY DO, SHARIF K 919.4 INSECT BITE NONVENOMOUS OF OTHER MULTIPLE AND UNSPECIFIED SITES WITHOUT INFECTION 08/10/2013 LEARY DO, SHARIF K E016.0 DIGGING RAKING AND SHOVELING 08/10/2013 LEARY DO, SHARIF K 919.4 INSECT BITE NONVENOMOUS OF OTHER MULTIPLE AND UNSPECIFIED SITES WITHOUT INFECTION 08/10/2013 LEARY DO, SHARIF K E016.0 DIGGING RAKING AND SHOVELING 10/22/2013 LEARY DO, SHARIF K 785.6 ENLARGEMENT OF LYMPH NODES 10/22/2013 LEARY DO, SHARIF K 785.6 ENLARGEMENT OF LYMPH NODES 10/22/2013 LEARY DO, SHARIF K 785.6 ENLARGEMENT OF LYMPH NODES 09/23/2014 MARCO LYNCH MD Ot 272.4 09/23/2014 MARCO LYNCH MD Ot 401.9 09/23/2014 MARCO LYNCH MD Ot 785.1 09/23/2014 MARCO LYNCH MD Ot 786.50 09/23/2014 MARCO LYNCH MD Ot V17.3 10/11/2014 MARCO LYNCH MD Ot 272.4 10/11/2014 MARCO LYNCH MD Ot 401.9 10/11/2014 MARCO LYNCH MD Ot 785.1 10/11/2014 MARCO LYNCH MD Ot 786.50 10/11/2014 MARCO LYNCH MD Ot V17.3 11/10/2014 MARCO LYNCH MD Ot 272.4 11/10/2014 MARCO LYNCH MD Ot 401.9 11/10/2014 MARCO LYNCH MD Ot 785.1 11/10/2014 MARCO LYNCH MD Ot 786.50 11/10/2014 MARCO LYNCH MD Ot V17.3 04/07/2018 DEVON HERNADEZ DO Ot Z01.818 ENCOUNTER FOR OTHER PREPROCEDURAL EXAMIN 04/08/2018 DEVON HERNADEZ DO Ot Z01.818 ENCOUNTER FOR OTHER PREPROCEDURAL EXAMIN Procedures Code Description [place] [address] ROUTINE VENIPUNCTURE 03/11/2012 55602 CMP 03/12/2012 96729 LIPID PANEL 03/12/2012 69218 TSH 03/12/2012 66996 CBC 03/12/2012 13110 HEP C PCR QUANT (SERIAL) 03/12/2012 38639 ROUTINE VENIPUNCTURE 07/15/2012 01314 CMP 07/15/2012 77173 CBC 07/15/2012 40274 HEP C PCR QUANT (SERIAL) 07/15/2012 23015 UA W/ CULTURE IF INDICATED 03/11/2013 47243 ROUTINE VENIPUNCTURE 04/09/2013 [id number] GFR CALC (RESULT ONLY) 04/09/2013 76684 CMP 04/09/2013 89411 LIPID PANEL 04/09/2013 57870 ROUTINE VENIPUNCTURE 07/27/2013 20389 HEP C PCR QUANT (SERIAL) 07/27/2013 1003030 GFR CALC (RESULT ONLY) 07/27/2013 81214 CMP 07/27/2013 04456 ROUTINE VENIPUNCTURE 09/30/2013 [id number] GFR CALC (RESULT ONLY) 09/30/2013 49931 CMP 09/30/2013 28658 LIPID PANEL 09/30/2013 86476 ROUTINE VENIPUNCTURE 05/04/2014 75221 CMP 05/04/2014 32007 LIPID PANEL 05/04/2014 98047 ROUTINE VENIPUNCTURE 07/30/2014 15206 CMP 07/30/2014 59867 LIPID PANEL 07/30/2014 15348 HEP C PCR QUANT (SERIAL) 07/30/2014 Results Test Result Range CBC With Differential/Platelet - 06/01/16 08:40 WBC 7.7 x10E3/uL 3.4-10.8 RBC 5.42 x10E6/uL 4.14-5.80 Hemoglobin 15.5 g/dL 12.6-17.7 Hematocrit 46.8 % 37.5-51.0 MCV 86 fL 79-97 MCH 28.6 pg 26.6-33.0 MCHC 33.1 g/dL 31.5-35.7 RDW 14.3 % 12.3-15.4 Platelets 210 x10E3/uL 150-379 Neutrophils 63 % Lymphs 29 % Monocytes 7 % Eos 1 % Basos 0 % Neutrophils (Absolute) 4.9 x10E3/uL 1.4-7.0 Lymphs (Absolute) 2.2 x10E3/uL 0.7-3.1 Monocytes(Absolute) 0.5 x10E3/uL 0.1-0.9 Eos (Absolute) 0.1 x10E3/uL 0.0-0.4 Baso (Absolute) 0.0 x10E3/uL 0.0-0.2 Immature Granulocytes 0 % Immature Grans (Abs) 0.0 x10E3/uL 0.0-0.1 Comp. Metabolic Panel (14) - 06/01/16 08:40 Glucose, Serum 103 mg/dL 65-99 BUN 16 mg/dL 6-24 Creatinine, Serum 0.89 mg/dL 0.76-1.27 eGFR If NonAfricn Am 96 mL/min/1.73 >59 eGFR If Africn Am 110 mL/min/1.73 >59 BUN/Creatinine Ratio 18 9-20 Sodium, Serum 140 mmol/L 134-144 Potassium, Serum 4.9 mmol/L 3.5-5.2 Chloride, Serum 100 mmol/L 96-106 Carbon Dioxide, Total 24 mmol/L 18-29 Calcium, Serum 9.4 mg/dL 8.7-10.2 Protein, Total, Serum 7.4 g/dL 6.0-8.5 Albumin, Serum 4.7 g/dL 3.5-5.5 Globulin, Total 2.7 g/dL 1.5-4.5 A/G Ratio 1.7 1.1-2.5 Bilirubin, Total 0.3 mg/dL 0.0-1.2 Alkaline Phosphatase, S 77 IU/L 39-117 AST (SGOT) 17 IU/L 0-40 ALT (SGPT) 24 IU/L 0-44 Lipid Panel - 06/01/16 08:40 Cholesterol, Total 181 mg/dL 100-199 Triglycerides 124 mg/dL 0-149 HDL Cholesterol 46 mg/dL >39 VLDL Cholesterol German 25 mg/dL 5-40 LDL Cholesterol Calc 110 mg/dL 0-99 CBC - 07/10/17 08:48 WHITE BLOOD CELL COUNT 7.5 Thousand/uL 3.8-10.8 RED BLOOD CELL COUNT 5.70 Million/uL 4.20-5.80 HEMOGLOBIN 15.9 g/dL 13.2-17.1 HEMATOCRIT 49.8 % 38.5-50.0 MCV 87.4 fL 80.0-100.0 MCH 27.9 pg 27.0-33.0 MCHC 31.9 g/dL 32.0-36.0 RDW 13.6 % 11.0-15.0 PLATELET COUNT 203 Thousand/uL 140-400 MPV 10.2 fL 7.5-12.5 ABSOLUTE NEUTROPHILS 4815 cells/uL 9155-1186 ABSOLUTE LYMPHOCYTES 2085 cells/uL 850-3900 ABSOLUTE MONOCYTES 480 cells/uL 200-950 ABSOLUTE EOSINOPHILS 98 cells/uL 15-500 ABSOLUTE BASOPHILS 23 cells/uL 0-200 NEUTROPHILS 64.2 % NRG LYMPHOCYTES 27.8 % NRG MONOCYTES 6.4 % NRG EOSINOPHILS 1.3 % NRG BASOPHILS 0.3 % NRG HEP C PCR QUANT (Graph)-APPROVAL REQUIRED - 03/21/18 08:57 HCV RNA, QUANTITATIVE REAL TIME PCR <15 NOT DETECTED IU/mL NOT DETECTED HCV RNA, QUANTITATIVE REAL TIME PCR <1.18 NOT DETECTED Log IU/mL NOT DETECTED COMMENT NRG Encounters ACCT No. Visit Date/Time Discharge Status Pt. Type Provider Facility Loc./Unit Complaint [id number] 07/30/2014 07:36:00 07/30/2014 23:59:59 [facility] Outpatient SHARIF LEARY DO [id number] 05/04/2014 09:26:00 05/04/2014 23:59:59 [facility] Outpatient SHARIF LEARY DO [id number] 10/22/2013 12:25:00 10/22/2013 23:59:59 [facility] Outpatient SHARIF LEARY DO [id number] 09/30/2013 08:09:00 09/30/2013 23:59:59 [facility] Out[facility] SHARIF LEARY DO Doreen [id number] 08/10/2013 15:07:00 08/10/2013 23:59:59 CLS Outpatient SIRIA PETERSON APRN [id number] 07/27/2013 14:32:00 07/27/2013 23:59:59 CLS Outpatient SHARIF LEARY DO Doreen [id number] 04/21/2013 08:30:00 04/21/2013 23:59:59 CLS Outpatient SHARIF LEARY DO Doreen [id number] 04/10/2013 08:00:00 04/10/2013 23:59:59 CLS Outpatient BABAR BARKSDALE DDS [id number] 03/11/2013 16:06:00 03/11/2013 23:59:59 CLS Outpatient VENUS ONOFRE MD [id number] 07/24/2012 16:55:00 07/24/2012 23:59:59 CLS Outpatient SHARIF LEARY DO Doreen [id number] 07/15/2012 08:00:00 07/15/2012 23:59:59 CLS Outpatient GIBRAN DECKER SHARIF Doreen [id number] 03/11/2012 17:17:00 03/11/2012 23:59:59 CLS Outpatient [id number] 03/10/2012 17:03:00 03/10/2012 23:59:59 CLS Outpatient SHARIF LEARY DO D[place]en [id number] 11/12/2012 11:16:00 Document Registration [id number] 06/02/2016 08:36:00 Document Registration [email or web address] 09/08/2014 08:23:16 ACT Document Registration [id number] 03/21/2018 08:40:00 03/21/2018 23:59:59 CLS Outpatient SIRIA PETERSON APRN [facility] [id number] 03/21/2018 08:40:00 Document Registration [id number] 07/10/2017 09:00:00 Document Registration [id number] 04/07/2018 05:52:00 04/07/2018 16:10:00 DIS Outpatient DEVON HERNADEZ DO [facility] PREOP COLONOSCOPY/EGD [id number] 04/01/2018 07:15:00 04/01/2018 23:59:59 CLS Preadmit CRIS BEST, MARCO Monteiro [facility] CARD CHEST PAIN SYNDROME [id number] 09/08/2014 08:22:00 09/08/2014 23:59:59 CLS Outpatient MARCO LYNCH MD [facility] [id number] 04/11/2018 12:30:00 ACT Outpatient DEVON HERNADEZ DO [facility] ENDO SCREENING/GERD [id number] 04/09/2018 13:36:00 ACT Outpatient MARCO LYNCH MD [facility] CHEST PAIN SYNDROME [id number] 04/24/2010 09:10:00 Document Registration
[2018-04-11] MEDS ORDERED: LACTATED RINGERS 1,000 ML IV ONE (12:52)
[2018-04-11] MEDS ORDERED: LACTATED RINGERS 1,000 ML IV STA (13:08)
[2018-04-11] MEDS ORDERED: HURRICAINE EXT TUBE (BENZOCAINE) XX PRN (13:15)
[2018-04-11] MEDS ORDERED: PROPOFOL INJECTION 50 ML IV ONE ×2 (13:46→14:17)
[2018-04-11] MEDS ORDERED: MIDAZOLAM 2 MG/2 ML (VERSED) VIAL ONE (13:47)
--- NOTE | 2018-04-11 13:53 | Progress Note-Pre Operative ---
Pre-Operative Progress Note H&P Reviewed The H&P was reviewed, patient examined and no changes noted. Date Seen by Provider: Apr 11, 2018 Time Seen by Provider: 13:52 Date H&P Reviewed: Apr 11, 2018 Time H&P Reviewed: 13:52 Pre-Operative Diagnosis: GERD, screening colonoscopy DEVON HERNADEZ DO Apr 11, 2018 13:52
[2018-04-11] MEDS ORDERED: HURRICAINE EXT TUBE (BENZOCAINE) ONE (14:37)
--- NOTE | 2018-04-11 14:39 | Anesthesia-General Post-Op ---
MAC Patient Condition Mental Status/LOC: Same as Preop Cardiovascular: Satisfactory Nausea/Vomiting: Absent Respiratory: Satisfactory Pain: Controlled Complications: Absent Post Op Complications Complications None Follow Up Care/Instructions Patient Instructions None needed. Anesthesiology Discharge Order Discharge Order Patient is doing well, no complaints, stable vital signs, no apparent adverse anesthesia problems. No complications reported per nursing. KANWAL BARKSDALE CRNA Apr 11, 2018 14:39
--- NOTE | 2018-04-11 14:40 | Progress Note-Post Operative ---
Post-Operative Progess Note Surgeon (s)/Manager Zone (s) Surgeon DEVON HERNADEZ DO Manager Zone: na Pre-Operative Diagnosis GERD, screening colonoscopy Post-Operative Diagnosis hiatal hernia, gastric polyps, normal colon Procedure & Operative Findings Date of Procedure 04/11/18 Procedure Performed/Findings egd c biopsies, colonoscopy Anesthesia Type per single end sewer Estimated Blood Loss Estimated blood loss (mL): na Specimens/Packing Specimens Removed antrum, ge DEVON HERNADEZ DO Apr 11, 2018 14:40
[2018-04-11 14:45] VITALS: BP 122/71
--- NOTE | 2018-04-11 14:46 | Discharge Inst-Simple/Standard ---
Discharge Inst-Standard Patient Instructions/Follow Up Plan of Care/Instructions/FU: 2 weeks Junior Activity as Tolerated: Yes Discharge Diet: Regular Diet DEVON HERNADEZ DO Apr 11, 2018 14:46
[2018-04-11 15:10] VITALS: BP 133/98
[2018-04-11 15:28] VITALS: BP 133/98
--- NOTE | 2018-04-12 00:53 | OPERATIVE REPORT ---
DATE OF SERVICE: 04/11/2018 PREOPERATIVE DIAGNOSIS: Gastroesophageal reflux disease, screening colonoscopy. POSTOPERATIVE DIAGNOSES: 1. Small hiatal hernia. 2. Normal colon. 3. Gastric polyps. PROCEDURE PERFORMED: Esophagogastroduodenoscopy with biopsies and colonoscopy. SURGEON: Devon Pacheco DO ANESTHESIA: Per [employer]OADBAND TECHNICIAN. ESTIMATED BLOOD LOSS: None. COMPLICATIONS: None. INDICATIONS: The patient is a 58-year-old male with reflux and need for screening colonoscopy. He understands the risks and benefits of procedure and wished to proceed with procedure. Consent was signed and on the chart. DESCRIPTION OF PROCEDURE: The patient was taken to the endoscopy suite, placed in the left lower recumbent position. Timeout was performed. Scope was inserted in mouth, down the esophagus, stomach and into the duodenum without difficulty. There were no polyps, masses or ulcerations within the duodenum. Scope was slowly retracted back into the stomach where it was further insufflated. There were no masses or ulcerations. Some small gastric polyps present and small hiatal hernia. On retroflexion, no other pathology noted. Scope was returned to its normal position, slowly withdrawn to the distal esophagus, which had normal appearance. No polyps, masses, ulcerations or erythematous changes. Biopsy of the GE junction was obtained. Biopsy of the antrum was also obtained while in the stomach. Scope was then slowly retracted back until completely removed noting no other pathology. Digital rectal exam was performed. There were no palpable polyps, masses or ulcerations. Scope was then inserted in the rectum and advanced all the way to the cecum with minimal difficulty. The prep was adequate. Scope was then slowly retracted back. There were no polyps, masses or ulcerations in the cecum, ascending, transverse, descending or sigmoid colon. Once in the rectum, scope was also retroflexed noting no other pathology. Scope was returned to its normal position, slowly withdrawn until completely removed. The patient tolerated the procedure well without any complications. The patient will follow up in the office in two weeks to discuss pathology. The patient will need repeat colonoscopy in 10 years unless family history of colon cancer. The patient will follow up in the office in 2 weeks to discuss pathology results. We would not make any medicine changes until that time. Job ID: [id number] DocumentID: [id number] Dictated Date: 04/11/2018 14:50:00 Implementation Manager Date: 04/11/2018 23:59:00 Dictated By: DEVON PACHECO DO
== END 2018-04-11 15:20 | disposition home or self-care (01) ==
LOC: ENDO 12:30
PROVIDERS: ATTEND Surgery
DX: Z12.11 Encounter for screening for malignant neoplasm of colon (principal); K21.9 Gastro-esophageal reflux disease without esophagitis; K44.9 Diaphragmatic hernia without obstruction or gangrene; K31.7 Polyp of stomach and duodenum; I10 Essential (primary) hypertension; E78.2 Mixed hyperlipidemia; B19.20 Unspecified viral hepatitis C without hepatic coma; Z79.82 Long term (current) use of aspirin; Z79.899 Other long term (current) drug therapy; Z87.891 Personal history of nicotine dependence

== ENCOUNTER → 2018-04-18 | Outpatient (CLI) | payer OTHER | LOC: CARD 13:28 | PROVIDERS: ATTEND Internal Medicine Cardiovascular Disease | DX: R07.9 Chest pain, unspecified (principal); E78.2 Mixed hyperlipidemia; E66.9 Obesity, unspecified; I10 Essential (primary) hypertension; R00.2 Palpitations | CPT/HCPCS: 93306 ==

== ENCOUNTER → 2019-10-12 | Outpatient (CLI) | payer OTHER ==
[~2019-10-12] MED LIST changes: -METO-395 PO; +MTP100TCR PO; +OMEP40CA27 PO; -OMEP40CA36 PO
--- NOTE | 2019-10-12 15:45 | Diagnostic Imaging Report ---
PROCEDURE: US Scrotum. TECHNIQUE: Multiple real-time grayscale images were obtained over the scrotum in various projections bilaterally. INDICATION: Right scrotal swelling. FINDINGS: Testicular parenchyma appears homogeneous and normal bilaterally. No evidence for testicular mass. No findings of torsion, orchitis, or epididymitis. The patient does have a [id number] unilateral right hydrocele showing no septation or complexity. No hernia. IMPRESSION: Simple right hydrocele. No other sonographic abnormality. Dictated by: Dictated on workstation # [id number]
== END ==
LOC: RAD 14:33
PROVIDERS: ATTEND Surgery
DX: N43.3 Hydrocele, unspecified (principal)
CPT/HCPCS: 76870

== ENCOUNTER 2019-10-26 05:51 | Outpatient (RCR) | payer OTHER ==
[~2019-10-26] VITALS: Ht 177.8 cm; Wt 109.1 kg
[~2019-10-26 05:51] MED LIST changes: -ACYC800T PO; -AVOD0.5CAP PO; -LORA10TA76 PO; -OMEP20TA7 PO
[2019-10-26] MEDS ORDERED: LORA10TA76 PO (12:30)
[2019-10-26] MEDS ORDERED: AVOD0.5CAP PO (12:30)
[2019-10-26] MEDS ORDERED: OMEP20TA7 PO (12:30)
[2019-10-26] MEDS ORDERED: ACYC800T PO (12:30)
== END 2019-10-26 12:43 | disposition home or self-care (01) ==
LOC: PREOP 05:51
PROVIDERS: ATTEND Surgery
DX: Z01.818 Encounter for other preprocedural examination (principal)

== ENCOUNTER → 2019-10-26 | Outpatient (CLI) | payer OTHER ==
[~2019-10-26] MED LIST changes: +ACYC800T PO; +AVOD0.5CAP PO; +LORA10TA76 PO; +OMEP20TA7 PO
== END ==
LOC: LABNPT 08:52
PROVIDERS: ATTEND Internal Medicine
DX: Z20.828 Contact with and (suspected) exposure to other viral communicable diseases (principal)
CPT/HCPCS: 87635

== ENCOUNTER 2019-11-02 06:00 | Day surgery (SDC) | payer OTHER ==
[~2019-11-02] VITALS: Ht 177.8 cm; Wt 109.1 kg
[2019-11-02] VITALS (10 sets, daily range): BP systolic 114–143; BP diastolic 72–98
[~2019-11-02 06:00] MED LIST changes: +ACYC800T PO; +AVOD0.5CAP PO; +LORA10TA76 PO; +OMEP20TA7 PO
[2019-11-02] MEDS ORDERED: ceFAZolin INJECTION 1,000 MG in WATER (STERILE) FOR INJECTION 10 ML IV ONE (06:15)
[2019-11-02] MEDS ORDERED: MIDAZOLAM 2 MG/2 ML (VERSED) VIAL ONE (06:58)
[2019-11-02] MEDS ORDERED: ONDANSETRON 4 MG/2 ML (SDV) Z0FRAN ONE ×2 (06:58→09:48)
[2019-11-02] MEDS ORDERED: fentaNYL INJECTION 100 MCG/2 ML AMP ONE (06:58)
[2019-11-02] MEDS ORDERED: DEXAMETHASONE 10 MG/ML (DECADRON) 1 ML VIAL ONE (06:59)
[2019-11-02] MEDS ORDERED: proPOfol 200 MG/20 ML (DIPRIVAN) VIAL IV ONE (06:59)
[2019-11-02] MEDS ORDERED: SEVOFLURANE (ULTANE) 15 ML INHAL SOLN ONE ×7 (06:59→08:56)
[2019-11-02] MEDS ORDERED: LIDOCAINE PF 2% 5 ML (XYLOCAINE) VIAL ONE (06:59)
--- NOTE | 2019-11-02 07:03 | Progress Note-Pre Operative ---
Pre-Operative Progress Note H&P Reviewed The H&P was reviewed, patient examined and no changes noted. Date Seen by Provider: Nov 02, 2019 Time Seen by Provider: 07:02 Date H&P Reviewed: Nov 02, 2019 Time H&P Reviewed: 07:02 Pre-Operative Diagnosis: RT HYDROCELE MAUDE DEVI MD Nov 02, 2019 07:03
[2019-11-02] MEDS: LACTATED RINGERS 1,000 ML IV PRN ×2 (07:05→08:27)
--- NOTE | 2019-11-02 07:12 | Progress Note-Post Operative ---
Post-Operative Progess Note Surgeon (s)/Winch Stripper (s) Surgeon MAUDE DEVI MD Winch Stripper: Je HERNADEZ Pre-Operative Diagnosis RT HYDROCELE Post-Operative Diagnosis SAME Procedure & Operative Findings Date of Procedure 11/02/19 Procedure Performed/Findings RT HYDROCELECTOMY Anesthesia Type GENERAL Estimated Blood Loss Estimated blood loss (mL): NEGLIGIBLE Specimens/Packing Specimens Removed HYDROCELE SAC Packin/4# MIO DRAIN MAUDE DEVI MD Nov 02, 2019 07:12
--- NOTE | 2019-11-02 07:30 | Progress Note-Pre Operative ---
Pre-Operative Progress Note H&P Reviewed The H&P was reviewed, patient examined and no changes noted. Date Seen by Provider: Nov 02, 2019 Time Seen by Provider: 07:15 Date H&P Reviewed: Nov 02, 2019 Time H&P Reviewed: 07:15 Pre-Operative Diagnosis: umbilical hernia DEVON HERNADEZ DO Nov 02, 2019 07:30
[2019-11-02 07:32] LABS: BASOPHILS % (AUTO) 0 % (0-10); EOSINOPHILS # (AUTO) 0.2 10^3/uL (0.0-0.3); EOSINOPHILS % (AUTO) 2 % (0-10); HEMATOCRIT 42 % (40-54); LYMPHOCYTES # (AUTO) 2.4 X 10^3 (1.0-4.0); LYMPHOCYTES % (AUTO) 33 % (12-44); MEAN CORPUSCULAR HEMOGLOBIN 29 PG (25-34); MEAN CORPUSCULAR HGB CONC 33 G/DL (32-36); MEAN CORPUSCULAR VOLUME 87 FL (80-99); MEAN PLATELET VOLUME 10.1 FL (7.4-10.4); MONOCYTES # (AUTO) 0.6 X 10^3 (0.0-1.0); MONOCYTES % (AUTO) 8 % (0-12); NEUTROPHILS # (AUTO) 4.2 X 10^3 (1.8-7.8); NEUTROPHILS % (AUTO) 57 % (42-75); PLATELET COUNT 187 10^3/uL (130-400); RED CELL DISTRIBUTION WIDTH 13.9 % (10.0-14.5); WHITE BLOOD COUNT 7.3 10^3/uL (4.3-11.0)
[2019-11-02] MEDS ORDERED: ROCURONIUM 10 MG/ML 5 ML SYRINGE IV ONE (07:32)
[2019-11-02] MEDS ORDERED: BUP/EPI 0.5% 1:200,000 (SENSORCAINE) 30 ML VIAL ONE (07:46)
[2019-11-02] MEDS ORDERED: GLYCOPYRROLATE 0.2 MG/ML (ROBINUL) 2 ML VIAL ONE (08:56)
[2019-11-02] MEDS ORDERED: NEOSTIGMINE 3 MG/3 ML VIAL ONE (08:56)
[2019-11-02] MEDS ORDERED: HYDR-4226 PO (09:14)
[2019-11-02] MEDS ORDERED: DOCU-143 PO (09:14)
--- NOTE | 2019-11-02 09:17 | Discharge Inst-Simple/Standard ---
Discharge Inst-Standard Discharge Medications New, Converted or Re-Newed RX: RX on Chart Patient Instructions/Follow Up Plan of Care/Instructions/FU: 2 weeks Junior Activity as Tolerated: Yes Discharge Diet: Regular Diet Other Inst to Patient Follow up Appt: Make appointment for 2 week. Instructions: No lifting greater than 10 pounds. No strenuous activity. May shower in 24 hours, no tub bath or soaking. Use incentive spirometer at home as directed. No Smoking Skin/Wound Care: You have special glue over your incision that will fall off on it's own. Symptoms to Report: Appetite Changes, Extremity Discoloration, Numbness/Tingling, Swelling Increased, Bleeding Excessive, Eyesight Changes, Pain Increased, Urine Color Change, Constipation(Persistent), Fever over 101 degree F, Pain/Pressure in chest, Urinating Difficulty, Cough Up/Vomit Blood, Heart Beat Irreg/Pounding, Pain/Pressure in jaw, Vaginal Bleeding Increase, Cramps in feet or legs, Lightheadedness, Pain/Pressure in shoulder, Diarrhea(Persistent), Memory Changes Suddenly, Questions/Concerns, Weight gain consecutive days, Dizziness/Fainting, Nausea/Vomiting, Shortness of Breath, Weight gain over 2 pounds If questions or concerns contact your physician Or seek help at emergency department. DEOVN HERNADEZ DO Nov 02, 2019 09:17
--- NOTE | 2019-11-02 09:22 | Anesthesia-General Post-Op ---
General Patient Condition Mental Status/LOC: Same as Preop Cardiovascular: Satisfactory Nausea/Vomiting: Absent Respiratory: Satisfactory Pain: Controlled Complications: Absent Post Op Complications Complications None Follow Up Care/Instructions Patient Instructions None needed. Anesthesia/Patient Condition Patient Condition Patient is doing well, no complaints, stable vital signs, no apparent adverse anesthesia problems. No complications reported per nursing. [place] [facility] [place] AUTUMN RANDALL CRNA Nov 02, 2019 09:22
--- NOTE | 2019-11-02 09:23 | Progress Note-Post Operative ---
Post-Operative Progess Note Surgeon (s)/Diabetes Education Coordinator (s) Surgeon DEVON HERNADEZ DO Diabetes Education Coordinator: Dr. Tavarez to assist in retraction dissection and closure. Pre-Operative Diagnosis umbilical hernia, right inner thigh skin lesion Post-Operative Diagnosis incarcerated umbilical hernia, right inner thigh skin lesion. Procedure & Operative Findings Date of Procedure 11/02/19 Procedure Performed/Findings PROCEDURE: Laparoscopic incarcerated umbilical hernia repair with mesh. Excision right upper thigh skin lesion 0.8x1cm. COMPLICATIONS: None. INDICATIONS: The patient is a 59, male with an umbilical hernia, which has continued to increase in size and cause discomfort. The patient was explained the risk and benefits of the procedure and wished to proceed with the procedure. Consent was signed on the chart. DESCRIPTION OF PROCEDURE: The patient was taken into the operating suite, prepped and draped in sterile fashion. Surgical pause was performed. Local anesthetic was infiltrated in left upper quadrant. A 15 blade scalpel was used to make a small skin incision. Cautery was used to dissect down to the fascia, which was then scored and divided the muscle, went through the posterior sheath and a balloon trocar was inserted into the abdomen. The abdomen was then insufflated. Incarcerated omentum through the umbilical defect, Had to use hook cautery to reduce. A 5 mm trocar was placed in the right lower quadrant and a 5 mm trocar was placed in left lower quadrant. Echo Ventralight mesh was then inserted in the abdomen grabbed through the stab incision. The balloon was inflated on the mesh. Circumferential tacks were placed with a SecureStrap Tacker. The balloon was then removed and inner crown was created as well. The mesh was tacked with pressure being decreased. The 12 mm fascial defect was then closed using 0 Vicryl. The abdomen was then desufflated,the trocars were removed. The skin was then closed using 4-0 Monocryl in a running subcuticular fashion. The abdomen was washed and dried and Skin Affix was placed over the incisions. The right inner thigh lesion was then prepped and draped. The lesion grasped and cautery was used to cut the lesion out 0.8x1cm skin and subcutaneous tissue removed. 4-0 monocryl was used to closed the skin. Skin-affix was used over incsion. The patient tolerated procedure well without any complications. He was taken to recovery room in stable condition. Anesthesia Type general Estimated Blood Loss Estimated blood loss (mL): min Specimens/Packing Specimens Removed na DEVON HERNADEZ DO Nov 02, 2019 09:23
[2019-11-02] MEDS ORDERED: morphine INJ 10 MG/ML 1ML (SYR OR VIAL) IVP ONE (09:30)
[2019-11-02] MEDS ORDERED: MEPERIDINE (DEMEROL) INJ 50 MG/ML IVP ONE (09:30)
[2019-11-02] MEDS ORDERED: CEPH-507 PO (09:38)
[2019-11-02] MEDS ORDERED: TRM50T PO (09:38)
[2019-11-02] MEDS ORDERED: morphine INJ 10 MG/ML 1ML (SYR OR VIAL) ONE (09:47)
[2019-11-02] MEDS: ONDANSETRON 4 MG/2 ML (SDV) Z0FRAN IVP PRN ×2 (09:53→10:30)
[2019-11-02] MEDS ORDERED: HYDROcodone/APAP 5 MG/325 MG (LORTAB) TAB ONE (10:34)
[2019-11-02] MEDS ORDERED: HYDROcodone/APAP 5 MG/325 MG (LORTAB) TAB PO ONE (10:45)
--- NOTE | 2019-11-02 13:18 | OPERATIVE REPORT ---
DATE OF SERVICE: 11/02/2019 PREOPERATIVE DIAGNOSIS: On my part, right hydrocele. POSTOPERATIVE DIAGNOSIS: On my part, right hydrocele. OPERATION PERFORMED: Right hydrocelectomy. SURGEON: Maude Devi MD CLIENT SUPPORT ASSOCIATE: Chris Pacheco DO. ANESTHESIA: General. COMPLICATIONS: None. DESCRIPTION OF PROCEDURE: Under satisfactory general anesthesia, the patient in supine position, genitalia were prepped and draped in the usual sterile fashion. Incision was made in the medial raphae carried through the scrotal compartment on the right side. A generous amount of hydrocele fluid was suctioned. The testicle and appendages were delivered in the wound. There was some sign of some chronic epididymitis. The hydrocele sac itself was not large enough to excise, so I everted it behind the spermatic cord with few interrupted 3-0 chromic catgut. Hemostasis was complete. The testicle was replaced into the right scrotal compartment that was drained with a quarter of an inch Ronnie drain brought through a separate stab wound at the bottom of the incision and secured in position with a 3-0 chromic catgut suture. Closure was performed in two layers, the dartos with a running 3-0 chromic catgut and the skin was interrupted 4-0 Vicryl. Telfa, fluffs, and scrotal support was applied. Estimated blood loss on my part negligible. The patient tolerated the procedure and anesthesia well and Dr. Pacheco proceeded with his surgery that he will dictate. Job ID: [id number] DocumentID: [id number] Dictated Date: 11/02/2019 08:42:04 Vp Construction Date: 11/02/2019 13:18:10 Dictated By: MAUDE DEVI MD
== END 2019-11-02 11:25 | disposition home or self-care (01) ==
LOC: SDC 06:00
PROVIDERS: ATTEND Surgery
DX: K42.0 Umbilical hernia with obstruction, without gangrene (principal); N43.3 Hydrocele, unspecified; N45.1 Epididymitis; L91.8 Other hypertrophic disorders of the skin; K21.9 Gastro-esophageal reflux disease without esophagitis; I10 Essential (primary) hypertension; E78.2 Mixed hyperlipidemia; E66.9 Obesity, unspecified; B19.20 Unspecified viral hepatitis C without hepatic coma; I65.23 Occlusion and stenosis of bilateral carotid arteries; Z68.34 Body mass index [BMI] 34.0-34.9, adult; Z79.899 Other long term (current) drug therapy; Z79.82 Long term (current) use of aspirin; Z87.891 Personal history of nicotine dependence
CPT/HCPCS: 11401; 49653; 55040; 85025; 87081; C1781; 36415; 88304